=== PATIENT | female | born 1955 | race Caucasian/White ===

== ENCOUNTER 2016-07-04 10:21 | Emergency (ER) | payer BC ==
[~2016-07-04] VITALS: Ht 180.3 cm; Wt 69.4 kg
[2016-07-04] MEDS ORDERED: IV NORMAL SALINE 1000ML BAG 1,000 ML IV SCH (10:47)
--- NOTE | 2016-07-04 10:47 | PHYS DOC ---
Past Medical History Past Medical History: No Pertinent History Past Surgical History: No Surgical History Alcohol Use: None Drug Use: None Adult General Chief Complaint Chief Complaint: NAUSEA/VOMITING/DIARRHA HPI HPI Patient is a 60 year old female who presents with N/V/D. Patient reports she has been sick for the past 3 days. Her symptoms include sore throat, L ear ache , fatigue, N/V/D (vomiting and diarrhea every couple hours yesterday), general body aches. She denies fever. She has tried mucinex, nyquil, aspirin with insufficient relief. She has been around her nephew who is sick. No other acute complaints. Review of Systems Review of Systems Constitutional: Fatigue. Denies fever or chills Eyes: Denies change in visual acuity or eye pain HENT: Sore throat, L ear ache Respiratory: Denies cough or shortness of breath Cardiovascular: Denies chest pain GI: Nausea/vomiting/diarrhea. Denies abdominal pain, bloody stools : Denies dysuria or hematuria Musculoskeletal: General body aches Integument: Denies rash or skin lesions Neurologic: Denies headache, focal weakness or sensory changes Current Medications Current Medications Current Medications Medications (Trade) Dose Ordered Sig/Jase Start Time Stop Time Status Last Admin Dose Admin Famotidine (Pepcid) 20 mg 1X ONCE 07/04/16 11:00 07/04/16 11:01 DC 07/04/16 10:56 20 MG Ondansetron HCl (Zofran) 4 mg 1X ONCE 07/04/16 11:00 07/04/16 11:01 DC 07/04/16 10:57 4 MG Sodium Chloride (Iv Sodium Chloride 0.9% 1000ml Bag) 1,000 ml @ 1,000 mls/hr Q1H 07/04/16 10:47 07/04/16 11:46 DC 07/04/16 10:52 1,000 MLS/HR Allergies Allergies Allergies Coded Allergies Type Severity Reaction Last Updated Verified No Known Drug Allergies 07/04/16 No Physical Exam Physical Exam Constitutional: Well developed, well nourished, no acute distress, non-toxic appearance HENT: Normocephalic, atraumatic, bilateral external ears normal. L ear canal slightly erythematous, TM normal Eyes: EOMI, conjunctiva normal, no discharge Neck: Normal range of motion, no stridor Cardiovascular: Tachycardic, regular rhythm, no murmur Lungs & Thorax: Bilateral breath sounds clear to auscultation Abdomen: Bowel sounds normal, soft, non-distended, no TTP Skin: Warm, dry, no erythema, no rash Extremities: No obvious deformity, no edema Neurologic: Alert and oriented X 3, no gross deficits noted Current Patient Data Vital Signs Vital Signs Date Time Temp Pulse Resp B/P Pulse Ox O2 Delivery O2 Flow Rate FiO2 07/04/16 12:10 77 20 136/64 94 07/04/16 10:36 97.8 Room Air 97.8 Lab Values Laboratory Tests Test 07/04/16 10:30 07/04/16 10:50 Urine Collection Type Unknown Urine Color Hollie Urine Clarity Clear Urine pH 6.0 Urine Specific [place] >=1.030 Urine Protein >=300mg/dL (NEG-TRACE) Urine Glucose (UA) Negativemg/dL (NEG) Urine Ketones (Stick) Negativemg/dL (NEG) Urine Blood Small (NEG) Urine Nitrite Negative (NEG) Urine Bilirubin Small (NEG) Urine Urobilinogen Dipstick 1.0mg/dL (0.2 mg/dL) Urine Leukocyte Esterase Trace (NEG) Urine RBC Occ/HPF (0-2) Urine WBC Occ/HPF (0-4) Urine Squamous Epithelial Cells Few/LPF Urine Bacteria Few/HPF (0-FEW) White Blood Count 12.3x10^3/uL (4.0-11.0) H Red Blood Count 5.06x10^6/uL (3.50-5.40) Hemoglobin 14.4g/dL (12.0-15.5) Hematocrit 43.0% (36.0-47.0) Mean Corpuscular Volume 85fL (79-100) Mean Corpuscular Hemoglobin 29pg (25-35) Mean Corpuscular Hemoglobin Concent 34g/dL (31-37) Red Cell Distribution Width 13.8% (11.5-14.5) Platelet Count 291x10^3/uL (140-400) Neutrophils (%) (Auto) 78% (31-73) H Lymphocytes (%) (Auto) 14% (24-48) L Monocytes (%) (Auto) 5% (0-9) Eosinophils (%) (Auto) 1% (0-3) Basophils (%) (Auto) 1% (0-3) Neutrophils # (Auto) 9.6x10^3uL (1.8-7.7) H Lymphocytes # (Auto) 1.7x10^3/uL (1.0-4.8) Monocytes # (Auto) 0.6x10^3/uL (0.0-1.1) Eosinophils # (Auto) 0.1x10^3/uL (0.0-0.7) Basophils # (Auto) 0.1x10^3/uL (0.0-0.2) Sodium Level 136mmol/L (136-145) Potassium Level 3.5mmol/L (3.5-5.1) Chloride Level 98mmol/L (98-107) Carbon Dioxide Level 25mmol/L (21-32) Anion Gap 13 (6-14) Blood Urea Nitrogen 15mg/dL (7-20) Creatinine 0.6mg/dL (0.6-1.0) Estimated GFR (Cockcroft-Gault) 102.7 BUN/Creatinine Ratio 25 (6-20) H Glucose Level 131mg/dL (70-99) H Calcium Level 9.3mg/dL (8.5-10.1) Total Bilirubin 0.3mg/dL (0.2-1.0) Aspartate Amino Transferase (AST) 9U/L (15-37) L Alanine Aminotransferase (ALT) 18U/L (14-59) Alkaline Phosphatase 143U/L (46-116) H Total Protein 8.1g/dL (6.4-8.2) Albumin 3.6g/dL (3.4-5.0) Albumin/Globulin Ratio 0.8 (1.0-1.7) L Laboratory Tests 07/04/16 10:50 Laboratory Tests 07/04/16 10:50 EKG EKG [] Radiology/Procedures Radiology/Procedures [] Course & Med Decision Making Course & Med Decision Making Pertinent Labs and Imaging studies reviewed. (See chart for details) Patient is 60 year old female who presents with N/V/D, fatigue, body aches. Likely viral gastroenteritis. Will check labs, UA. IVF, nausea meds, pepcid ordered for relief of symptoms. Labs show mild leukocytosis, otherwise largely unremarkable. Discussed results with patient, who is feeling better at this time. Will plan discharge home with rx for zofran, instructions for follow up, return precautions. Dragon Disclaimer Dragon Disclaimer This electronic medical record was generated, in whole or in part, using a voice recognition dictation system. Departure Departure Impression: Primary Impression: Gastroenteritis Disposition: 01 HOME, SELF-CARE Condition: IMPROVED Referrals: MAYA MEDINA MD (PCP) Patient Instructions: Viral Gastroenteritis Additional Instructions: Thank you for allowing us to provide care today in the Emergency Department. Take the provided medication as directed. It is important that you stay well hydrated. Schedule a follow up appointment with your primary care doctor. Return promptly to the Emergency Department if you develop any new or concerning symptoms. Scripts Ondansetron (Zofran Odt)4 Mg Tab.rapdis1 Tab SL Q8HRS PRN NAUSEA #15 TAB Prov:TASHA LARSON MD 07/04/16 TASHA LARSON MD Jul 04, 2016 10:47
[2016-07-04] MEDS ORDERED: ONDANSETRON PF 4 MG/2 ML VIAL. IV ONE (11:00)
[2016-07-04] MEDS ORDERED: FAMOTIDINE 20 MG/2 ML VIAL IVP ONE (11:00)
[2016-07-04 11:04] LABS: BASO # 0.1 x10^3/uL (0.0-0.2); BASO % 1 % (0-3); EOS % 1 % (0-3); HEMOGLOBIN 14.4 g/dL (12.0-15.5); LYMPH # 1.7 x10^3/uL (1.0-4.8); LYMPH % 14 % (24-48); MEAN CORPUSCULAR HEMOGLOBIN 29 pg (25-35); MEAN CORPUSCULAR HGB CONC 34 g/dL (31-37); MEAN CORPUSCULAR VOLUME 85 fL (79-100); MONO % 5 % (0-9); NEUT % 78 % (31-73); PLATELET COUNT 291 x10^3/uL (140-400); RED BLOOD COUNT 5.06 x10^6/uL (3.50-5.40); RED CELL DISTRIBUTION WIDTH 13.8 % (11.5-14.5); WHITE BLOOD COUNT 12.3 x10^3/uL (4.0-11.0)
[2016-07-04 11:10] LABS: CALCIUM 9.3 mg/dL (8.5-10.1); CREATININE 0.6 mg/dL (0.6-1.0); GFR 102.7; POTASSIUM 3.5 mmol/L (3.5-5.1)
[2016-07-04 11:16] LABS: ALBUMIN 3.6 g/dL (3.4-5.0); ALBUMIN/GLOBULIN RATIO 0.8 (1.0-1.7); TOTAL BILIRUBIN 0.3 mg/dL (0.2-1.0); TOTAL PROTEIN 8.1 g/dL (6.4-8.2)
[2016-07-04 11:18] LABS: BILIRUBIN,URINE SMALL (NEG); GLUCOSE,URINE NEGATIVE (NEG); NITRITE,URINE NEGATIVE (NEG); PROTEIN,URINE >=300 mg/dL (NEG-TRACE)
[2016-07-04 11:46] LABS: BACTERIA,URINE FEW /HPF (0-FEW); RBC,URINE OCC /HPF (0-2); SQUAMOUS EPITHELIAL CELL,UR FEW /LPF; WBC,URINE OCC /HPF (0-4)
[2016-07-04] MEDS ORDERED: ONDA4TAB10 SL (11:58)
[2016-07-04 12:10] VITALS: BP 136/64
== END 2016-07-04 12:11 | disposition home or self-care (01) ==
LOC: ER 10:21
DX: K52.9 Noninfective gastroenteritis and colitis, unspecified (principal); R00.0 Tachycardia, unspecified; J02.9 Acute pharyngitis, unspecified; H92.02 Otalgia, left ear; R53.83 Other fatigue; M79.1 Myalgia
CPT/HCPCS: 36415; 80053; 81001; 85027; 87086; 96361; 96374; 96375; 99284; J2405; J7030; S0028

== ENCOUNTER 2016-07-08 16:56 | Observation (INO) | payer BC ==
[~2016-07-08] VITALS: Ht 180.3 cm; Wt 64.6 kg
[~2016-07-08 16:56] MED LIST: ONDA4TAB10 SL
[2016-07-08] MEDS ORDERED: MORPHINE SULFATE 2 MG/ML DISP.SYRIN. IV PRN ×2 (17:15→19:30)
[2016-07-08] MEDS ORDERED: HYDROCODONE/APAP 5/325MG TABLET. PO ONE (17:15)
[2016-07-08] MEDS ORDERED: ASPIRIN 81 MG TAB.CHEW PO ONE (17:15)
[2016-07-08] MEDS ORDERED: NITROGLYCERIN SUBLINGUAL 0.4 MG BOTTLE OF 25. SL PRN (17:15)
[2016-07-08 17:41] LABS: BASO % 0 % (0-3); EOS % 1 % (0-3); HEMATOCRIT 37.5 % (36.0-47.0); HEMOGLOBIN 12.5 g/dL (12.0-15.5); LYMPH # 1.7 x10^3/uL (1.0-4.8); LYMPH % 11 % (24-48); MEAN CORPUSCULAR HEMOGLOBIN 29 pg (25-35); MEAN CORPUSCULAR HGB CONC 33 g/dL (31-37); MEAN CORPUSCULAR VOLUME 86 fL (79-100); MONO % 6 % (0-9); NEUT % 82 % (31-73); PLATELET COUNT 269 x10^3/uL (140-400); RED BLOOD COUNT 4.39 x10^6/uL (3.50-5.40); RED CELL DISTRIBUTION WIDTH 13.6 % (11.5-14.5); WHITE BLOOD COUNT 15.1 x10^3/uL (4.0-11.0)
[2016-07-08 18:03] LABS: CALCIUM 9.4 mg/dL (8.5-10.1); CREATININE 0.5 mg/dL (0.6-1.0); GFR 126.7; POTASSIUM 3.5 mmol/L (3.5-5.1)
[2016-07-08 18:08] LABS: ALBUMIN 3.7 g/dL (3.4-5.0); DIRECT BILIRUBIN 0.1 mg/dL (0.0-0.2); TOTAL BILIRUBIN 0.3 mg/dL (0.2-1.0); TOTAL PROTEIN 7.5 g/dL (6.4-8.2)
--- NOTE | 2016-07-08 19:27 | PHYS DOC ---
Past Medical History Past Medical History: No Pertinent History Past Surgical History: No Surgical History Alcohol Use: None Drug Use: None Adult General Chief Complaint Chief Complaint: COUGH HPI HPI 52-year-old female presenting to the emergency department today with a cough. Feels a pain in her left neck and shoulder. The pain radiates up her left neck into her occiput. It is sharp moderate and intermittent. It is worse with movement. She also complains of a sharp pain in her chest is worse with coughing. Review of Systems Review of Systems ROS negative for fevers chills nausea vomiting diaphoresis. All other review of systems is negative unless otherwise noted in history of present illness. Current Medications Current Medications Current Medications Medications (Trade) Dose Ordered Sig/Jase Start Time Stop Time Status Last Admin Dose Admin Acetaminophen/ Hydrocodone Bitart (Lortab 5/325) 2 tab 1X ONCE 07/08/16 17:15 07/08/16 17:16 DC 07/08/16 17:37 2 TAB Aspirin (Children'S Aspirin) 324 mg 1X ONCE 07/08/16 17:15 07/08/16 17:16 DC 07/08/16 17:37 324 MG Azithromycin (Zithromax) 500 mg 1X ONCE 07/08/16 19:30 07/08/16 19:32 DC 07/08/16 19:44 500 MG Morphine Sulfate 2 mg PRN Q2HR PRN 07/08/16 19:30 07/09/16 19:29 Nitroglycerin (Nitrostat) 0.4 mg PRN Q5MIN PRN 07/08/16 17:15 07/08/16 17:15 DC Ondansetron HCl (Zofran) 4 mg PRN Q8HRS PRN 07/08/16 19:30 07/09/16 19:29 Allergies Allergies Allergies Coded Allergies Type Severity Reaction Last Updated Verified No Known Drug Allergies 07/04/16 No Physical Exam Physical Exam Constitutional: Well developed, well nourished, no acute distress, non-toxic appearance. HENT: Normocephalic, atraumatic, bilateral external ears normal, oropharynx moist, no oral exudates, nose normal. [] Eyes: PERRLA, EOMI, conjunctiva normal, no discharge. [] Neck: Normal range of motion, no tenderness, supple, no stridor. Cardiovascular:Heart rate regular rhythm, no murmur [] Lungs & Thorax: Bilateral breath sounds clear to auscultation Abdomen: Bowel sounds normal, soft, no tenderness, no masses, no pulsatile masses. [] Skin: Warm, dry, no erythema, no rash. [] Back: No tenderness, no CVA tenderness. Extremities: No tenderness, no cyanosis, no clubbing, ROM intact, no edema. [] Neurologic: Alert and oriented X 3, normal motor function, normal sensory function, no focal deficits noted. Psychologic: Affect normal, judgement normal, mood normal. [] Current Patient Data Vital Signs Vital Signs Date Time Temp Pulse Resp B/P Pulse Ox O2 Delivery O2 Flow Rate FiO2 07/08/16 18:05 100 19 146/64 100 07/08/16 17:08 98.6 Room Air 98.6 Lab Values Laboratory Tests Test 07/08/16 17:30 White Blood Count 15.1x10^3/uL (4.0-11.0) H Red Blood Count 4.39x10^6/uL (3.50-5.40) Hemoglobin 12.5g/dL (12.0-15.5) Hematocrit 37.5% (36.0-47.0) Mean Corpuscular Volume 86fL (79-100) Mean Corpuscular Hemoglobin 29pg (25-35) Mean Corpuscular Hemoglobin Concent 33g/dL (31-37) Red Cell Distribution Width 13.6% (11.5-14.5) Platelet Count 269x10^3/uL (140-400) Neutrophils (%) (Auto) 82% (31-73) H Lymphocytes (%) (Auto) 11% (24-48) L Monocytes (%) (Auto) 6% (0-9) Eosinophils (%) (Auto) 1% (0-3) Basophils (%) (Auto) 0% (0-3) Neutrophils # (Auto) 12.3x10^3uL (1.8-7.7) H Lymphocytes # (Auto) 1.7x10^3/uL (1.0-4.8) Monocytes # (Auto) 0.9x10^3/uL (0.0-1.1) Eosinophils # (Auto) 0.1x10^3/uL (0.0-0.7) Basophils # (Auto) 0.0x10^3/uL (0.0-0.2) Sodium Level 139mmol/L (136-145) Potassium Level 3.5mmol/L (3.5-5.1) Chloride Level 100mmol/L (98-107) Carbon Dioxide Level 26mmol/L (21-32) Anion Gap 13 (6-14) Blood Urea Nitrogen 13mg/dL (7-20) Creatinine 0.5mg/dL (0.6-1.0) L Estimated GFR (Cockcroft-Gault) 126.7 Glucose Level 144mg/dL (70-99) H Calcium Level 9.4mg/dL (8.5-10.1) Total Bilirubin 0.3mg/dL (0.2-1.0) Direct Bilirubin 0.1mg/dL (0.0-0.2) Aspartate Amino Transferase (AST) 5U/L (15-37) L Alanine Aminotransferase (ALT) 12U/L (14-59) L Alkaline Phosphatase 124U/L (46-116) H Troponin I Quantitative < 0.017ng/mL (0.000-0.055) TP-Nkn-E-Type Natriuretic Peptide 3035pg/mL (0-124) H Total Protein 7.5g/dL (6.4-8.2) Albumin 3.7g/dL (3.4-5.0) Lipase 80U/L (73-393) Laboratory Tests 07/08/16 17:30 Laboratory Tests 07/08/16 17:30 EKG EKG EKG shows sinus tachycardia. Intervals within normal limits. [place] is within normal limits. ST segments show minimal repolarization and are within normal limits. Radiology/Procedures Radiology/Procedures [] Chest x-ray shows mild pulmonary congestion. No pneumothorax or infiltrate present. Course & Med Decision Making Course & Med Decision Making Pertinent Labs and Imaging studies reviewed. (See chart for details) 52-year-old female presenting to the emergency department today with left neck and shoulder pain with coughing. Physical exam unremarkable. Vital signs showed tachycardia with hypertension. EKG largely unremarkable other than tachycardia. Chest x-ray showed mild vascular congestion. BC shows leukocytosis with a proBNP elevation of 3000. Troponin within the reference range of normal. The patient was given oral antibiotics along with pain medication and aspirin in the emergency department and admitted for further evaluation workup and care. Cardiology consultation placed. Dragon Disclaimer Dragon Disclaimer This electronic medical record was generated, in whole or in part, using a voice recognition dictation system. Departure Departure Impression: Primary Impression: PNA (pneumonia) Additional Impression: Elevated brain natriuretic peptide (BNP) level Disposition: ADMITTED INPATIENT Admitting Physician: Maya Esquivel Condition: STABLE Referrals: MAYA ESQUIVEL MD (PCP) Problem Qualifiers VALORIE JACOBSEN MD Jul 08, 2016 19:27
[2016-07-08] MEDS ORDERED: AZITHROMYCIN 250 MG TABLET PO ONE (19:30)
[2016-07-08] MEDS ORDERED: ONDANSETRON PF 4 MG/2 ML VIAL. IV PRN (19:30)
[2016-07-08 20:59] LABS: OBC FLU VALID
--- NOTE | 2016-07-08 21:26 | EKG ---
[facility] [address] [place] [address] Test Date: 2016-07-08 Test Time: 17:07:49 Pat Name: IRIS GIBBS Department: Room: Gender: Female [place]: : 1955 Requested By: VALORIE JACOBSEN Order Number: [id number] Reading MD: Madelaine Brito Measurements Intervals [place] Rate: 111 P: 52 IL: 156 QRS: 57 QRSD: 84 T: 65 QT: 330 QTc: 452 Interpretive Statements SINUS TACHYCARDIA LEFT ATRIAL ABNORMALITY ABNORMAL ECG RI6.01 No previous ECG available for comparison Electronically Signed On 07-11-2016 23:25:29 SIGNAL CONSTRUCTOR by Madelaine Brito
--- NOTE | 2016-07-08 21:26 | ACF ---
Admission Forms Criteria PNEUMONIA, COMMUNITY ACQUIRED Clinical Indications for Admission to Inpatient Care ( Place 'X' for any and all applicable criteria): Admission is indicated for ANY ONE of the following (1)(2)(3): [ ]I. Hypoxemia indicated by ANY ONE of the following: [ ]a) Oxygen saturation less than 90% while breathing room air [ ]b) PO2 less than 60 mm Hg (8.0 kPa) while breathing room air [ ]c) Chronic lung disease with significant deterioration from baseline oxygenation [X ]II. Appropriate diagnostic testing and treatment unavailable in outpatient or recovery facility (eg,testing or infection control measures unavailable(10) [ ]III. Moderate-risk or high-risk category patients (Pneumonia Severity Index (PSI) class IV or V, or CURB-65 score of 3 or greater). [ ]IV. Outpatient treatment failure as indicated by ANY ONE of the following(9) : [ ]a) Failure to respond to antibiotic (eg, resistant organism) [ ]b) Clinically significant adverse effects from medication (eg, vomiting) [ ]c) Complications of pneumonia (eg, empyema, bacteremia) [ ]d) Significant worsening of comorbid cond necessitating inpatient care (eg, chronic heart failure) [ ]V. Intermediate-risk category patients (eg, PSI class III or CURB-65 score 2) who do not improve with initial therapy and observation. [ ]. Immunocompromised patients (eg, AIDS, chronic steroid use) at moderate or high risk based on clinical evaluation. [ ]VII. Complicated pleural effusions (eg, exudative, loculated) [X ]VIII.Hemodynamic instability [ ] IX. Altered mental status that is severe or persistent. [ ]X. Dehydration that is severe or persistent. [ ]XI. Bacteremia [ ]XII. Respiratory finding (eg. tachypnea) that do not respond to outpatient or observation care treatment Extended stay beyond goal length of stay may be needed for (20) [ ]a) Unclear diagnosis [ ]b) Pleural disease [ ]c) Severe pneumonia or treatment failure (25 [ ]d) Respiratory failure (anticipate invasive or noninvasive ventilatory support) [ ]e) Abnormal serum electrolytes (serum Na concentration less than 135 mEq/L (mmol/L) (32)(33) [ ]f) Clinically significant comorbid illness (eg, heart failure, atrial fibrillation with rapid heart rate, alcohol withdrawal, renal insufficiency)(34)(35) [ ]g) Comorbid acute exacerbation of COPD(36) [ ]h) Concomitant diagnosis of malignancy that may be associated with malnutrition, immunologic impairment, or bronchial obstruction. [ ]i) Concomitant altered mental status [ ]j) Culture-identified Gram-negative or antibiotic-resistant organism (eg, Pseudomonas, methicillin-resistant Staphylococcus aureus)(30) [ ]k) Healthcare-associated pneumonia The original [employer] content created by [employer] has been revised. The portions of the content which have been revised are identified through the use of italic text or in bold, and [facility] has neither reviewed nor approved the modified material. All other unmodified content is copyright [employer]. Please see references footnoted in the original [employer] edition 2016 Admission Criteria Met?: Yes ALVARADO CABRERA Jul 08, 2016 21:26
[2016-07-08 22:30] VITALS: BP 149/70
[2016-07-08 23:02] VITALS: BP 144/69
[2016-07-08] MEDS ORDERED: PROCHLORPERAZINE 10 MG/2 ML VIAL. IM PRN (23:30)
--- NOTE | 2016-07-09 00:18 | HP ---
ADMIT DATE: 07/08/2016 CHIEF COMPLAINT: Shoulder pain, elevated BNP. HISTORY OF PRESENT ILLNESS: The patient is a 60-year-old woman, without any significant medical problems, who presented to the Emergency Room for the second time in 1 week, today with left trapezius muscle pain. She relates that she was actually here on Tuesday with upper respiratory symptoms. Had general malaise without any fevers. Got IV fluids and actually felt much better. Went home from the Emergency Room and rested for a few days. She went back to work today, did fairly well during her work day; however, suddenly started having shoulder pain in her left upper shoulder. 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 States that pain actually got worse with deep breathing and now actually has significantly improved. She did receive Lortab x 2 in the Emergency Room; is a bit nauseous and received Zofran, but has ongoing symptoms. In her evaluation, a proBNP was obtained for unknown reasons and this was resulted at 3000, raising concern for CHF. Chest x-ray, however, was negative. She is now admitted for further workup and care. PAST MEDICAL HISTORY: None. FAMILY HISTORY: Father with heart disease, at 64. Mother with stroke. SOCIAL HISTORY: Lives with her sister. Works at [employer]. Smokes about a pack and a half a day and has done this for the past few days as well. Denies any alcohol or drug use. ALLERGIES: No known drug allergies. MEDICATIONS: No home medications. REVIEW OF SYSTEMS: Positive as per HPI. Rest of organ system review is negative. PHYSICAL EXAMINATION: VITAL SIGNS: From today, show a blood pressure of 144/69, heart rate at 103, respiratory rate at 20. She is afebrile. GENERAL: This is an ill-appearing, 60-year-old, woman. Alert and oriented. No acute distress. HEENT: Shows no scleral icterus. NECK: Supple, without any lymphadenopathy. LUNGS: Fairly clear bilaterally. HEART: Regular rate and rhythm. ABDOMEN: Has positive bowel sounds, soft, nontender. EXTREMITIES: Show no edema. Shoulder on the left without any tenderness to palpation. She is able to move arm without difficulties. LABORATORY DATA: CBC from today shows WBC of 15.1, hemoglobin 12.5, platelets at 269, neutrophils at 82. Chemistries with BUN and creatinine of 13 and 0.5, normal electrolytes, normal LFTs. BNP of 3035. First troponin negative. Serologies for flu A and B are negative. RADIOGRAPHIC IMAGING: Chest x-ray reviewed by myself shows a left lingular infiltrate. ASSESSMENT AND PLAN: The patient is a 60-year-old woman, with suspected pneumonia. BNP is somewhat of a red jc in her presentation. We will admit. Continue azithromycin, which had been started in the Emergency Room for 2 additional days for atypical pneumonia. Currently not producing any sputum. She will receive ibuprofen for her pain as this does seem musculoskeletal/possible pleuritic given the worsening with deep breathing. Suspect that the 10 mg of Lortab has caused the nausea and vomiting that is currently ongoing. This had not been present at presentation. BNP is elevated and somewhat unexplained. She clearly does not have cardiomegaly. We will obtain echo to rule out cardiac etiology. We will keep her on gentle IV fluids. She can have regular diet. Blood pressure at admission was normal, but has been somewhat elevated at borderline measurements since then. We will monitor overnight. If persistent, consider starting blood pressure medications. For prophylaxis, we will start on H2-pako. Lovenox in a.m. if prolonged hospitalization is required. LEXIS FISCHER MD DR: PO/nts JOB#: [id number] / [id number] JAYDA
[2016-07-09 03:04] VITALS: BP 144/66
[2016-07-09] MEDS ORDERED: ACETAMINOPHEN 325 MG TABLET. PO PRN (03:45)
[2016-07-09] MEDS ORDERED: IV 1/2 NORMAL SALINE 1,000 ML IV SCH (03:45)
[2016-07-09] MEDS: ACETAMINOPHEN 325 MG TABLET. PO PRN ×2 (04:12→23:25)
[2016-07-09 07:00] VITALS: BP 131/58
[2016-07-09 07:38] LABS: BASO # 0.1 x10^3/uL (0.0-0.2); BASO % 1 % (0-3); EOS % 1 % (0-3); HEMATOCRIT 36.6 % (36.0-47.0); LYMPH # 2.2 x10^3/uL (1.0-4.8); LYMPH % 22 % (24-48); MEAN CORPUSCULAR HEMOGLOBIN 28 pg (25-35); MEAN CORPUSCULAR HGB CONC 33 g/dL (31-37); MEAN CORPUSCULAR VOLUME 86 fL (79-100); MONO % 5 % (0-9); NEUT % 71 % (31-73); PLATELET COUNT 258 x10^3/uL (140-400); RED BLOOD COUNT 4.25 x10^6/uL (3.50-5.40); RED CELL DISTRIBUTION WIDTH 13.3 % (11.5-14.5); WHITE BLOOD COUNT 10.1 x10^3/uL (4.0-11.0)
[2016-07-09 07:39] LABS: CREATININE 0.4 mg/dL (0.6-1.0); GFR 163.9; POTASSIUM 3.6 mmol/L (3.5-5.1)
--- NOTE | 2016-07-09 08:37 | RAD ---
Indication left-sided chest pain. A single view of the chest was obtained. No prior imaging is available. Heart size is within normal limits. There is no gross congestive heart failure. There is slight interstitial prominence which may reflect background chronic fibrotic changes. An interstitial inflammatory process is not entirely excluded. There is a rectangular density over the left mid chest likely reflecting pleural-parenchymal scarring. Significant pleural fluid is not present and there is no pneumothorax. There are scattered punctate areas of demineralization in the left humeral diaphysis. The etiology is unclear. Clinical correlation as to the possibility and/or likelihood of bony disorder advised. IMPRESSION: Mild interstitial prominence. See above discussion. Probable pleural-parenchymal scarring in the left chest. Possible bony abnormality. See above discussion
[2016-07-09] MEDS: FAMOTIDINE 20 MG TABLET. PO SCH (09:24)
[2016-07-09] MEDS: DOXYCYCLINE HYCLATE 100 MG TABLET PO SCH ×2 (09:24→21:14)
[2016-07-09 11:00] VITALS: BP 125/57
--- NOTE | 2016-07-09 12:11 | PDOC ---
PROGRESS NOTES Chief Complaint Chief Complaint cough, shortness of breath elevated BNP level History of Present Illness History of Present Illness Patient lying on her side when evaluated this morning. Patient tearfully expressed that she was uncomfortable and not feeling well. Complained of some shortness of breath. Is a current smoker. Pt does not currently carry a diagnosis of COPD. Pt was febrile to 100.2 last night, but is at this time afebrile. Would like to try Chantix upon discharge for smoking cessation. Aware of any adverse effects, but states that it worked well for her sister. Vitals Vitals Vital Signs Date Time Temp Pulse Resp B/P Pulse Ox O2 Delivery O2 Flow Rate FiO2 07/09/16 07:00 97.7 91 20 131/58 92 Room Air 97.7 07/08/16 22:30 2.0 Physical Exam General: Alert, Oriented X3, mild distress (tearful) Heart: Regular rate, Normal S1, Normal S2 Lungs: Other (mostly clear lung lara) Abdomen: Soft, No tenderness Extremities: No cyanosis, No edema, Normal pulses Skin: Other (rashes on b/l UE) Labs LABS Laboratory Tests Test 07/08/16 17:30 07/08/16 20:30 07/09/16 01:30 07/09/16 07:12 White Blood Count 15.1x10^3/uL (4.0-11.0) 10.1x10^3/uL (4.0-11.0) Red Blood Count 4.39x10^6/uL (3.50-5.40) 4.25x10^6/uL (3.50-5.40) Hemoglobin 12.5g/dL (12.0-15.5) 12.0g/dL (12.0-15.5) Hematocrit 37.5% (36.0-47.0) 36.6% (36.0-47.0) Mean Corpuscular Volume 86fL (79-100) 86fL (79-100) Mean Corpuscular Hemoglobin 29pg (25-35) 28pg (25-35) Mean Corpuscular Hemoglobin Concent 33g/dL (31-37) 33g/dL (31-37) Red Cell Distribution Width 13.6% (11.5-14.5) 13.3% (11.5-14.5) Platelet Count 269x10^3/uL (140-400) 258x10^3/uL (140-400) Neutrophils (%) (Auto) 82% (31-73) 71% (31-73) Lymphocytes (%) (Auto) 11% (24-48) 22% (24-48) Monocytes (%) (Auto) 6% (0-9) 5% (0-9) Eosinophils (%) (Auto) 1% (0-3) 1% (0-3) Basophils (%) (Auto) 0% (0-3) 1% (0-3) Neutrophils # (Auto) 12.3x10^3uL (1.8-7.7) 7.2x10^3uL (1.8-7.7) Lymphocytes # (Auto) 1.7x10^3/uL (1.0-4.8) 2.2x10^3/uL (1.0-4.8) Monocytes # (Auto) 0.9x10^3/uL (0.0-1.1) 0.5x10^3/uL (0.0-1.1) Eosinophils # (Auto) 0.1x10^3/uL (0.0-0.7) 0.1x10^3/uL (0.0-0.7) Basophils # (Auto) 0.0x10^3/uL (0.0-0.2) 0.1x10^3/uL (0.0-0.2) Sodium Level 139mmol/L (136-145) 140mmol/L (136-145) Potassium Level 3.5mmol/L (3.5-5.1) 3.6mmol/L (3.5-5.1) Chloride Level 100mmol/L (98-107) 101mmol/L (98-107) Carbon Dioxide Level 26mmol/L (21-32) 29mmol/L (21-32) Anion Gap 13 (6-14) 10 (6-14) Blood Urea Nitrogen 13mg/dL (7-20) 8mg/dL (7-20) Creatinine 0.5mg/dL (0.6-1.0) 0.4mg/dL (0.6-1.0) Estimated GFR (Cockcroft-Gault) 126.7 163.9 Glucose Level 144mg/dL (70-99) 108mg/dL (70-99) Calcium Level 9.4mg/dL (8.5-10.1) 9.0mg/dL (8.5-10.1) Total Bilirubin 0.3mg/dL (0.2-1.0) Direct Bilirubin 0.1mg/dL (0.0-0.2) Aspartate Amino Transf (AST/SGOT) 5U/L (15-37) Alanine Aminotransferase (ALT/SGPT) 12U/L (14-59) Alkaline Phosphatase 124U/L (46-116) Troponin I Quantitative < 0.017ng/mL (0.000-0.055) < 0.017ng/mL (0.000-0.055) < 0.017ng/mL (0.000-0.055) NR-Wjs-A-Type Natriuretic Peptide 3035pg/mL (0-124) Total Protein 7.5g/dL (6.4-8.2) Albumin 3.7g/dL (3.4-5.0) Lipase 80U/L (73-393) Influenza Type A Antigen Negative (NEGATIVE) Influenza Type B Antigen Negative (NEGATIVE) Review of Systems Review of Systems malaise, shortness of breath no longer febrile, denies chills denies chest pain Assessment and Plan Assessmemt and Plan ASSESSMENT: - cough, shortness of breath - atypical pneumonia - elevated BNP level PLAN: - cardiology and pulmonology consulted, will await their input - duoneb q6h - will discontinue IVF - cont O2 supplementation - continue cardiac monitoring - will follow cardiac enzymes - will await echo results Problems: Comment Review of Relevant I have reviewed the following items norma (where applicable) has been applied. Labs Laboratory Tests Test 07/08/16 17:30 07/08/16 20:30 07/09/16 01:30 07/09/16 07:12 White Blood Count 15.1x10^3/uL (4.0-11.0) 10.1x10^3/uL (4.0-11.0) Red Blood Count 4.39x10^6/uL (3.50-5.40) 4.25x10^6/uL (3.50-5.40) Hemoglobin 12.5g/dL (12.0-15.5) 12.0g/dL (12.0-15.5) Hematocrit 37.5% (36.0-47.0) 36.6% (36.0-47.0) Mean Corpuscular Volume 86fL (79-100) 86fL (79-100) Mean Corpuscular Hemoglobin 29pg (25-35) 28pg (25-35) Mean Corpuscular Hemoglobin Concent 33g/dL (31-37) 33g/dL (31-37) Red Cell Distribution Width 13.6% (11.5-14.5) 13.3% (11.5-14.5) Platelet Count 269x10^3/uL (140-400) 258x10^3/uL (140-400) Neutrophils (%) (Auto) 82% (31-73) 71% (31-73) Lymphocytes (%) (Auto) 11% (24-48) 22% (24-48) Monocytes (%) (Auto) 6% (0-9) 5% (0-9) Eosinophils (%) (Auto) 1% (0-3) 1% (0-3) Basophils (%) (Auto) 0% (0-3) 1% (0-3) Neutrophils # (Auto) 12.3x10^3uL (1.8-7.7) 7.2x10^3uL (1.8-7.7) Lymphocytes # (Auto) 1.7x10^3/uL (1.0-4.8) 2.2x10^3/uL (1.0-4.8) Monocytes # (Auto) 0.9x10^3/uL (0.0-1.1) 0.5x10^3/uL (0.0-1.1) Eosinophils # (Auto) 0.1x10^3/uL (0.0-0.7) 0.1x10^3/uL (0.0-0.7) Basophils # (Auto) 0.0x10^3/uL (0.0-0.2) 0.1x10^3/uL (0.0-0.2) Sodium Level 139mmol/L (136-145) 140mmol/L (136-145) Potassium Level 3.5mmol/L (3.5-5.1) 3.6mmol/L (3.5-5.1) Chloride Level 100mmol/L (98-107) 101mmol/L (98-107) Carbon Dioxide Level 26mmol/L (21-32) 29mmol/L (21-32) Anion Gap 13 (6-14) 10 (6-14) Blood Urea Nitrogen 13mg/dL (7-20) 8mg/dL (7-20) Creatinine 0.5mg/dL (0.6-1.0) 0.4mg/dL (0.6-1.0) Estimated GFR (Cockcroft-Gault) 126.7 163.9 Glucose Level 144mg/dL (70-99) 108mg/dL (70-99) Calcium Level 9.4mg/dL (8.5-10.1) 9.0mg/dL (8.5-10.1) Total Bilirubin 0.3mg/dL (0.2-1.0) Direct Bilirubin 0.1mg/dL (0.0-0.2) Aspartate Amino Transf (AST/SGOT) 5U/L (15-37) Alanine Aminotransferase (ALT/SGPT) 12U/L (14-59) Alkaline Phosphatase 124U/L (46-116) Troponin I Quantitative < 0.017ng/mL (0.000-0.055) < 0.017ng/mL (0.000-0.055) < 0.017ng/mL (0.000-0.055) OP-Sra-V-Type Natriuretic Peptide 3035pg/mL (0-124) Total Protein 7.5g/dL (6.4-8.2) Albumin 3.7g/dL (3.4-5.0) Lipase 80U/L (73-393) Influenza Type A Antigen Negative (NEGATIVE) Influenza Type B Antigen Negative (NEGATIVE) Laboratory Tests Test 07/08/16 17:30 07/08/16 20:30 07/09/16 01:30 07/09/16 07:12 White Blood Count 15.1x10^3/uL (4.0-11.0) 10.1x10^3/uL (4.0-11.0) Red Blood Count 4.39x10^6/uL (3.50-5.40) 4.25x10^6/uL (3.50-5.40) Hemoglobin 12.5g/dL (12.0-15.5) 12.0g/dL (12.0-15.5) Hematocrit 37.5% (36.0-47.0) 36.6% (36.0-47.0) Mean Corpuscular Volume 86fL (79-100) 86fL (79-100) Mean Corpuscular Hemoglobin 29pg (25-35) 28pg (25-35) Mean Corpuscular Hemoglobin Concent 33g/dL (31-37) 33g/dL (31-37) Red Cell Distribution Width 13.6% (11.5-14.5) 13.3% (11.5-14.5) Platelet Count 269x10^3/uL (140-400) 258x10^3/uL (140-400) Neutrophils (%) (Auto) 82% (31-73) 71% (31-73) Lymphocytes (%) (Auto) 11% (24-48) 22% (24-48) Monocytes (%) (Auto) 6% (0-9) 5% (0-9) Eosinophils (%) (Auto) 1% (0-3) 1% (0-3) Basophils (%) (Auto) 0% (0-3) 1% (0-3) Neutrophils # (Auto) 12.3x10^3uL (1.8-7.7) 7.2x10^3uL (1.8-7.7) Lymphocytes # (Auto) 1.7x10^3/uL (1.0-4.8) 2.2x10^3/uL (1.0-4.8) Monocytes # (Auto) 0.9x10^3/uL (0.0-1.1) 0.5x10^3/uL (0.0-1.1) Eosinophils # (Auto) 0.1x10^3/uL (0.0-0.7) 0.1x10^3/uL (0.0-0.7) Basophils # (Auto) 0.0x10^3/uL (0.0-0.2) 0.1x10^3/uL (0.0-0.2) Sodium Level 139mmol/L (136-145) 140mmol/L (136-145) Potassium Level 3.5mmol/L (3.5-5.1) 3.6mmol/L (3.5-5.1) Chloride Level 100mmol/L (98-107) 101mmol/L (98-107) Carbon Dioxide Level 26mmol/L (21-32) 29mmol/L (21-32) Anion Gap 13 (6-14) 10 (6-14) Blood Urea Nitrogen 13mg/dL (7-20) 8mg/dL (7-20) Creatinine 0.5mg/dL (0.6-1.0) 0.4mg/dL (0.6-1.0) Estimated GFR (Cockcroft-Gault) 126.7 163.9 Glucose Level 144mg/dL (70-99) 108mg/dL (70-99) Calcium Level 9.4mg/dL (8.5-10.1) 9.0mg/dL (8.5-10.1) Total Bilirubin 0.3mg/dL (0.2-1.0) Direct Bilirubin 0.1mg/dL (0.0-0.2) Aspartate Amino Transf (AST/SGOT) 5U/L (15-37) Alanine Aminotransferase (ALT/SGPT) 12U/L (14-59) Alkaline Phosphatase 124U/L (46-116) Troponin I Quantitative < 0.017ng/mL (0.000-0.055) < 0.017ng/mL (0.000-0.055) < 0.017ng/mL (0.000-0.055) IW-Vaa-W-Type Natriuretic Peptide 3035pg/mL (0-124) Total Protein 7.5g/dL (6.4-8.2) Albumin 3.7g/dL (3.4-5.0) Lipase 80U/L (73-393) Influenza Type A Antigen Negative (NEGATIVE) Influenza Type B Antigen Negative (NEGATIVE) Medications Current Medications Aspirin (Children'S Aspirin) 324 mg 1X ONCE PO Last administered on 07/08/16t 17:37; Start 07/08/16 at 17:15; Stop 07/08/16 at 17:16; Status DC Nitroglycerin (Nitrostat) 0.4 mg PRN Q5MIN PRN SL CHEST PAIN; Start 07/08/16 at 17:15; Stop 07/08/16 at 17:15; Status DC Morphine Sulfate 2 mg PRN Q1HR PRN IV SEVERE PAIN; Start 07/08/16 at 17:15; Stop 07/08/16 at 17:15; Status DC Acetaminophen/ Hydrocodone Bitart (Lortab 5/325) 2 tab 1X ONCE PO Last administered on 07/08/16 17:37; Start 07/08/16 at 17:15; Stop 07/08/16 at 17:16; Status DC Ondansetron HCl (Zofran) 4 mg PRN Q8HRS PRN IV NAUSEA/VOMITING; Start 07/08/16 at 19:30; Stop 07/09/16 at 19:29 Morphine Sulfate 2 mg PRN Q2HR PRN IV PAIN; Start 07/08/16 at 19:30; Stop at 23:23; Status DC Azithromycin (Zithromax) 500 mg 1X ONCE PO Last administered on 07/08/16 19:44 ; Start 07/08/16 at 19:30; Stop 07/08/16 at 19:32; Status DC Prochlorperazine Edisylate (Compazine) 10 mg PRN Q8HRS PRN IM NAUSEA/VOMITING Last administered on 07/09/16 00:59; Start 07/08/16 at 23:30 Famotidine (Pepcid) 20 mg DAILY PO Last administered on 07/09/16 09:24; Start 07/09/16 at 09:00 Acetaminophen (Tylenol) 650 mg PRN Q6HRS PRN PO MILD PAIN / TEMP; Start at 03:45; Stop 07/09/16 at 03:50; Status DC Doxycycline Hyclate 100 mg 100 mg BID PO Last administered on 07/09/16 09:24; Start 07/09/16 at 09:00 Sodium Chloride (Iv Sodium Chloride 0.45%) 1,000 ml @ 75 mls/hr [id number] IV Last administered on 07/09/16 04:13; Start 07/09/16 at 03:45 Acetaminophen (Tylenol) 650 mg PRN Q6HRS PRN PO MILD PAIN / TEMP Last administered on 07/09/16t 04:12; Start 07/09/16 at 04:00; Stop 07/10/16 at 03:30 Active Scripts Active Zofran Odt (Ondansetron) 4 Mg Tab.rapdis 1 Tab SL Q8HRS PRN Vitals/I & O Vital Sign - Last 24 Hours 07/08/16 07/08/16 07/08/16 07/08/16 17:08 17:30 17:37 18:00 Temp 98.6 98.6 Pulse 110 100 100 Resp 20 23 12 16 B/P 139/65 135/64 139/61 Pulse Ox 94 100 100 O2 Delivery Room Air 07/08/16 07/08/16 07/08/16 07/08/16 18:05 19:30 20:07 20:30 Pulse 100 102 98 94 Resp 19 16 20 20 B/P 146/64 127/60 142/65 159/69 Pulse Ox 100 90 96 94 O2 Delivery Room Air Nasal Cannula Nasal Cannula O2 Flow Rate 2 2 07/08/16 07/08/16 07/08/16 07/08/16 21:00 21:30 22:30 22:30 Temp 98.6 98.6 Pulse 94 96 96 Resp 18 20 B/P 153/68 149/70 149/70 Pulse Ox 94 95 95 O2 Delivery Nasal Cannula Room Air O2 Flow Rate 2 2 2.0 07/08/16 07/09/16 07/09/16 23:02 03:04 07:00 Temp 98.5 100.2 97.7 98.5 100.2 97.7 Pulse 103 111 91 Resp 20 20 20 B/P 144/69 144/66 131/58 Pulse Ox 94 92 92 O2 Delivery Room Air Room Air Room Air Intake and Output 07/08/16 07/08/16 07/09/16 15:00 23:00 07:00 Output Total 3 ml Balance -3 ml JOSELUIS CONTRERAS III DO Jul 09, 2016 12:11
[2016-07-09 12:24] LABS: CHOLESTEROL/HDL RATIO 3.8
[2016-07-09] MEDS: IPRATRPIUM/ALBUTEROL 0.5/2.5MG 3 ML NEBU. NEB SCH ×3 (12:37→20:29)
--- NOTE | 2016-07-09 12:56 | PDOC2 ---
CARDIAC CONSULT DATE OF CONSULT Date of Consult DATE: 07/09/16 TIME: 11:58 REASON FOR CONSULT Reason for Consult: elevated NT-proBNP REFERRING PHYSICIAN Referring Physician: Dr. 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 No change in usual activities. Was seen in the ER on 07/04/2016 for gastroenteritis with malaise and dyspnea, treated with IV fluids and discharge home. During this ER visit, NT-pro BNP was obtained and was 3055 raising the concern for CHF. BP readings have been elevated. CXR not consistent with CHF and no history of same. Three troponin levels and EKG not consistent with ACS. Reason for Visit: ? of CHF PAST MEDICAL HISTORY Cardiovascular: HTN (? ) Pulmonary: No pertinent hx CENTRAL NERVOUS SYSTEM: Other (none) GI: No pertinent hx Heme/Onc: No pertinent hx Hepatobiliary: No pertinent hx Psych: No pertinent hx Musculoskeletal: No pain Rheumatologic: No pertinent hx Infectious disease: No pertinent hx ENT: No pertinent hx Renal/: No pertinent hx Endocrine: No pertinent hx Dermatology: No pertinent hx PAST SURGICAL HISTORY Past Surgical History: No pertinent history FAMILY HISTORY Family History: Coronary Artery Disease (father of MT at age 64), Stroke (brother of stroke @ age 64) SOCIAL HISTORY Smoke: 1 pack per day (1.5 ppd X 40 years = 60 pack years) ALCOHOL: none Drugs: None Lives: with Family CURRENT MEDICATIONS CURRENT MEDICATIONS Current Medications Medications (Trade) Dose Ordered Sig/Jase Route PRN Reason Start Time Stop Time Status Last Admin Dose Admin Aspirin (Children'S Aspirin) 324 mg 1X ONCE PO 07/08/16 17:15 07/08/16 17:16 DC 07/08/16 17:37 Acetaminophen/ Hydrocodone Bitart (Lortab 5/325) 2 tab 1X ONCE PO 07/08/16 17:15 07/08/16 17:16 DC 07/08/16 17:37 Azithromycin (Zithromax) 500 mg 1X ONCE PO 07/08/16 19:30 07/08/16 19:32 DC 07/08/16 19:44 Prochlorperazine Edisylate (Compazine) 10 mg PRN Q8HRS PRN IM NAUSEA/VOMITING 07/08/16 23:30 07/09/16 00:59 Famotidine (Pepcid) 20 mg DAILY PO 07/09/16 09:00 07/09/16 09:24 Doxycycline Hyclate 100 mg 100 mg BID PO 07/09/16 09:00 07/09/16 09:24 Sodium Chloride (Iv Sodium Chloride 0.45%) 1,000 ml @ 75 mls/hr [id number] IV 07/09/16 03:45 07/09/16 04:13 Acetaminophen (Tylenol) 650 mg PRN Q6HRS PRN PO MILD PAIN / TEMP 07/09/16 04:00 07/10/16 03:30 07/09/16 04:12 ALLERGIES ALLERGIES: Coded Allergies: No Known Drug Allergies (Unverified , 07/04/16) ROS General: No: Appetite, Chills, Fatigue, Malaise, Night Sweats, Other PSYCHOLOGICAL ROS: No: Anxiety, Behavioral Disorder, Concentration difficultie , Decreased libido, Depression, Disorientation, Hallucinations, Hostility, Irritablity, Memory difficulties, Mood Swings, Obsessive thoughts, Other, Physical abuse, Sexual abuse, Sleep disturbances, Suicidal ideation Eyes: No Blurry vision, No Decreased vision, No Double vision, No Dry eyes, No Excessive tearing, No Eye Pain, No Itchy Eyes, No Loss of vision, No Other, No Photophobia, No Scotomata, No Uses contacts, No Uses glasses HEENT: YES: Other (left neck pain @ work on 07/08/2016) ALLERGY AND IMMUNOLOGY: YES: Nasal Congestion Respiratory: YES: Cough, SOB with excertion, Shortness of breath Cardiovascular: yes Chest Pain (associated with cough), No Edema, No Lt Headedness, No Orthopnea, No Other, No Palpitations, No Paroxysmal Noc. Dyspnea Gastrointestinal: No Abdominal Pain, No Constipation, No Diarrhea, No Hematochezia, No Melena, No Nausea, No Other, No Vomiting Genitourinary: No Discharge, No Dysuria, No Flank Pain, No Frequency, No Hematuria, No Incontinence, No Other, No Pain, No Retention, No Urgency Musculoskeletal: No Gait Disturbance, No Joint Pain, No Joint Stiffness, No Joint Swelling, No Muscle Pain, No Muscular Weakness, No Other, No Pain In:, No Swelling In: Neurological: No Behavorial Changes, No Bowel/Bladder ControlChng, No Confusion , No Dizziness, No Gait Disturbance, No Headaches, No Impaired Coord/balance, No Memory Loss, No Numbness/Tingling, No Other, No Seizures, No Speech Problems , No Tremors, No Visual Changes, No Weakness Skin: Yes Rash (chronic on neck, trunk, UE) PHYSICAL EXAM General: Alert, Oriented X3, Cooperative, mild distress HEENT: Atraumatic, PERRLA Lungs: Other (expiratory wheezing) Heart: Regular rate, Normal S1, Normal S2, Other (mildly tachycardic; systolic murmur LLSB; left carotid bruit) Abdomen: Normal bowel sounds, Soft, No tenderness Extremities: No edema, Normal pulses Skin: Other (rash on neck, trunk and UE) Neuro: Normal speech Psych/Mental Status: Mental status NL, Mood NL MUSCULOSKELETAL: No deformity VITALS VITALS Vital Signs Date Time Temp Pulse Resp B/P Pulse Ox O2 Delivery O2 Flow Rate FiO2 07/09/16 11:00 97.5 97 20 125/57 94 Room Air 97.5 07/08/16 22:30 2.0 LABS Lab: Laboratory Tests Test 07/08/16 17:30 07/08/16 20:30 07/09/16 01:30 07/09/16 07:12 White Blood Count 15.1x10^3/uL (4.0-11.0) 10.1x10^3/uL (4.0-11.0) Red Blood Count 4.39x10^6/uL (3.50-5.40) 4.25x10^6/uL (3.50-5.40) Hemoglobin 12.5g/dL (12.0-15.5) 12.0g/dL (12.0-15.5) Hematocrit 37.5% (36.0-47.0) 36.6% (36.0-47.0) Mean Corpuscular Volume 86fL (79-100) 86fL (79-100) Mean Corpuscular Hemoglobin 29pg (25-35) 28pg (25-35) Mean Corpuscular Hemoglobin Concent 33g/dL (31-37) 33g/dL (31-37) Red Cell Distribution Width 13.6% (11.5-14.5) 13.3% (11.5-14.5) Platelet Count 269x10^3/uL (140-400) 258x10^3/uL (140-400) Neutrophils (%) (Auto) 82% (31-73) 71% (31-73) Lymphocytes (%) (Auto) 11% (24-48) 22% (24-48) Monocytes (%) (Auto) 6% (0-9) 5% (0-9) Eosinophils (%) (Auto) 1% (0-3) 1% (0-3) Basophils (%) (Auto) 0% (0-3) 1% (0-3) Neutrophils # (Auto) 12.3x10^3uL (1.8-7.7) 7.2x10^3uL (1.8-7.7) Lymphocytes # (Auto) 1.7x10^3/uL (1.0-4.8) 2.2x10^3/uL (1.0-4.8) Monocytes # (Auto) 0.9x10^3/uL (0.0-1.1) 0.5x10^3/uL (0.0-1.1) Eosinophils # (Auto) 0.1x10^3/uL (0.0-0.7) 0.1x10^3/uL (0.0-0.7) Basophils # (Auto) 0.0x10^3/uL (0.0-0.2) 0.1x10^3/uL (0.0-0.2) Sodium Level 139mmol/L (136-145) 140mmol/L (136-145) Potassium Level 3.5mmol/L (3.5-5.1) 3.6mmol/L (3.5-5.1) Chloride Level 100mmol/L (98-107) 101mmol/L (98-107) Carbon Dioxide Level 26mmol/L (21-32) 29mmol/L (21-32) Anion Gap 13 (6-14) 10 (6-14) Blood Urea Nitrogen 13mg/dL (7-20) 8mg/dL (7-20) Creatinine 0.5mg/dL (0.6-1.0) 0.4mg/dL (0.6-1.0) Estimated GFR (Cockcroft-Gault) 126.7 163.9 Glucose Level 144mg/dL (70-99) 108mg/dL (70-99) Calcium Level 9.4mg/dL (8.5-10.1) 9.0mg/dL (8.5-10.1) Total Bilirubin 0.3mg/dL (0.2-1.0) Direct Bilirubin 0.1mg/dL (0.0-0.2) Aspartate Amino Transf (AST/SGOT) 5U/L (15-37) Alanine Aminotransferase (ALT/SGPT) 12U/L (14-59) Alkaline Phosphatase 124U/L (46-116) Troponin I Quantitative < 0.017ng/mL (0.000-0.055) < 0.017ng/mL (0.000-0.055) < 0.017ng/mL (0.000-0.055) CW-Jcd-S-Type Natriuretic Peptide 3035pg/mL (0-124) Total Protein 7.5g/dL (6.4-8.2) Albumin 3.7g/dL (3.4-5.0) Lipase 80U/L (73-393) Influenza Type A Antigen Negative (NEGATIVE) Influenza Type B Antigen Negative (NEGATIVE) IMAGES IMAGES CXR: Heart size is within normal limits. There is no gross congestive heart failure. There is slight interstitial prominence which may reflect background chronic fibrotic changes. An interstitial inflammatory process is not entirely excluded. There is a rectangular density over the left mid chest likely reflecting pleural-parenchymal scarring. Significant pleural fluid is not present and there is no pneumothorax. There are scattered punctate areas of demineralization in the left humeral diaphysis. The etiology is unclear. Clinical correlation as to the possibility and/or likelihood of bony disorder advised. EKG EKG no acute changes ECHOCARDIOGRAM ECHOCARDIOGRAM completed with results pending ASSESSMENT/PLAN ASSESSMENT/PLAN 1. elevated NT-proBNP ? etiology - pneumonia vs valvular heart disease (has murmur) no clear evidence of CHF in CXR or on physical exam echo pending 2. pneumonia continues to smoke 1.5 ppd; smoking cessation discussed per primary and pulmonary services 3. murmur echo pending for further evaluation 4. left carotid bruit check CDU check FLP and consider statin usage if LDLs elevated 5. chest pain suspect related to cough/pneumonia, however, multiple risk factors for CVD plan outpatient stress testing 6. HTN 140-159 systolic normalizing continue to monitor have discussed need for pt to obtain PCP 7. tobacco abuse smoking cessation discussed would like to try Chantix Problems: JAIME RANDALL APRN Jul 09, 2016 12:56
--- NOTE | 2016-07-09 14:22 | RAD ---
Indication left carotid bruit. Grayscale color Doppler and spectral analysis was performed. The examination was targeted to the carotid bifurcations. On the right there is some modest plaquing. Color Doppler images do not suggest significant turbulence. The common carotid waveform is normal. Slightly elevated peak systolic velocity is nonspecific. The internal carotid waveform and velocities are within normal limits. The external carotid peak velocity is slightly elevated consistent with mild incidental stenosis in this vessel. The vertebral is patent and demonstrates normal directional flow. On the left there is suggested ulcerative plaque at the carotid bifurcation. The common carotid waveform and velocities are normal. There is modestly elevated peak systolic velocity associated with the left internal carotid compatible with stenosis in the 50-69% range. Stenosis is much more likely to be in the 50-55% range as opposed to the upper 60% range. The external carotid has a significantly elevated peak velocity approaching 350 cm/s compatible with incidental stenosis in this vessel. The left vertebral is patent and demonstrates normal directional flow. IMPRESSION: No evidence of hemodynamically significant stenosis on the right. Suggested ulcerative plaque at the left carotid bifurcation with stenosis in the 50-69% range associated with the internal carotid. Incidental high-grade stenosis noted associated with the left external carotid artery. Note: Stenosis calculations for CT, MR and conventional angiography are based upon determination of the distal ICA diameter in accordance with the NASCET methodology. Stenosis calculations for doppler studies are derived from validated velocity criteria which are known to correlate with NASCET methodology of determining stenosis.
[2016-07-09 15:00] VITALS: BP 128/63
--- NOTE | 2016-07-09 16:24 | PDOC ---
PULMONARY PROGRESS NOTES Vitals Vital Signs Date Time Temp Pulse Resp B/P Pulse Ox O2 Delivery O2 Flow Rate FiO2 07/09/16 16:07 97 Room Air 07/09/16 15:00 97.8 88 19 128/63 97.8 07/08/16 22:30 2.0 Lungs: Other (mostly clear lung lara) Labs Laboratory Tests Test 07/08/16 17:30 07/08/16 20:30 07/09/16 01:30 07/09/16 07:12 White Blood Count 15.1x10^3/uL (4.0-11.0) 10.1x10^3/uL (4.0-11.0) Red Blood Count 4.39x10^6/uL (3.50-5.40) 4.25x10^6/uL (3.50-5.40) Hemoglobin 12.5g/dL (12.0-15.5) 12.0g/dL (12.0-15.5) Hematocrit 37.5% (36.0-47.0) 36.6% (36.0-47.0) Mean Corpuscular Volume 86fL (79-100) 86fL (79-100) Mean Corpuscular Hemoglobin 29pg (25-35) 28pg (25-35) Mean Corpuscular Hemoglobin Concent 33g/dL (31-37) 33g/dL (31-37) Red Cell Distribution Width 13.6% (11.5-14.5) 13.3% (11.5-14.5) Platelet Count 269x10^3/uL (140-400) 258x10^3/uL (140-400) Neutrophils (%) (Auto) 82% (31-73) 71% (31-73) Lymphocytes (%) (Auto) 11% (24-48) 22% (24-48) Monocytes (%) (Auto) 6% (0-9) 5% (0-9) Eosinophils (%) (Auto) 1% (0-3) 1% (0-3) Basophils (%) (Auto) 0% (0-3) 1% (0-3) Neutrophils # (Auto) 12.3x10^3uL (1.8-7.7) 7.2x10^3uL (1.8-7.7) Lymphocytes # (Auto) 1.7x10^3/uL (1.0-4.8) 2.2x10^3/uL (1.0-4.8) Monocytes # (Auto) 0.9x10^3/uL (0.0-1.1) 0.5x10^3/uL (0.0-1.1) Eosinophils # (Auto) 0.1x10^3/uL (0.0-0.7) 0.1x10^3/uL (0.0-0.7) Basophils # (Auto) 0.0x10^3/uL (0.0-0.2) 0.1x10^3/uL (0.0-0.2) Sodium Level 139mmol/L (136-145) 140mmol/L (136-145) Potassium Level 3.5mmol/L (3.5-5.1) 3.6mmol/L (3.5-5.1) Chloride Level 100mmol/L (98-107) 101mmol/L (98-107) Carbon Dioxide Level 26mmol/L (21-32) 29mmol/L (21-32) Anion Gap 13 (6-14) 10 (6-14) Blood Urea Nitrogen 13mg/dL (7-20) 8mg/dL (7-20) Creatinine 0.5mg/dL (0.6-1.0) 0.4mg/dL (0.6-1.0) Estimated GFR (Cockcroft-Gault) 126.7 163.9 Glucose Level 144mg/dL (70-99) 108mg/dL (70-99) Calcium Level 9.4mg/dL (8.5-10.1) 9.0mg/dL (8.5-10.1) Total Bilirubin 0.3mg/dL (0.2-1.0) Direct Bilirubin 0.1mg/dL (0.0-0.2) Aspartate Amino Transf (AST/SGOT) 5U/L (15-37) Alanine Aminotransferase (ALT/SGPT) 12U/L (14-59) Alkaline Phosphatase 124U/L (46-116) Troponin I Quantitative < 0.017ng/mL (0.000-0.055) < 0.017ng/mL (0.000-0.055) < 0.017ng/mL (0.000-0.055) HO-Nza-A-Type Natriuretic Peptide 3035pg/mL (0-124) Total Protein 7.5g/dL (6.4-8.2) Albumin 3.7g/dL (3.4-5.0) Lipase 80U/L (73-393) Influenza Type A Antigen Negative (NEGATIVE) Influenza Type B Antigen Negative (NEGATIVE) Triglycerides Level 122mg/dL (0-150) Cholesterol Level 124mg/dL (0-200) LDL Cholesterol, Calculated 67mg/dL (0-100) VLDL Cholesterol, Calculated 24mg/dL (0-40) HDL Cholesterol 33mg/dL (40-60) Cholesterol/HDL Ratio 3.8 Thyroid Stimulating Hormone (TSH) 1.599uIU/mL (0.358-3.74) Laboratory Tests Test 07/08/16 17:30 07/08/16 20:30 07/09/16 01:30 07/09/16 07:12 White Blood Count 15.1x10^3/uL (4.0-11.0) 10.1x10^3/uL (4.0-11.0) Red Blood Count 4.39x10^6/uL (3.50-5.40) 4.25x10^6/uL (3.50-5.40) Hemoglobin 12.5g/dL (12.0-15.5) 12.0g/dL (12.0-15.5) Hematocrit 37.5% (36.0-47.0) 36.6% (36.0-47.0) Mean Corpuscular Volume 86fL (79-100) 86fL (79-100) Mean Corpuscular Hemoglobin 29pg (25-35) 28pg (25-35) Mean Corpuscular Hemoglobin Concent 33g/dL (31-37) 33g/dL (31-37) Red Cell Distribution Width 13.6% (11.5-14.5) 13.3% (11.5-14.5) Platelet Count 269x10^3/uL (140-400) 258x10^3/uL (140-400) Neutrophils (%) (Auto) 82% (31-73) 71% (31-73) Lymphocytes (%) (Auto) 11% (24-48) 22% (24-48) Monocytes (%) (Auto) 6% (0-9) 5% (0-9) Eosinophils (%) (Auto) 1% (0-3) 1% (0-3) Basophils (%) (Auto) 0% (0-3) 1% (0-3) Neutrophils # (Auto) 12.3x10^3uL (1.8-7.7) 7.2x10^3uL (1.8-7.7) Lymphocytes # (Auto) 1.7x10^3/uL (1.0-4.8) 2.2x10^3/uL (1.0-4.8) Monocytes # (Auto) 0.9x10^3/uL (0.0-1.1) 0.5x10^3/uL (0.0-1.1) Eosinophils # (Auto) 0.1x10^3/uL (0.0-0.7) 0.1x10^3/uL (0.0-0.7) Basophils # (Auto) 0.0x10^3/uL (0.0-0.2) 0.1x10^3/uL (0.0-0.2) Sodium Level 139mmol/L (136-145) 140mmol/L (136-145) Potassium Level 3.5mmol/L (3.5-5.1) 3.6mmol/L (3.5-5.1) Chloride Level 100mmol/L (98-107) 101mmol/L (98-107) Carbon Dioxide Level 26mmol/L (21-32) 29mmol/L (21-32) Anion Gap 13 (6-14) 10 (6-14) Blood Urea Nitrogen 13mg/dL (7-20) 8mg/dL (7-20) Creatinine 0.5mg/dL (0.6-1.0) 0.4mg/dL (0.6-1.0) Estimated GFR (Cockcroft-Gault) 126.7 163.9 Glucose Level 144mg/dL (70-99) 108mg/dL (70-99) Calcium Level 9.4mg/dL (8.5-10.1) 9.0mg/dL (8.5-10.1) Total Bilirubin 0.3mg/dL (0.2-1.0) Direct Bilirubin 0.1mg/dL (0.0-0.2) Aspartate Amino Transf (AST/SGOT) 5U/L (15-37) Alanine Aminotransferase (ALT/SGPT) 12U/L (14-59) Alkaline Phosphatase 124U/L (46-116) Troponin I Quantitative < 0.017ng/mL (0.000-0.055) < 0.017ng/mL (0.000-0.055) < 0.017ng/mL (0.000-0.055) TH-Yft-Z-Type Natriuretic Peptide 3035pg/mL (0-124) Total Protein 7.5g/dL (6.4-8.2) Albumin 3.7g/dL (3.4-5.0) Lipase 80U/L (73-393) Influenza Type A Antigen Negative (NEGATIVE) Influenza Type B Antigen Negative (NEGATIVE) Triglycerides Level 122mg/dL (0-150) Cholesterol Level 124mg/dL (0-200) LDL Cholesterol, Calculated 67mg/dL (0-100) VLDL Cholesterol, Calculated 24mg/dL (0-40) HDL Cholesterol 33mg/dL (40-60) Cholesterol/HDL Ratio 3.8 Thyroid Stimulating Hormone (TSH) 1.599uIU/mL (0.358-3.74) Medications Active Scripts Medications Dose Route/Sig Days Date Category Zofran Odt (Ondansetron) 4 Mg Tab.rapdis 1 Tab SL Q8HRS PRN 07/04/16 Rx Impression . FULL NOTE DICTATED SEE ORDERS CLINICAL PNEUMONIA THANKS FRANCISCO ABARCA MD Jul 09, 2016 16:24
--- NOTE | 2016-07-09 16:27 | CARD ---
APPROVED REPORT EXAM: Two-dimensional and M-mode echocardiogram with Doppler and color Doppler. Other Information HR: 94bpm INDICATION Elevated BNP RISK FACTORS Smoking 2D DIMENSIONS RVDd2.6 (2.9-3.5cm)Left Atrium(2D)3.1 (1.6-4.0cm) IVSd1.0 (0.7-1.1cm)Aortic Root(2D)2.4 (2.0-3.7cm) LVDd6.1 (3.9-5.9cm)LVOT Diameter2.2 (1.8-2.4cm) PWd1.0 (0.7-1.1cm)LVDs4.7 (2.5-4.0cm) FS (%) 24.0 %SV89.2 ml Aortic Valve AoV Peak Cali.212.0cm/sAoV VTI40.3cm AO Peak GR.18.0mmHgLVOT Peak Cali.98.4cm/s AO Mean GR.9mmHgAVA (VMAX)1.72cm2 Mitral Valve MV E Peak Gr.7mmHgMV E Mean Gr.3mmHg Pulmonary Valve PV Peak Liksnlgn724.7cm/s Tricuspid Valve RAP [id number] Pulmonary Vein S1 Jvdsuhcl96.9cm/sD2 Ghffdpes63.6cm/s PVa [id number] LEFT VENTRICLE The left ventricle is normal size. There is normal left ventricular wall thickness. Left ventricle ej ection fraction is mild to moderately impaired. The Ejection Fraction is estimated at 35-40%. There i s mild global hypokinesis of the left ventricle with more significant hypokinesis in the septum. Davies smitral Doppler flow pattern is Grade I-abnormal relaxation pattern. RIGHT VENTRICLE The right ventricle is normal size. There is normal right ventricular wall thickness. The right ventr icular systolic function is normal. ATRIA The left atrium is mildly dilated. The right atrium size is normal. The interatrial septum is intact with no evidence for an atrial septal defect or patent foramen ovale as noted on 2-D or Doppler imagi ng. AORTIC VALVE The aortic valve is moderately sclerotic. Doppler and Color Flow revealed no significant aortic regur gitation. There is mild valvular aortic stenosis. Calculated aortic valve area is 1.7 cm2 with maximu m pressure gradient of 18 mmHg and mean pressure gradient of 9 mmHg. MITRAL VALVE Mitral annular calcification is mild. The mitral valve leaflets are calcified. There is no evidence o f mitral valve prolapse. There is no mitral valve stenosis. Doppler and Color Flow revealed mild mitr al regurgitation. TRICUSPID VALVE The tricuspid valve is normal in structure and function. Doppler and Color Flow revealed trace tricus pid valve regurgitation. There is no tricuspid valve stenosis. PULMONIC VALVE The pulmonary valve is normal in structure and function. Doppler and Color Flow revealed no pulmonic valvular regurgitation. There is no pulmonic valvular stenosis. GREAT VESSELS The aortic root is normal in size. The ascending aorta is normal in size. The pulmonary artery is nor mal. The IVC is normal in size and collapses >50% with inspiration. PERICARDIAL EFFUSION There is no evidence of significant pericardial effusion. Critical Notification Critical Value: No <Conclusion> The left ventricle is normal size. Left ventricle ejection fraction is mild to moderately impaired. The Ejection Fraction is 35-40%. There is mild global hypokinesis of the left ventricle with more significant hypokinesis in the septu m. There is mild valvular aortic stenosis. Calculated aortic valve area is 1.7 cm2 with maximum pressure gradient of 18 mmHg and mean pressure g radient of 9 mmHg. Doppler and Color Flow revealed no significant aortic regurgitation. Doppler and Color Flow revealed mild mitral regurgitation. Doppler and Color Flow revealed trace tricuspid valve regurgitation.
--- NOTE | 2016-07-09 16:50 | CONS ---
DATE OF CONSULTATION: 07/09/2016 ATTENDING PHYSICIAN: Dr. Love REASON FOR CONSULTATION: The patient is seen in Pulmonary consultation at the request of Dr. Love for dyspnea, possible pneumonia. HISTORY OF PRESENT ILLNESS: The patient is a 60-year-old female that presented with shoulder pain. She was seen in the Emergency Room several days ago, was treated for viral infection, given some IV fluids. She presented because of increasing shortness of breath and shoulder pain. She was evaluated. Chest x-ray I personally reviewed. There were no acute changes. She also had labs. BNP was elevated. Troponin level was not elevated. Serology was negative. I was asked to see her in consultation. The patient continues to smoke. Does not utilize MDIs at home. No oxygen supplementation. She has never been treated for acute exacerbation of COPD. PAST MEDICAL HISTORY: No major illnesses. PAST SURGICAL HISTORY: None. FAMILY HISTORY: Father with heart disease. Mother with stroke. SOCIAL HISTORY: She lives with her sister, works at [employer], smokes approximately half a pack of cigarettes a day. ALLERGIES: No known drug allergies. MEDICATIONS: List from home was reviewed. REVIEW OF SYSTEMS: As indicated above, otherwise, a 10-point system was reviewed and negative. PHYSICAL EXAMINATION: VITAL SIGNS: T-max yesterday was 100.2. HEENT: Eyes, the sclerae were nonicteric. NECK: Jugular venous distention was not elevated. No lymphadenopathy. CHEST: Full expansion. LUNGS: Poor airway flow with slight expiratory wheeze. CARDIOVASCULAR: Regular rate and rhythm with S1, S2, no S3. ABDOMEN: Soft, nontender, nondistended. EXTREMITIES: No clubbing, cyanosis or pitting edema. NEUROLOGIC: The patient was awake, alert, following commands. A detailed neuro exam was not performed. LABORATORY DATA: Reviewed. Chest x-ray was normal as indicated above. IMPRESSION: 1. Clinical pneumonia. 2. Fever secondary to above. 3. Elevated BNP, doubt related to acute pulmonary edema. 4. Tobacco dependent. 5. Suspect COPD. PLAN: 1. Continue current support. 2. Rapid influenza screen was negative. We will check PCR. I do appreciate the privilege in sharing in the patient's care. FRANCISCO ABARCA MD DR: AFTAB/soumya JOB#: [id number] / [id number]
[2016-07-09] MEDS ORDERED: PNEUMOC CONJ VACC 23-VALENT 0.5 ML VIAL. VAX IM ONE (18:30)
[2016-07-09] MEDS ORDERED: FLU VACC QUAD 2016-17 (36MOS+)/PF 0.5 ML SYRINGE. VAX IM ONE (18:30)
[2016-07-09 20:24] VITALS: BP 144/63
[2016-07-09 22:24] VITALS: BP 145/64
[2016-07-10 02:27] VITALS: BP 152/68
[2016-07-10 04:56] LABS: BASO % 1 % (0-3); EOS % 1 % (0-3); HEMATOCRIT 37.2 % (36.0-47.0); HEMOGLOBIN 12.4 g/dL (12.0-15.5); LYMPH # 1.8 x10^3/uL (1.0-4.8); LYMPH % 27 % (24-48); MEAN CORPUSCULAR HEMOGLOBIN 29 pg (25-35); MEAN CORPUSCULAR HGB CONC 33 g/dL (31-37); MEAN CORPUSCULAR VOLUME 86 fL (79-100); MONO % 5 % (0-9); NEUT % 66 % (31-73); PLATELET COUNT 266 x10^3/uL (140-400); RED BLOOD COUNT 4.31 x10^6/uL (3.50-5.40); RED CELL DISTRIBUTION WIDTH 13.7 % (11.5-14.5); WHITE BLOOD COUNT 6.8 x10^3/uL (4.0-11.0)
[2016-07-10 05:10] LABS: CALCIUM 9.2 mg/dL (8.5-10.1); CREATININE 0.5 mg/dL (0.6-1.0); GFR 126.7; POTASSIUM 3.3 mmol/L (3.5-5.1)
[2016-07-10 07:12] VITALS: BP 141/51
[2016-07-10] MEDS: IPRATRPIUM/ALBUTEROL 0.5/2.5MG 3 ML NEBU. NEB SCH ×3 (07:18→15:26)
[2016-07-10] MEDS: FAMOTIDINE 20 MG TABLET. PO SCH (10:06)
[2016-07-10] MEDS: DOXYCYCLINE HYCLATE 100 MG TABLET PO SCH ×2 (10:06→21:05)
[2016-07-10 10:12] VITALS: BP 144/74
--- NOTE | 2016-07-10 11:24 | PDOC ---
CARDIO Progress Notes Date and Time Date of Service 07/10/2015 Time of Evaluation 1113 Subjective Subjective: No Palpitations, No Dizziness Vitals Vitals Vital Signs Date Time Temp Pulse Resp B/P Pulse Ox O2 Delivery O2 Flow Rate FiO2 07/10/16 07:19 95 Room Air 07/10/16 07:12 97.7 80 20 141/51 97.7 07/09/16 20:00 2.0 Weight Weight [ ] Input and Output Intake and Output Intake and Output 07/10/16 07:00 Intake Total 3100 ml Output Total 775 ml Balance 2325 ml Intake Oral 2100 ml IV Total 1000 ml Output Urine Total 775 ml # Voids 5 Laboratory Labs Laboratory Tests Test 07/10/16 04:10 White Blood Count 6.8x10^3/uL (4.0-11.0) Red Blood Count 4.31x10^6/uL (3.50-5.40) Hemoglobin 12.4g/dL (12.0-15.5) Hematocrit 37.2% (36.0-47.0) Mean Corpuscular Volume 86fL (79-100) Mean Corpuscular Hemoglobin 29pg (25-35) Mean Corpuscular Hemoglobin Concent 33g/dL (31-37) Red Cell Distribution Width 13.7% (11.5-14.5) Platelet Count 266x10^3/uL (140-400) Neutrophils (%) (Auto) 66% (31-73) Lymphocytes (%) (Auto) 27% (24-48) Monocytes (%) (Auto) 5% (0-9) Eosinophils (%) (Auto) 1% (0-3) Basophils (%) (Auto) 1% (0-3) Neutrophils # (Auto) 4.5x10^3uL (1.8-7.7) Lymphocytes # (Auto) 1.8x10^3/uL (1.0-4.8) Monocytes # (Auto) 0.3x10^3/uL (0.0-1.1) Eosinophils # (Auto) 0.1x10^3/uL (0.0-0.7) Basophils # (Auto) 0.0x10^3/uL (0.0-0.2) Sodium Level 140mmol/L (136-145) Potassium Level 3.3mmol/L (3.5-5.1) Chloride Level 102mmol/L (98-107) Carbon Dioxide Level 30mmol/L (21-32) Anion Gap 8 (6-14) Blood Urea Nitrogen 7mg/dL (7-20) Creatinine 0.5mg/dL (0.6-1.0) Estimated GFR (Cockcroft-Gault) 126.7 Glucose Level 119mg/dL (70-99) Calcium Level 9.2mg/dL (8.5-10.1) Microbiology Micro Microbiology 07/09/16 Blood Culture - Preliminary, Resulted NO GROWTH AFTER 1 DAY Physical Exam HEENT: Neck Supple W Full Motion Chest: Symmetric LUNGS: Other (coarse posteriorly) Heart: S1S2, RRR, murmurs (2/6 LLSB systolic) Abdomen: Soft N/T Extremities: No Edema Neurology: alert, oriented, follow commands Assessment Assessment 1. acute CHF, suspect systolic and diastolic ? etiology - pneumonia vs valvular heart disease (mild ) vs cardiomyopathy no clear evidence of CHF in CXR or on physical exam echo with LVEF 35-40% and mild global hypokinesis meds to control HTN, no clear indication for diuretics at this point 2. pneumonia continues to smoke 1.5 ppd; smoking cessation discussed per primary and pulmonary services 3. mild SUSANNAH = 1.7 cm2 with PG of 18 and MG of 9 mm Hg will require serial echo to evaluate for progression 4. 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 chest pain ? related to cough/pneumonia depressed LV function with mild global hypokinesis will need further evaluation - ? cath vs MPI 6. HTN remains elevated- due to cardiomyopathy - starting BB and ARB (with cough will avoid ACEI) 7. tobacco abuse smoking cessation discussed would like to try Chantix 8. cardiomyopathy, ? ischemic depressed LV function will need further evaluation when she can lie flat start BB and ARB JAIME RANDALL APRN Jul 10, 2016 11:24
[2016-07-10] MEDS: ASPIRIN ENTERIC COATED 81 MG TABLET.DR. PO SCH (12:47)
[2016-07-10] MEDS: CARVEDILOL 3.125 MG TABLET PO SCH ×2 (12:48→17:28)
[2016-07-10] MEDS: LOSARTAN POTASSIUM 25 MG TABLET. PO SCH (12:49)
--- NOTE | 2016-07-10 13:47 | PDOC ---
PROGRESS NOTES Chief Complaint Chief Complaint cough, shortness of breath elevated BNP level History of Present Illness History of Present Illness Patient resting comfortably in bed when evaluated this morning. Visibly doing much better than yesterday. Pt again had a febrile episode last night to 100.4, but is at this time afebrile. Pt reports feeling better and has had less shortness of breath. O2 sat 95% on room air. Pt agreeable to quit smoking, as she has "been without cigarettes for three days anyway." This interviewer recommended that the pt establish care with a PCP, and offered various options. Echo performed during this admission showed EF of 35-40%. Cardiology and pulmonology are in agreement that the elevated BNP was 2/2 to pneumonia, and that any pain the pt may have experienced was non-cardiac in origin. Vitals Vitals Vital Signs Date Time Temp Pulse Resp B/P Pulse Ox O2 Delivery O2 Flow Rate FiO2 07/10/16 12:49 88 144/74 07/10/16 11:24 95 Room Air 07/10/16 10:12 97.7 20 97.7 07/09/16 20:00 2.0 Physical Exam General: Alert, Oriented X3, Cooperative, mild distress Heart: Regular rate, Normal S1, Normal S2, Other (mildly tachycardic; systolic murmur LLSB; left carotid bruit) Lungs: Other (mostly clear lung lara) Abdomen: Normal bowel sounds, Soft, No tenderness Extremities: No edema, Normal pulses Skin: Other (rash on neck, trunk and UE) Labs LABS Laboratory Tests Test 07/10/16 04:10 White Blood Count 6.8x10^3/uL (4.0-11.0) Red Blood Count 4.31x10^6/uL (3.50-5.40) Hemoglobin 12.4g/dL (12.0-15.5) Hematocrit 37.2% (36.0-47.0) Mean Corpuscular Volume 86fL (79-100) Mean Corpuscular Hemoglobin 29pg (25-35) Mean Corpuscular Hemoglobin Concent 33g/dL (31-37) Red Cell Distribution Width 13.7% (11.5-14.5) Platelet Count 266x10^3/uL (140-400) Neutrophils (%) (Auto) 66% (31-73) Lymphocytes (%) (Auto) 27% (24-48) Monocytes (%) (Auto) 5% (0-9) Eosinophils (%) (Auto) 1% (0-3) Basophils (%) (Auto) 1% (0-3) Neutrophils # (Auto) 4.5x10^3uL (1.8-7.7) Lymphocytes # (Auto) 1.8x10^3/uL (1.0-4.8) Monocytes # (Auto) 0.3x10^3/uL (0.0-1.1) Eosinophils # (Auto) 0.1x10^3/uL (0.0-0.7) Basophils # (Auto) 0.0x10^3/uL (0.0-0.2) Sodium Level 140mmol/L (136-145) Potassium Level 3.3mmol/L (3.5-5.1) Chloride Level 102mmol/L (98-107) Carbon Dioxide Level 30mmol/L (21-32) Anion Gap 8 (6-14) Blood Urea Nitrogen 7mg/dL (7-20) Creatinine 0.5mg/dL (0.6-1.0) Estimated GFR (Cockcroft-Gault) 126.7 Glucose Level 119mg/dL (70-99) Calcium Level 9.2mg/dL (8.5-10.1) Review of Systems Review of Systems denies fever, chills, night sweats, chest pain only mildly SOB, improved. Assessment and Plan Assessmemt and Plan ASSESSMENT: - pneumonia - cough, shortness of breath - elevated BNP level PLAN: can discharge if ok by cardiology and pulmonology - home with doxycycline - home with Combivent inhaler - primary and cardiology expressed to pt need to establish outpt care for stress testing, htn management, and management of elevated LDL. - options for PCP discussed - pt has been encouraged to quit smoking, and pt agrees; resources discussed Problems: Comment Review of Relevant I have reviewed the following items norma (where applicable) has been applied. Labs Laboratory Tests Test 07/08/16 17:30 07/08/16 20:30 07/09/16 01:30 07/09/16 07:12 White Blood Count 15.1x10^3/uL (4.0-11.0) 10.1x10^3/uL (4.0-11.0) Red Blood Count 4.39x10^6/uL (3.50-5.40) 4.25x10^6/uL (3.50-5.40) Hemoglobin 12.5g/dL (12.0-15.5) 12.0g/dL (12.0-15.5) Hematocrit 37.5% (36.0-47.0) 36.6% (36.0-47.0) Mean Corpuscular Volume 86fL (79-100) 86fL (79-100) Mean Corpuscular Hemoglobin 29pg (25-35) 28pg (25-35) Mean Corpuscular Hemoglobin Concent 33g/dL (31-37) 33g/dL (31-37) Red Cell Distribution Width 13.6% (11.5-14.5) 13.3% (11.5-14.5) Platelet Count 269x10^3/uL (140-400) 258x10^3/uL (140-400) Neutrophils (%) (Auto) 82% (31-73) 71% (31-73) Lymphocytes (%) (Auto) 11% (24-48) 22% (24-48) Monocytes (%) (Auto) 6% (0-9) 5% (0-9) Eosinophils (%) (Auto) 1% (0-3) 1% (0-3) Basophils (%) (Auto) 0% (0-3) 1% (0-3) Neutrophils # (Auto) 12.3x10^3uL (1.8-7.7) 7.2x10^3uL (1.8-7.7) Lymphocytes # (Auto) 1.7x10^3/uL (1.0-4.8) 2.2x10^3/uL (1.0-4.8) Monocytes # (Auto) 0.9x10^3/uL (0.0-1.1) 0.5x10^3/uL (0.0-1.1) Eosinophils # (Auto) 0.1x10^3/uL (0.0-0.7) 0.1x10^3/uL (0.0-0.7) Basophils # (Auto) 0.0x10^3/uL (0.0-0.2) 0.1x10^3/uL (0.0-0.2) Sodium Level 139mmol/L (136-145) 140mmol/L (136-145) Potassium Level 3.5mmol/L (3.5-5.1) 3.6mmol/L (3.5-5.1) Chloride Level 100mmol/L (98-107) 101mmol/L (98-107) Carbon Dioxide Level 26mmol/L (21-32) 29mmol/L (21-32) Anion Gap 13 (6-14) 10 (6-14) Blood Urea Nitrogen 13mg/dL (7-20) 8mg/dL (7-20) Creatinine 0.5mg/dL (0.6-1.0) 0.4mg/dL (0.6-1.0) Estimated GFR (Cockcroft-Gault) 126.7 163.9 Glucose Level 144mg/dL (70-99) 108mg/dL (70-99) Calcium Level 9.4mg/dL (8.5-10.1) 9.0mg/dL (8.5-10.1) Total Bilirubin 0.3mg/dL (0.2-1.0) Direct Bilirubin 0.1mg/dL (0.0-0.2) Aspartate Amino Transf (AST/SGOT) 5U/L (15-37) Alanine Aminotransferase (ALT/SGPT) 12U/L (14-59) Alkaline Phosphatase 124U/L (46-116) Troponin I Quantitative < 0.017ng/mL (0.000-0.055) < 0.017ng/mL (0.000-0.055) < 0.017ng/mL (0.000-0.055) MB-Hst-W-Type Natriuretic Peptide 3035pg/mL (0-124) Total Protein 7.5g/dL (6.4-8.2) Albumin 3.7g/dL (3.4-5.0) Lipase 80U/L (73-393) Influenza Type A Antigen Negative (NEGATIVE) Influenza Type B Antigen Negative (NEGATIVE) Triglycerides Level 122mg/dL (0-150) Cholesterol Level 124mg/dL (0-200) LDL Cholesterol, Calculated 67mg/dL (0-100) VLDL Cholesterol, Calculated 24mg/dL (0-40) HDL Cholesterol 33mg/dL (40-60) Cholesterol/HDL Ratio 3.8 Thyroid Stimulating Hormone (TSH) 1.599uIU/mL (0.358-3.74) Test 07/10/16 04:10 White Blood Count 6.8x10^3/uL (4.0-11.0) Red Blood Count 4.31x10^6/uL (3.50-5.40) Hemoglobin 12.4g/dL (12.0-15.5) Hematocrit 37.2% (36.0-47.0) Mean Corpuscular Volume 86fL (79-100) Mean Corpuscular Hemoglobin 29pg (25-35) Mean Corpuscular Hemoglobin Concent 33g/dL (31-37) Red Cell Distribution Width 13.7% (11.5-14.5) Platelet Count 266x10^3/uL (140-400) Neutrophils (%) (Auto) 66% (31-73) Lymphocytes (%) (Auto) 27% (24-48) Monocytes (%) (Auto) 5% (0-9) Eosinophils (%) (Auto) 1% (0-3) Basophils (%) (Auto) 1% (0-3) Neutrophils # (Auto) 4.5x10^3uL (1.8-7.7) Lymphocytes # (Auto) 1.8x10^3/uL (1.0-4.8) Monocytes # (Auto) 0.3x10^3/uL (0.0-1.1) Eosinophils # (Auto) 0.1x10^3/uL (0.0-0.7) Basophils # (Auto) 0.0x10^3/uL (0.0-0.2) Sodium Level 140mmol/L (136-145) Potassium Level 3.3mmol/L (3.5-5.1) Chloride Level 102mmol/L (98-107) Carbon Dioxide Level 30mmol/L (21-32) Anion Gap 8 (6-14) Blood Urea Nitrogen 7mg/dL (7-20) Creatinine 0.5mg/dL (0.6-1.0) Estimated GFR (Cockcroft-Gault) 126.7 Glucose Level 119mg/dL (70-99) Calcium Level 9.2mg/dL (8.5-10.1) Laboratory Tests Test 07/10/16 04:10 White Blood Count 6.8x10^3/uL (4.0-11.0) Red Blood Count 4.31x10^6/uL (3.50-5.40) Hemoglobin 12.4g/dL (12.0-15.5) Hematocrit 37.2% (36.0-47.0) Mean Corpuscular Volume 86fL (79-100) Mean Corpuscular Hemoglobin 29pg (25-35) Mean Corpuscular Hemoglobin Concent 33g/dL (31-37) Red Cell Distribution Width 13.7% (11.5-14.5) Platelet Count 266x10^3/uL (140-400) Neutrophils (%) (Auto) 66% (31-73) Lymphocytes (%) (Auto) 27% (24-48) Monocytes (%) (Auto) 5% (0-9) Eosinophils (%) (Auto) 1% (0-3) Basophils (%) (Auto) 1% (0-3) Neutrophils # (Auto) 4.5x10^3uL (1.8-7.7) Lymphocytes # (Auto) 1.8x10^3/uL (1.0-4.8) Monocytes # (Auto) 0.3x10^3/uL (0.0-1.1) Eosinophils # (Auto) 0.1x10^3/uL (0.0-0.7) Basophils # (Auto) 0.0x10^3/uL (0.0-0.2) Sodium Level 140mmol/L (136-145) Potassium Level 3.3mmol/L (3.5-5.1) Chloride Level 102mmol/L (98-107) Carbon Dioxide Level 30mmol/L (21-32) Anion Gap 8 (6-14) Blood Urea Nitrogen 7mg/dL (7-20) Creatinine 0.5mg/dL (0.6-1.0) Estimated GFR (Cockcroft-Gault) 126.7 Glucose Level 119mg/dL (70-99) Calcium Level 9.2mg/dL (8.5-10.1) Microbiology 07/09/16 Blood Culture - Preliminary, Resulted NO GROWTH AFTER 1 DAY Medications Current Medications Aspirin (Children'S Aspirin) 324 mg 1X ONCE PO Last administered on 07/08/16 17:37; Start 07/08/16 at 17:15; Stop 07/08/16 at 17:16; Status DC Nitroglycerin (Nitrostat) 0.4 mg PRN Q5MIN PRN SL CHEST PAIN; Start 07/08/16 at 17:15; Stop 07/08/16 at 17:15; Status DC Morphine Sulfate 2 mg PRN Q1HR PRN IV SEVERE PAIN; Start 07/08/16 at 17:15; Stop 07/08/16 at 17:15; Status DC Acetaminophen/ Hydrocodone Bitart (Lortab 5/325) 2 tab 1X ONCE PO Last administered on 07/08/16 17:37; Start 07/08/16 at 17:15; Stop 07/08/16 at 17:16; Status DC Ondansetron HCl (Zofran) 4 mg PRN Q8HRS PRN IV NAUSEA/VOMITING; Start 07/08/16 at 19:30; Stop 07/09/16 at 19:29; Status DC Morphine Sulfate 2 mg PRN Q2HR PRN IV PAIN; Start 07/08/16 at 19:30; Stop at 23:23; Status DC Azithromycin (Zithromax) 500 mg 1X ONCE PO Last administered on 07/08/16 19:44 ; Start 07/08/16 at 19:30; Stop 07/08/16 at 19:32; Status DC Prochlorperazine Edisylate (Compazine) 10 mg PRN Q8HRS PRN IM NAUSEA/VOMITING Last administered on 07/09/16 00:59; Start 07/08/16 at 23:30 Famotidine (Pepcid) 20 mg DAILY PO Last administered on 07/10/16 10:06; Start 07/09/16 at 09:00 Acetaminophen (Tylenol) 650 mg PRN Q6HRS PRN PO MILD PAIN / TEMP; Start at 03:45; Stop 07/09/16 at 03:50; Status DC Doxycycline Hyclate 100 mg 100 mg BID PO Last administered on 07/10/16 10:06; Start 07/09/16 at 09:00 Sodium Chloride (Iv Sodium Chloride 0.45%) 1,000 ml @ 75 mls/hr [id number] IV Last administered on 07/09/16 04:13; Start 07/09/16 at 03:45; Stop 07/09/16 at 12: 04; Status DC Acetaminophen (Tylenol) 650 mg PRN Q6HRS PRN PO MILD PAIN / TEMP Last administered on 07/09/16 23:25; Start 07/09/16 at 04:00; Stop 07/10/16 at 03:30; Status DC Albuterol/ Ipratropium (Duoneb) 3 ml RTQID NEB Last administered on 07/10/16 11 :24; Start 07/09/16 at 12:30 Pneumococcal Polyvalent Vaccine (Pneumovax 23) 0.5 ml ONCE ONCE VAX IM Last administered on 07/10/16 01:23; Start 07/09/16 at 18:30; Stop 07/09/16 at 18:31; Status DC Influenza Virus Vaccine Quadrival (Fluarix Quad [id number] Syringe) 0.5 ml ONCE ONCE VAX IM Last administered on 07/10/16 01:25; Start 07/09/16 at 18:30; Stop 07/09/16 at 18:31; Status DC Losartan Potassium (Cozaar) 25 mg DAILY PO Last administered on 07/10/16 12:49 ; Start 07/10/16 at 11:00 Carvedilol (Coreg) 3.125 mg BIDWMEALS PO Last administered on 07/10/16 12:48; Start 07/10/16 at 11:25 Aspirin (Ecotrin) 81 mg [id number] PO Last administered on 07/10/16 12:47; Start 07/10/16 at 11:30 Atorvastatin Calcium (Lipitor) 10 mg QHS PO ; Start 07/10/16 at 21:00 Active Scripts Active Zofran Odt (Ondansetron) 4 Mg Tab.rapdis 1 Tab SL Q8HRS PRN Vitals/I & O Vital Sign - Last 24 Hours 07/09/16 07/09/16 07/09/16 07/09/16 15:00 16:07 20:00 20:24 Temp 97.8 98.8 97.8 98.8 Pulse 88 94 Resp 19 20 B/P 128/63 144/63 Pulse Ox 94 97 93 O2 Delivery Room Air Room Air Room Air Room Air O2 Flow Rate 2.0 07/09/16 07/09/16 07/10/16 07/10/16 20:30 22:24 02:27 07:12 Temp 100.4 98.1 97.7 100.4 98.1 97.7 Pulse 101 85 80 Resp 20 20 20 B/P 145/64 152/68 141/51 Pulse Ox 95 96 95 O2 Delivery Room Air Room Air Room Air Room Air 07/10/16 07/10/16 07/10/16 07/10/16 07:19 10:12 11:24 12:48 Temp 97.7 97.7 Pulse 88 88 Resp 20 B/P 144/74 144/74 Pulse Ox 95 94 95 O2 Delivery Room Air Room Air Room Air 07/10/16 12:49 Pulse 88 B/P 144/74 Intake and Output 07/09/16 07/09/16 07/10/16 15:00 23:00 07:00 Intake Total 500 ml 2050 ml 550 ml Output Total 775 ml Balance 500 ml 2050 ml -225 ml JOSELUIS CONTRERAS III DO Jul 10, 2016 13:47
--- NOTE | 2016-07-10 14:08 | PDOC ---
PULMONARY PROGRESS NOTES Subjective PT LESS SOA Vitals Vital Signs Date Time Temp Pulse Resp B/P Pulse Ox O2 Delivery O2 Flow Rate FiO2 07/10/16 12:49 88 144/74 07/10/16 11:24 95 Room Air 07/10/16 10:12 97.7 20 97.7 07/09/16 20:00 2.0 ROS: No Nausea, No Chest Pain, No Abdominal Pain, No Increase Cough Lungs: Wheezing Cardiovascular: S1, S2 Abdomen: Soft Neuro Exam: Alert Extremities: No Edema Skin: Warm Labs Laboratory Tests Test 07/08/16 17:30 07/08/16 20:30 07/09/16 01:30 07/09/16 07:12 White Blood Count 15.1x10^3/uL (4.0-11.0) 10.1x10^3/uL (4.0-11.0) Red Blood Count 4.39x10^6/uL (3.50-5.40) 4.25x10^6/uL (3.50-5.40) Hemoglobin 12.5g/dL (12.0-15.5) 12.0g/dL (12.0-15.5) Hematocrit 37.5% (36.0-47.0) 36.6% (36.0-47.0) Mean Corpuscular Volume 86fL (79-100) 86fL (79-100) Mean Corpuscular Hemoglobin 29pg (25-35) 28pg (25-35) Mean Corpuscular Hemoglobin Concent 33g/dL (31-37) 33g/dL (31-37) Red Cell Distribution Width 13.6% (11.5-14.5) 13.3% (11.5-14.5) Platelet Count 269x10^3/uL (140-400) 258x10^3/uL (140-400) Neutrophils (%) (Auto) 82% (31-73) 71% (31-73) Lymphocytes (%) (Auto) 11% (24-48) 22% (24-48) Monocytes (%) (Auto) 6% (0-9) 5% (0-9) Eosinophils (%) (Auto) 1% (0-3) 1% (0-3) Basophils (%) (Auto) 0% (0-3) 1% (0-3) Neutrophils # (Auto) 12.3x10^3uL (1.8-7.7) 7.2x10^3uL (1.8-7.7) Lymphocytes # (Auto) 1.7x10^3/uL (1.0-4.8) 2.2x10^3/uL (1.0-4.8) Monocytes # (Auto) 0.9x10^3/uL (0.0-1.1) 0.5x10^3/uL (0.0-1.1) Eosinophils # (Auto) 0.1x10^3/uL (0.0-0.7) 0.1x10^3/uL (0.0-0.7) Basophils # (Auto) 0.0x10^3/uL (0.0-0.2) 0.1x10^3/uL (0.0-0.2) Sodium Level 139mmol/L (136-145) 140mmol/L (136-145) Potassium Level 3.5mmol/L (3.5-5.1) 3.6mmol/L (3.5-5.1) Chloride Level 100mmol/L (98-107) 101mmol/L (98-107) Carbon Dioxide Level 26mmol/L (21-32) 29mmol/L (21-32) Anion Gap 13 (6-14) 10 (6-14) Blood Urea Nitrogen 13mg/dL (7-20) 8mg/dL (7-20) Creatinine 0.5mg/dL (0.6-1.0) 0.4mg/dL (0.6-1.0) Estimated GFR (Cockcroft-Gault) 126.7 163.9 Glucose Level 144mg/dL (70-99) 108mg/dL (70-99) Calcium Level 9.4mg/dL (8.5-10.1) 9.0mg/dL (8.5-10.1) Total Bilirubin 0.3mg/dL (0.2-1.0) Direct Bilirubin 0.1mg/dL (0.0-0.2) Aspartate Amino Transf (AST/SGOT) 5U/L (15-37) Alanine Aminotransferase (ALT/SGPT) 12U/L (14-59) Alkaline Phosphatase 124U/L (46-116) Troponin I Quantitative < 0.017ng/mL (0.000-0.055) < 0.017ng/mL (0.000-0.055) < 0.017ng/mL (0.000-0.055) RS-Tov-A-Type Natriuretic Peptide 3035pg/mL (0-124) Total Protein 7.5g/dL (6.4-8.2) Albumin 3.7g/dL (3.4-5.0) Lipase 80U/L (73-393) Influenza Type A Antigen Negative (NEGATIVE) Influenza Type B Antigen Negative (NEGATIVE) Triglycerides Level 122mg/dL (0-150) Cholesterol Level 124mg/dL (0-200) LDL Cholesterol, Calculated 67mg/dL (0-100) VLDL Cholesterol, Calculated 24mg/dL (0-40) HDL Cholesterol 33mg/dL (40-60) Cholesterol/HDL Ratio 3.8 Thyroid Stimulating Hormone (TSH) 1.599uIU/mL (0.358-3.74) Test 07/10/16 04:10 White Blood Count 6.8x10^3/uL (4.0-11.0) Red Blood Count 4.31x10^6/uL (3.50-5.40) Hemoglobin 12.4g/dL (12.0-15.5) Hematocrit 37.2% (36.0-47.0) Mean Corpuscular Volume 86fL (79-100) Mean Corpuscular Hemoglobin 29pg (25-35) Mean Corpuscular Hemoglobin Concent 33g/dL (31-37) Red Cell Distribution Width 13.7% (11.5-14.5) Platelet Count 266x10^3/uL (140-400) Neutrophils (%) (Auto) 66% (31-73) Lymphocytes (%) (Auto) 27% (24-48) Monocytes (%) (Auto) 5% (0-9) Eosinophils (%) (Auto) 1% (0-3) Basophils (%) (Auto) 1% (0-3) Neutrophils # (Auto) 4.5x10^3uL (1.8-7.7) Lymphocytes # (Auto) 1.8x10^3/uL (1.0-4.8) Monocytes # (Auto) 0.3x10^3/uL (0.0-1.1) Eosinophils # (Auto) 0.1x10^3/uL (0.0-0.7) Basophils # (Auto) 0.0x10^3/uL (0.0-0.2) Sodium Level 140mmol/L (136-145) Potassium Level 3.3mmol/L (3.5-5.1) Chloride Level 102mmol/L (98-107) Carbon Dioxide Level 30mmol/L (21-32) Anion Gap 8 (6-14) Blood Urea Nitrogen 7mg/dL (7-20) Creatinine 0.5mg/dL (0.6-1.0) Estimated GFR (Cockcroft-Gault) 126.7 Glucose Level 119mg/dL (70-99) Calcium Level 9.2mg/dL (8.5-10.1) Laboratory Tests Test 07/10/16 04:10 White Blood Count 6.8x10^3/uL (4.0-11.0) Red Blood Count 4.31x10^6/uL (3.50-5.40) Hemoglobin 12.4g/dL (12.0-15.5) Hematocrit 37.2% (36.0-47.0) Mean Corpuscular Volume 86fL (79-100) Mean Corpuscular Hemoglobin 29pg (25-35) Mean Corpuscular Hemoglobin Concent 33g/dL (31-37) Red Cell Distribution Width 13.7% (11.5-14.5) Platelet Count 266x10^3/uL (140-400) Neutrophils (%) (Auto) 66% (31-73) Lymphocytes (%) (Auto) 27% (24-48) Monocytes (%) (Auto) 5% (0-9) Eosinophils (%) (Auto) 1% (0-3) Basophils (%) (Auto) 1% (0-3) Neutrophils # (Auto) 4.5x10^3uL (1.8-7.7) Lymphocytes # (Auto) 1.8x10^3/uL (1.0-4.8) Monocytes # (Auto) 0.3x10^3/uL (0.0-1.1) Eosinophils # (Auto) 0.1x10^3/uL (0.0-0.7) Basophils # (Auto) 0.0x10^3/uL (0.0-0.2) Sodium Level 140mmol/L (136-145) Potassium Level 3.3mmol/L (3.5-5.1) Chloride Level 102mmol/L (98-107) Carbon Dioxide Level 30mmol/L (21-32) Anion Gap 8 (6-14) Blood Urea Nitrogen 7mg/dL (7-20) Creatinine 0.5mg/dL (0.6-1.0) Estimated GFR (Cockcroft-Gault) 126.7 Glucose Level 119mg/dL (70-99) Calcium Level 9.2mg/dL (8.5-10.1) Medications Active Scripts Medications Dose Route/Sig Days Date Category Zofran Odt (Ondansetron) 4 Mg Tab.rapdis 1 Tab SL Q8HRS PRN 07/04/16 Rx Impression . 1. Clinical pneumonia. 2. Fever secondary to above. 3. Elevated BNP, doubt related to acute pulmonary edema. 4. Tobacco dependent. 5. Suspect COPD. Plan . NO MORE FEVER CONTINUE THE SAME FRANCISCO ABARCA MD Jul 10, 2016 14:08
[2016-07-10 15:02] VITALS: BP 142/69
[2016-07-10 19:40] VITALS: BP 133/62
[2016-07-10] MEDS: ATORVASTATIN CALCIUM 10 MG TABLET. PO SCH (21:05)
[2016-07-10 23:09] VITALS: BP 121/54
[2016-07-11 03:40] VITALS: BP 145/67
[2016-07-11 04:40] LABS: BASO # 0.1 x10^3/uL (0.0-0.2); BASO % 1 % (0-3); EOS % 3 % (0-3); HEMATOCRIT 38.1 % (36.0-47.0); HEMOGLOBIN 12.4 g/dL (12.0-15.5); LYMPH % 30 % (24-48); MEAN CORPUSCULAR HEMOGLOBIN 28 pg (25-35); MEAN CORPUSCULAR HGB CONC 33 g/dL (31-37); MEAN CORPUSCULAR VOLUME 86 fL (79-100); MONO % 5 % (0-9); NEUT % 61 % (31-73); PLATELET COUNT 290 x10^3/uL (140-400); RED BLOOD COUNT 4.42 x10^6/uL (3.50-5.40); RED CELL DISTRIBUTION WIDTH 13.5 % (11.5-14.5); WHITE BLOOD COUNT 6.7 x10^3/uL (4.0-11.0)
[2016-07-11 04:53] LABS: CALCIUM 9.4 mg/dL (8.5-10.1); CREATININE 0.5 mg/dL (0.6-1.0); GFR 126.7; POTASSIUM 3.5 mmol/L (3.5-5.1)
[2016-07-11 07:00] VITALS: BP 124/69
[2016-07-11] MEDS: IPRATRPIUM/ALBUTEROL 0.5/2.5MG 3 ML NEBU. NEB SCH ×4 (07:28→19:18)
[2016-07-11] MEDS: ASPIRIN ENTERIC COATED 81 MG TABLET.DR. PO SCH (09:01)
[2016-07-11] MEDS: FAMOTIDINE 20 MG TABLET. PO SCH (09:02)
[2016-07-11] MEDS: DOXYCYCLINE HYCLATE 100 MG TABLET PO SCH ×2 (09:02→20:34)
[2016-07-11] MEDS: LOSARTAN POTASSIUM 25 MG TABLET. PO SCH (09:03)
[2016-07-11] MEDS: CARVEDILOL 3.125 MG TABLET PO SCH ×2 (09:03→18:33)
[2016-07-11 10:20] VITALS: BP 130/69
--- NOTE | 2016-07-11 12:04 | PDOC ---
PULMONARY PROGRESS NOTES Subjective PT LESS SOA Vitals Vital Signs Date Time Temp Pulse Resp B/P Pulse Ox O2 Delivery O2 Flow Rate FiO2 07/11/16 11:35 96 Room Air 07/11/16 10:20 97.5 76 18 130/69 97.5 ROS: No Nausea, No Chest Pain, No Abdominal Pain, No Increase Cough Lungs: Wheezing Cardiovascular: S1, S2 Abdomen: Soft Neuro Exam: Alert Extremities: No Edema Skin: Warm Labs Laboratory Tests Test 07/10/16 04:10 07/11/16 04:25 White Blood Count 6.8x10^3/uL (4.0-11.0) 6.7x10^3/uL (4.0-11.0) Red Blood Count 4.31x10^6/uL (3.50-5.40) 4.42x10^6/uL (3.50-5.40) Hemoglobin 12.4g/dL (12.0-15.5) 12.4g/dL (12.0-15.5) Hematocrit 37.2% (36.0-47.0) 38.1% (36.0-47.0) Mean Corpuscular Volume 86fL (79-100) 86fL (79-100) Mean Corpuscular Hemoglobin 29pg (25-35) 28pg (25-35) Mean Corpuscular Hemoglobin Concent 33g/dL (31-37) 33g/dL (31-37) Red Cell Distribution Width 13.7% (11.5-14.5) 13.5% (11.5-14.5) Platelet Count 266x10^3/uL (140-400) 290x10^3/uL (140-400) Neutrophils (%) (Auto) 66% (31-73) 61% (31-73) Lymphocytes (%) (Auto) 27% (24-48) 30% (24-48) Monocytes (%) (Auto) 5% (0-9) 5% (0-9) Eosinophils (%) (Auto) 1% (0-3) 3% (0-3) Basophils (%) (Auto) 1% (0-3) 1% (0-3) Neutrophils # (Auto) 4.5x10^3uL (1.8-7.7) 4.1x10^3uL (1.8-7.7) Lymphocytes # (Auto) 1.8x10^3/uL (1.0-4.8) 2.0x10^3/uL (1.0-4.8) Monocytes # (Auto) 0.3x10^3/uL (0.0-1.1) 0.3x10^3/uL (0.0-1.1) Eosinophils # (Auto) 0.1x10^3/uL (0.0-0.7) 0.2x10^3/uL (0.0-0.7) Basophils # (Auto) 0.0x10^3/uL (0.0-0.2) 0.1x10^3/uL (0.0-0.2) Sodium Level 140mmol/L (136-145) 141mmol/L (136-145) Potassium Level 3.3mmol/L (3.5-5.1) 3.5mmol/L (3.5-5.1) Chloride Level 102mmol/L (98-107) 102mmol/L (98-107) Carbon Dioxide Level 30mmol/L (21-32) 29mmol/L (21-32) Anion Gap 8 (6-14) 10 (6-14) Blood Urea Nitrogen 7mg/dL (7-20) 9mg/dL (7-20) Creatinine 0.5mg/dL (0.6-1.0) 0.5mg/dL (0.6-1.0) Estimated GFR (Cockcroft-Gault) 126.7 126.7 Glucose Level 119mg/dL (70-99) 118mg/dL (70-99) Calcium Level 9.2mg/dL (8.5-10.1) 9.4mg/dL (8.5-10.1) Laboratory Tests Test 07/11/16 04:25 White Blood Count 6.7x10^3/uL (4.0-11.0) Red Blood Count 4.42x10^6/uL (3.50-5.40) Hemoglobin 12.4g/dL (12.0-15.5) Hematocrit 38.1% (36.0-47.0) Mean Corpuscular Volume 86fL (79-100) Mean Corpuscular Hemoglobin 28pg (25-35) Mean Corpuscular Hemoglobin Concent 33g/dL (31-37) Red Cell Distribution Width 13.5% (11.5-14.5) Platelet Count 290x10^3/uL (140-400) Neutrophils (%) (Auto) 61% (31-73) Lymphocytes (%) (Auto) 30% (24-48) Monocytes (%) (Auto) 5% (0-9) Eosinophils (%) (Auto) 3% (0-3) Basophils (%) (Auto) 1% (0-3) Neutrophils # (Auto) 4.1x10^3uL (1.8-7.7) Lymphocytes # (Auto) 2.0x10^3/uL (1.0-4.8) Monocytes # (Auto) 0.3x10^3/uL (0.0-1.1) Eosinophils # (Auto) 0.2x10^3/uL (0.0-0.7) Basophils # (Auto) 0.1x10^3/uL (0.0-0.2) Sodium Level 141mmol/L (136-145) Potassium Level 3.5mmol/L (3.5-5.1) Chloride Level 102mmol/L (98-107) Carbon Dioxide Level 29mmol/L (21-32) Anion Gap 10 (6-14) Blood Urea Nitrogen 9mg/dL (7-20) Creatinine 0.5mg/dL (0.6-1.0) Estimated GFR (Cockcroft-Gault) 126.7 Glucose Level 118mg/dL (70-99) Calcium Level 9.4mg/dL (8.5-10.1) Medications Active Scripts Medications Dose Route/Sig Days Date Category Zofran Odt (Ondansetron) 4 Mg Tab.rapdis 1 Tab SL Q8HRS PRN 07/04/16 Rx Impression . 1. Clinical pneumonia. 2. Fever secondary to above. 3. Elevated BNP, doubt related to acute pulmonary edema. 4. Tobacco dependent. 5. Suspect COPD. Plan . NO MORE FEVER CARDIAC WORK UP IN PROGRESS RESP STATUS COMPENSATED FRANCISCO ABARCA MD Jul 11, 2016 12:04
[2016-07-11 14:15] VITALS: BP 115/50
--- NOTE | 2016-07-11 14:46 | PDOC ---
Provider Note Provider Note VASCULAR CONSULT, Dictated asymptomatic left RICKY< 50% right leg claudication chronic tobacco abuse REC: smoking cessation. Daily ASA. regular exercise. F/u with me 2 months. yearly Carotid duplex exam ALLAN TERRY MD Jul 11, 2016 14:46
--- NOTE | 2016-07-11 15:27 | PDOC ---
PROGRESS NOTES Chief Complaint Chief Complaint cough, shortness of breath elevated BNP level History of Present Illness History of Present Illness Patient up and ambulating. Reporting feeling well. Certainly looking more lively /energetic. Pt has not had fevers, and improved shortness of breath. O2 sat 95% on room air. Pt agreeable to remain in order to complete cardiac workup, hoping to avoid hospitalization in the future. Discussed case in depth with cardiology who has discussed MPI vs cath for EF 35- 40%. Plan coordinated with nursing as well. Vascular surgery saw patient and offered their recommendations regarding asymptomatic 50% carotid artery stenosis. Vitals Vitals Vital Signs Date Time Temp Pulse Resp B/P Pulse Ox O2 Delivery O2 Flow Rate FiO2 07/11/16 14:15 98.1 82 18 115/50 94 Room Air 98.1 Physical Exam General: Alert, Oriented X3, Cooperative, mild distress Heart: Regular rate, Normal S1, Normal S2, Other (mildly tachycardic; systolic murmur LLSB; left carotid bruit) Lungs: Wheezing Abdomen: Normal bowel sounds, Soft, No tenderness Extremities: No edema, Normal pulses Skin: Other (rash on neck, trunk and UE) Labs LABS Laboratory Tests Test 07/11/16 04:25 White Blood Count 6.7x10^3/uL (4.0-11.0) Red Blood Count 4.42x10^6/uL (3.50-5.40) Hemoglobin 12.4g/dL (12.0-15.5) Hematocrit 38.1% (36.0-47.0) Mean Corpuscular Volume 86fL (79-100) Mean Corpuscular Hemoglobin 28pg (25-35) Mean Corpuscular Hemoglobin Concent 33g/dL (31-37) Red Cell Distribution Width 13.5% (11.5-14.5) Platelet Count 290x10^3/uL (140-400) Neutrophils (%) (Auto) 61% (31-73) Lymphocytes (%) (Auto) 30% (24-48) Monocytes (%) (Auto) 5% (0-9) Eosinophils (%) (Auto) 3% (0-3) Basophils (%) (Auto) 1% (0-3) Neutrophils # (Auto) 4.1x10^3uL (1.8-7.7) Lymphocytes # (Auto) 2.0x10^3/uL (1.0-4.8) Monocytes # (Auto) 0.3x10^3/uL (0.0-1.1) Eosinophils # (Auto) 0.2x10^3/uL (0.0-0.7) Basophils # (Auto) 0.1x10^3/uL (0.0-0.2) Sodium Level 141mmol/L (136-145) Potassium Level 3.5mmol/L (3.5-5.1) Chloride Level 102mmol/L (98-107) Carbon Dioxide Level 29mmol/L (21-32) Anion Gap 10 (6-14) Blood Urea Nitrogen 9mg/dL (7-20) Creatinine 0.5mg/dL (0.6-1.0) Estimated GFR (Cockcroft-Gault) 126.7 Glucose Level 118mg/dL (70-99) Calcium Level 9.4mg/dL (8.5-10.1) Review of Systems Review of Systems denies fever, chills, night sweats, chest pain improved SOB, likely baseline. Assessment and Plan Assessmemt and Plan ASSESSMENT: - pneumonia, resolving - cough, shortness of breath; likely at baseline - elevated BNP level; likely 2/2 to pna PLAN: - appreciate vascular input; determined carotid artery stenosis of <50%; see vascular recs: lifestyle changes, daily ASA, and 2 mo f/u - appreciate cardiology; MPI vs cath possible Tuesday - cont for now then home with doxycycline - cont duoneb then home with Combivent inhaler - reiterated need to establish outpt care for management of htn, elevated LDL, and heart health. - dispo: can discharge when cardiology workup complete Problems: Comment Review of Relevant I have reviewed the following items norma (where applicable) has been applied. Labs Laboratory Tests Test 07/10/16 04:10 07/11/16 04:25 White Blood Count 6.8x10^3/uL (4.0-11.0) 6.7x10^3/uL (4.0-11.0) Red Blood Count 4.31x10^6/uL (3.50-5.40) 4.42x10^6/uL (3.50-5.40) Hemoglobin 12.4g/dL (12.0-15.5) 12.4g/dL (12.0-15.5) Hematocrit 37.2% (36.0-47.0) 38.1% (36.0-47.0) Mean Corpuscular Volume 86fL (79-100) 86fL (79-100) Mean Corpuscular Hemoglobin 29pg (25-35) 28pg (25-35) Mean Corpuscular Hemoglobin Concent 33g/dL (31-37) 33g/dL (31-37) Red Cell Distribution Width 13.7% (11.5-14.5) 13.5% (11.5-14.5) Platelet Count 266x10^3/uL (140-400) 290x10^3/uL (140-400) Neutrophils (%) (Auto) 66% (31-73) 61% (31-73) Lymphocytes (%) (Auto) 27% (24-48) 30% (24-48) Monocytes (%) (Auto) 5% (0-9) 5% (0-9) Eosinophils (%) (Auto) 1% (0-3) 3% (0-3) Basophils (%) (Auto) 1% (0-3) 1% (0-3) Neutrophils # (Auto) 4.5x10^3uL (1.8-7.7) 4.1x10^3uL (1.8-7.7) Lymphocytes # (Auto) 1.8x10^3/uL (1.0-4.8) 2.0x10^3/uL (1.0-4.8) Monocytes # (Auto) 0.3x10^3/uL (0.0-1.1) 0.3x10^3/uL (0.0-1.1) Eosinophils # (Auto) 0.1x10^3/uL (0.0-0.7) 0.2x10^3/uL (0.0-0.7) Basophils # (Auto) 0.0x10^3/uL (0.0-0.2) 0.1x10^3/uL (0.0-0.2) Sodium Level 140mmol/L (136-145) 141mmol/L (136-145) Potassium Level 3.3mmol/L (3.5-5.1) 3.5mmol/L (3.5-5.1) Chloride Level 102mmol/L (98-107) 102mmol/L (98-107) Carbon Dioxide Level 30mmol/L (21-32) 29mmol/L (21-32) Anion Gap 8 (6-14) 10 (6-14) Blood Urea Nitrogen 7mg/dL (7-20) 9mg/dL (7-20) Creatinine 0.5mg/dL (0.6-1.0) 0.5mg/dL (0.6-1.0) Estimated GFR (Cockcroft-Gault) 126.7 126.7 Glucose Level 119mg/dL (70-99) 118mg/dL (70-99) Calcium Level 9.2mg/dL (8.5-10.1) 9.4mg/dL (8.5-10.1) Laboratory Tests Test 07/11/16 04:25 White Blood Count 6.7x10^3/uL (4.0-11.0) Red Blood Count 4.42x10^6/uL (3.50-5.40) Hemoglobin 12.4g/dL (12.0-15.5) Hematocrit 38.1% (36.0-47.0) Mean Corpuscular Volume 86fL (79-100) Mean Corpuscular Hemoglobin 28pg (25-35) Mean Corpuscular Hemoglobin Concent 33g/dL (31-37) Red Cell Distribution Width 13.5% (11.5-14.5) Platelet Count 290x10^3/uL (140-400) Neutrophils (%) (Auto) 61% (31-73) Lymphocytes (%) (Auto) 30% (24-48) Monocytes (%) (Auto) 5% (0-9) Eosinophils (%) (Auto) 3% (0-3) Basophils (%) (Auto) 1% (0-3) Neutrophils # (Auto) 4.1x10^3uL (1.8-7.7) Lymphocytes # (Auto) 2.0x10^3/uL (1.0-4.8) Monocytes # (Auto) 0.3x10^3/uL (0.0-1.1) Eosinophils # (Auto) 0.2x10^3/uL (0.0-0.7) Basophils # (Auto) 0.1x10^3/uL (0.0-0.2) Sodium Level 141mmol/L (136-145) Potassium Level 3.5mmol/L (3.5-5.1) Chloride Level 102mmol/L (98-107) Carbon Dioxide Level 29mmol/L (21-32) Anion Gap 10 (6-14) Blood Urea Nitrogen 9mg/dL (7-20) Creatinine 0.5mg/dL (0.6-1.0) Estimated GFR (Cockcroft-Gault) 126.7 Glucose Level 118mg/dL (70-99) Calcium Level 9.4mg/dL (8.5-10.1) Microbiology 07/09/16 Blood Culture - Preliminary, Resulted NO GROWTH AFTER 2 DAYS Medications Current Medications Aspirin (Children'S Aspirin) 324 mg 1X ONCE PO Last administered on 07/08/16 17:37; Start 07/08/16 at 17:15; Stop 07/08/16 at 17:16; Status DC Nitroglycerin (Nitrostat) 0.4 mg PRN Q5MIN PRN SL CHEST PAIN; Start 07/08/16 at 17:15; Stop 07/08/16 at 17:15; Status DC Morphine Sulfate 2 mg PRN Q1HR PRN IV SEVERE PAIN; Start 07/08/16 at 17:15; Stop 07/08/16 at 17:15; Status DC Acetaminophen/ Hydrocodone Bitart (Lortab 5/325) 2 tab 1X ONCE PO Last administered on 07/08/16 17:37; Start 07/08/16 at 17:15; Stop 07/08/16 at 17:16; Status DC Ondansetron HCl (Zofran) 4 mg PRN Q8HRS PRN IV NAUSEA/VOMITING; Start 07/08/16 at 19:30; Stop 07/09/16 at 19:29; Status DC Morphine Sulfate 2 mg PRN Q2HR PRN IV PAIN; Start 07/08/16 at 19:30; Stop at 23:23; Status DC Azithromycin (Zithromax) 500 mg 1X ONCE PO Last administered on 07/08/16 19:44 ; Start 07/08/16 at 19:30; Stop 07/08/16 at 19:32; Status DC Prochlorperazine Edisylate (Compazine) 10 mg PRN Q8HRS PRN IM NAUSEA/VOMITING Last administered on 07/09/16 00:59; Start 07/08/16 at 23:30 Famotidine (Pepcid) 20 mg DAILY PO Last administered on 07/11/16 09:02; Start 07/09/16 at 09:00 Acetaminophen (Tylenol) 650 mg PRN Q6HRS PRN PO MILD PAIN / TEMP; Start at 03:45; Stop 07/09/16 at 03:50; Status DC Doxycycline Hyclate 100 mg 100 mg BID PO Last administered on 07/11/16 09:02; Start 07/09/16 at 09:00 Sodium Chloride (Iv Sodium Chloride 0.45%) 1,000 ml @ 75 mls/hr [id number] IV Last administered on 07/09/16 04:13; Start 07/09/16 at 03:45; Stop 07/09/16 at 12: 04; Status DC Acetaminophen (Tylenol) 650 mg PRN Q6HRS PRN PO MILD PAIN / TEMP Last administered on 07/09/16 23:25; Start 07/09/16 at 04:00; Stop 07/10/16 at 03:30; Status DC Albuterol/ Ipratropium (Duoneb) 3 ml RTQID NEB Last administered on 07/11/16 11 :29; Start 07/09/16 at 12:30 Pneumococcal Polyvalent Vaccine (Pneumovax 23) 0.5 ml ONCE ONCE VAX IM Last administered on 07/10/16 01:23; Start 07/09/16 at 18:30; Stop 07/09/16 at 18:31; Status DC Influenza Virus Vaccine Quadrival (Fluarix Quad [id number] Syringe) 0.5 ml ONCE ONCE VAX IM Last administered on 07/10/16 01:25; Start 07/09/16 at 18:30; Stop 07/09/16 at 18:31; Status DC Losartan Potassium (Cozaar) 25 mg DAILY PO Last administered on 07/11/16 09:03 ; Start 07/10/16 at 11:00 Carvedilol (Coreg) 3.125 mg BIDWMEALS PO Last administered on 07/11/16 09:03; Start 07/10/16 at 11:25 Aspirin (Ecotrin) 81 mg DAILYWBKFT PO Last administered on 07/11/16 09:01; Start 07/10/16 at 11:30 Atorvastatin Calcium (Lipitor) 10 mg QHS PO Last administered on 07/10/16 21:05 ; Start 07/10/16 at 21:00 Active Scripts Active Zofran Odt (Ondansetron) 4 Mg Tab.rapdis 1 Tab SL Q8HRS PRN Vitals/I & O Vital Sign - Last 24 Hours 07/10/16 07/10/16 07/10/16 07/10/16 17:28 19:05 19:24 19:40 Temp 98.0 98.0 Pulse 80 81 Resp 18 B/P 142/69 133/62 Pulse Ox 95 95 O2 Delivery Room Air Room Air Room Air 07/10/16 07/11/16 07/11/16 07/11/16 23:09 03:40 07:00 07:29 Temp 98.3 97.7 97.9 98.3 97.7 97.9 Pulse 74 81 85 Resp 20 20 18 B/P 121/54 145/67 124/69 Pulse Ox 94 96 96 95 O2 Delivery Room Air Room Air Room Air Room Air 07/11/16 07/11/16 07/11/16 07/11/16 08:05 09:03 09:03 10:20 Temp 97.5 97.5 Pulse 85 85 76 Resp 18 B/P 124/69 124/69 130/69 Pulse Ox 94 O2 Delivery Room Air Room Air 07/11/16 07/11/16 11:35 14:15 Temp 98.1 98.1 Pulse 82 Resp 18 B/P 115/50 Pulse Ox 96 94 O2 Delivery Room Air Room Air Intake and Output 07/10/16 07/10/16 07/11/16 15:00 23:00 07:00 Intake Total 780 ml 1400 ml 320 ml Balance 780 ml 1400 ml 320 ml BENNIAL K III DO Jul 11, 2016 15:27
--- NOTE | 2016-07-11 16:51 | PDOC ---
PROGRESS NOTES Subjective Subjective The patient looks and feels better today. Objective Objective Vital Signs Date Time Temp Pulse Resp B/P Pulse Ox O2 Delivery O2 Flow Rate FiO2 07/11/16 15:27 96 Room Air 07/11/16 14:15 98.1 82 18 115/50 98.1 07/09/16 20:00 2.0 Intake and Output 07/11/16 07:00 Intake Total 2500 ml Balance 2500 ml Intake Oral 2500 ml # Voids 10 # Bowel Movements 1 Physical Exam Abdomen: Normal bowel sounds Heart: Regular rate General: No acute distress Lungs: Other (slightly decreased breath sounds) Assessment Assessment Problems Medical Problems: (1) Cough Status: Acute (2) Elevated brain natriuretic peptide (BNP) level Status: Acute (3) PNA (pneumonia) Status: Acute Assessment 1. acute CHF, suspect systolic and diastolic echo with LVEF 35-40% and mild global hypokinesis meds to control HTN In the setting of her relatively young age and significant LV dysfunction, we discussed various options for further testing. We have agree on a cath for definitive diagnosis of possible CAD. 2. pneumonia continues to smoke 1.5 ppd; smoking cessation discussed per primary and pulmonary services 3. mild SUSANNAH = 1.7 cm2 with PG of 18 and MG of 9 mm Hg will require serial echo to evaluate for progression 4. 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 chest pain ? related to cough/pneumonia depressed LV function with mild global hypokinesis will need further evaluation - ? cath vs MPI 6. HTN remains elevated- due to cardiomyopathy - starting BB and ARB (with cough will avoid ACEI) 7. tobacco abuse smoking cessation discussed 8. cardiomyopathy, ? ischemic depressed LV function cath as above Comment Review of Relevant I have reviewed the following items noram (where applicable) has been applied. Labs Laboratory Tests Test 07/10/16 04:10 07/11/16 04:25 White Blood Count 6.8x10^3/uL (4.0-11.0) 6.7x10^3/uL (4.0-11.0) Red Blood Count 4.31x10^6/uL (3.50-5.40) 4.42x10^6/uL (3.50-5.40) Hemoglobin 12.4g/dL (12.0-15.5) 12.4g/dL (12.0-15.5) Hematocrit 37.2% (36.0-47.0) 38.1% (36.0-47.0) Mean Corpuscular Volume 86fL (79-100) 86fL (79-100) Mean Corpuscular Hemoglobin 29pg (25-35) 28pg (25-35) Mean Corpuscular Hemoglobin Concent 33g/dL (31-37) 33g/dL (31-37) Red Cell Distribution Width 13.7% (11.5-14.5) 13.5% (11.5-14.5) Platelet Count 266x10^3/uL (140-400) 290x10^3/uL (140-400) Neutrophils (%) (Auto) 66% (31-73) 61% (31-73) Lymphocytes (%) (Auto) 27% (24-48) 30% (24-48) Monocytes (%) (Auto) 5% (0-9) 5% (0-9) Eosinophils (%) (Auto) 1% (0-3) 3% (0-3) Basophils (%) (Auto) 1% (0-3) 1% (0-3) Neutrophils # (Auto) 4.5x10^3uL (1.8-7.7) 4.1x10^3uL (1.8-7.7) Lymphocytes # (Auto) 1.8x10^3/uL (1.0-4.8) 2.0x10^3/uL (1.0-4.8) Monocytes # (Auto) 0.3x10^3/uL (0.0-1.1) 0.3x10^3/uL (0.0-1.1) Eosinophils # (Auto) 0.1x10^3/uL (0.0-0.7) 0.2x10^3/uL (0.0-0.7) Basophils # (Auto) 0.0x10^3/uL (0.0-0.2) 0.1x10^3/uL (0.0-0.2) Sodium Level 140mmol/L (136-145) 141mmol/L (136-145) Potassium Level 3.3mmol/L (3.5-5.1) 3.5mmol/L (3.5-5.1) Chloride Level 102mmol/L (98-107) 102mmol/L (98-107) Carbon Dioxide Level 30mmol/L (21-32) 29mmol/L (21-32) Anion Gap 8 (6-14) 10 (6-14) Blood Urea Nitrogen 7mg/dL (7-20) 9mg/dL (7-20) Creatinine 0.5mg/dL (0.6-1.0) 0.5mg/dL (0.6-1.0) Estimated GFR (Cockcroft-Gault) 126.7 126.7 Glucose Level 119mg/dL (70-99) 118mg/dL (70-99) Calcium Level 9.2mg/dL (8.5-10.1) 9.4mg/dL (8.5-10.1) Laboratory Tests Test 07/11/16 04:25 White Blood Count 6.7x10^3/uL (4.0-11.0) Red Blood Count 4.42x10^6/uL (3.50-5.40) Hemoglobin 12.4g/dL (12.0-15.5) Hematocrit 38.1% (36.0-47.0) Mean Corpuscular Volume 86fL (79-100) Mean Corpuscular Hemoglobin 28pg (25-35) Mean Corpuscular Hemoglobin Concent 33g/dL (31-37) Red Cell Distribution Width 13.5% (11.5-14.5) Platelet Count 290x10^3/uL (140-400) Neutrophils (%) (Auto) 61% (31-73) Lymphocytes (%) (Auto) 30% (24-48) Monocytes (%) (Auto) 5% (0-9) Eosinophils (%) (Auto) 3% (0-3) Basophils (%) (Auto) 1% (0-3) Neutrophils # (Auto) 4.1x10^3uL (1.8-7.7) Lymphocytes # (Auto) 2.0x10^3/uL (1.0-4.8) Monocytes # (Auto) 0.3x10^3/uL (0.0-1.1) Eosinophils # (Auto) 0.2x10^3/uL (0.0-0.7) Basophils # (Auto) 0.1x10^3/uL (0.0-0.2) Sodium Level 141mmol/L (136-145) Potassium Level 3.5mmol/L (3.5-5.1) Chloride Level 102mmol/L (98-107) Carbon Dioxide Level 29mmol/L (21-32) Anion Gap 10 (6-14) Blood Urea Nitrogen 9mg/dL (7-20) Creatinine 0.5mg/dL (0.6-1.0) Estimated GFR (Cockcroft-Gault) 126.7 Glucose Level 118mg/dL (70-99) Calcium Level 9.4mg/dL (8.5-10.1) Microbiology 07/09/16 Blood Culture - Preliminary, Resulted NO GROWTH AFTER 2 DAYS Medications Current Medications Aspirin (Children'S Aspirin) 324 mg 1X ONCE PO Last administered on 07/08/16 17:37; Start 07/08/16 at 17:15; Stop 07/08/16 at 17:16; Status DC Nitroglycerin (Nitrostat) 0.4 mg PRN Q5MIN PRN SL CHEST PAIN; Start 07/08/16 at 17:15; Stop 07/08/16 at 17:15; Status DC Morphine Sulfate 2 mg PRN Q1HR PRN IV SEVERE PAIN; Start 07/08/16 at 17:15; Stop 07/08/16 at 17:15; Status DC Acetaminophen/ Hydrocodone Bitart (Lortab 5/325) 2 tab 1X ONCE PO Last administered on 07/08/16 17:37; Start 07/08/16 at 17:15; Stop 07/08/16 at 17:16; Status DC Ondansetron HCl (Zofran) 4 mg PRN Q8HRS PRN IV NAUSEA/VOMITING; Start 07/08/16 at 19:30; Stop 07/09/16 at 19:29; Status DC Morphine Sulfate 2 mg PRN Q2HR PRN IV PAIN; Start 07/08/16 at 19:30; Stop at 23:23; Status DC Azithromycin (Zithromax) 500 mg 1X ONCE PO Last administered on 07/08/16 19:44 ; Start 07/08/16 at 19:30; Stop 07/08/16 at 19:32; Status DC Prochlorperazine Edisylate (Compazine) 10 mg PRN Q8HRS PRN IM NAUSEA/VOMITING Last administered on 07/09/16 00:59; Start 07/08/16 at 23:30 Famotidine (Pepcid) 20 mg DAILY PO Last administered on 07/11/16 09:02; Start 07/09/16 at 09:00 Acetaminophen (Tylenol) 650 mg PRN Q6HRS PRN PO MILD PAIN / TEMP; Start at 03:45; Stop 07/09/16 at 03:50; Status DC Doxycycline Hyclate 100 mg 100 mg BID PO Last administered on 07/11/16 09:02; Start 07/09/16 at 09:00 Sodium Chloride (Iv Sodium Chloride 0.45%) 1,000 ml @ 75 mls/hr [id number] IV Last administered on 07/09/16 04:13; Start 07/09/16 at 03:45; Stop 07/09/16 at 12: 04; Status DC Acetaminophen (Tylenol) 650 mg PRN Q6HRS PRN PO MILD PAIN / TEMP Last administered on 07/09/16 23:25; Start 07/09/16 at 04:00; Stop 07/10/16 at 03:30; Status DC Albuterol/ Ipratropium (Duoneb) 3 ml RTQID NEB Last administered on 07/11/16 15 :26; Start 07/09/16 at 12:30 Pneumococcal Polyvalent Vaccine (Pneumovax 23) 0.5 ml ONCE ONCE VAX IM Last administered on 07/10/16 01:23; Start 07/09/16 at 18:30; Stop 07/09/16 at 18:31; Status DC Influenza Virus Vaccine Quadrival (Fluarix Quad [id number] Syringe) 0.5 ml ONCE ONCE VAX IM Last administered on 07/10/16 01:25; Start 07/09/16 at 18:30; Stop 07/09/16 at 18:31; Status DC Losartan Potassium (Cozaar) 25 mg DAILY PO Last administered on 07/11/16 09:03 ; Start 07/10/16 at 11:00 Carvedilol (Coreg) 3.125 mg BIDWMEALS PO Last administered on 07/11/16 09:03; Start 07/10/16 at 11:25 Aspirin (Ecotrin) 81 mg DAILYWBKFT PO Last administered on 07/11/16 09:01; Start 07/10/16 at 11:30 Atorvastatin Calcium (Lipitor) 10 mg QHS PO Last administered on 07/10/16 21:05 ; Start 07/10/16 at 21:00 Active Scripts Active Zofran Odt (Ondansetron) 4 Mg Tab.rapdis 1 Tab SL Q8HRS PRN Vitals/I & O Vital Sign - Last 24 Hours 07/10/16 07/10/16 07/10/16 07/10/16 17:28 19:05 19:24 19:40 Temp 98.0 98.0 Pulse 80 81 Resp 18 B/P 142/69 133/62 Pulse Ox 95 95 O2 Delivery Room Air Room Air Room Air 07/10/16 07/11/16 07/11/16 07/11/16 23:09 03:40 07:00 07:29 Temp 98.3 97.7 97.9 98.3 97.7 97.9 Pulse 74 81 85 Resp 20 20 18 B/P 121/54 145/67 124/69 Pulse Ox 94 96 96 95 O2 Delivery Room Air Room Air Room Air Room Air 07/11/16 07/11/16 07/11/16 07/11/16 08:05 09:03 09:03 10:20 Temp 97.5 97.5 Pulse 85 85 76 Resp 18 B/P 124/69 124/69 130/69 Pulse Ox 94 O2 Delivery Room Air Room Air 07/11/16 07/11/16 07/11/16 11:35 14:15 15:27 Temp 98.1 98.1 Pulse 82 Resp 18 B/P 115/50 Pulse Ox 96 94 96 O2 Delivery Room Air Room Air Room Air Intake and Output 07/10/16 07/10/16 07/11/16 15:00 23:00 07:00 Intake Total 780 ml 1400 ml 320 ml Balance 780 ml 1400 ml 320 ml BERE JOLLY MD Jul 11, 2016 16:51
[2016-07-11 19:00] VITALS: BP 123/63
[2016-07-11] MEDS ORDERED: MAGNESIUM CITRATE 296 ML SOLUTION. PO ONE (19:30)
[2016-07-11] MEDS: ATORVASTATIN CALCIUM 10 MG TABLET. PO SCH (20:34)
--- NOTE | 2016-07-11 21:27 | OP ---
DATE OF SURGERY: 07/11/2016 REASON FOR CONSULTATION: Left carotid artery stenosis, asymptomatic. HISTORY: This is a 60-year-old female admitted through the Emergency Room with pneumonia. She was noted to have a carotid bruit and carotid duplex examination was performed. Her carotid duplex examination showed a shallow ulcerated plaque in her left carotid artery. The degree of stenosis by velocity is probably less than 50%. Peak systolic velocity in the left internal carotid artery is 137 cm/sec and diastolic velocity is 30 cm/sec. The right carotid bifurcation does not have any flow acceleration at all. The patient has no history of TIAs, amaurosis fugax or stroke. She does complain of some right leg pain with ambulation. Pain is described as involving her hip and thigh. It resolves with rest and it is reproducible. She has no history of underlying heart disease, is not complaining of any chest pain or cardiac rhythm disturbances. She smokes a pack and a half of cigarettes per day or more. She has not smoked since she was admitted to the hospital and that has been 5 days without cigarettes. She is at this time motivated to quit smoking. She has no underlying allergies and she is not on any medication. PHYSICAL EXAMINATION: She has normal carotid upstrokes. No carotid bruits. LUNGS: Breath sounds are distant. CARDIAC: Regular rate and rhythm. ABDOMEN: Soft, no masses, nontender. EXTREMITIES: Pulse examination, she has a barely perceptible right femoral pulse with absent right popliteal and pedal pulses on the left side. She has excellent femoral pulse, palpable popliteal and palpable pedal pulses. Chest x-ray shows a lingular infiltrate. IMPRESSION: Asymptomatic left internal carotid artery stenosis in the less than 50% range. RECOMMENDATIONS: Recommendation is for risk factor modification. Discussed this with the patient. Recommend one daily aspirin. Regular daily exercise program with 30 minutes of walking. Smoking cessation. Blood pressure and lipid control as well. Reviewed these findings with the patient. She is concerned about her right leg pain with physical activity. Now that she knows this is because of her arterial occlusive disease, she is interested in pursuing treatment for this. With that in mind, I have again re-encouraged her for daily exercise program and smoking cessation as well as daily aspirin therapy. I plan to see the patient back in the office in 2 months. We will review her symptoms and findings with the patient and if she wishes to pursue revascularization of her right leg, then we would consider arteriographic evaluation and percutaneous intervention if applicable. ALLAN TERRY MD DR: [email or web address] JOB#: [id number] / [id number]
[2016-07-11 22:56] VITALS: BP 126/64
[2016-07-12] VITALS (11 sets, daily range): BP systolic 116–147; BP diastolic 50–95
[2016-07-12 05:14] LABS: BASO # 0.1 x10^3/uL (0.0-0.2); BASO % 2 % (0-3); EOS % 4 % (0-3); HEMATOCRIT 37.4 % (36.0-47.0); HEMOGLOBIN 12.3 g/dL (12.0-15.5); LYMPH # 2.1 x10^3/uL (1.0-4.8); LYMPH % 31 % (24-48); MEAN CORPUSCULAR HEMOGLOBIN 28 pg (25-35); MEAN CORPUSCULAR HGB CONC 33 g/dL (31-37); MEAN CORPUSCULAR VOLUME 85 fL (79-100); MONO % 3 % (0-9); NEUT % 61 % (31-73); PLATELET COUNT 303 x10^3/uL (140-400); RED BLOOD COUNT 4.38 x10^6/uL (3.50-5.40); RED CELL DISTRIBUTION WIDTH 13.5 % (11.5-14.5); WHITE BLOOD COUNT 6.7 x10^3/uL (4.0-11.0)
[2016-07-12 05:19] LABS: INR 1.3 (0.8-1.1); PROTHROMBIN TIME PATIENT 15.3 SEC (11.7-14.0)
[2016-07-12 05:38] LABS: CALCIUM 9.5 mg/dL (8.5-10.1); CREATININE 0.5 mg/dL (0.6-1.0); GFR 126.7; POTASSIUM 3.6 mmol/L (3.5-5.1)
[2016-07-12] MEDS: IV NORMAL SALINE 1000ML BAG 1,000 ML IV SCH ×2 (07:24→08:30)
[2016-07-12] MEDS: IPRATRPIUM/ALBUTEROL 0.5/2.5MG 3 ML NEBU. NEB SCH ×4 (07:43→20:23)
[2016-07-12] MEDS: ASPIRIN ENTERIC COATED 81 MG TABLET.DR. PO SCH (08:00)
[2016-07-12] MEDS: DOXYCYCLINE HYCLATE 100 MG TABLET PO SCH ×2 (09:00→20:53)
[2016-07-12] MEDS: FAMOTIDINE 20 MG TABLET. PO SCH (09:00)
[2016-07-12] MEDS: LOSARTAN POTASSIUM 25 MG TABLET. PO SCH (09:00)
[2016-07-12] MEDS ORDERED: FUROSEMIDE 20 MG/2 ML VIAL IVP ONE ×2 (10:30→20:30)
--- NOTE | 2016-07-12 10:30 | PDOC ---
PULMONARY PROGRESS NOTES Subjective PT LESS SOA Vitals Vital Signs Date Time Temp Pulse Resp B/P Pulse Ox O2 Delivery O2 Flow Rate FiO2 07/12/16 07:45 93 Room Air 07/12/16 07:00 96.8 87 14 126/56 96.8 ROS: No Nausea, No Chest Pain, No Abdominal Pain, No Increase Cough General: No acute distress Lungs: Clear Cardiovascular: S1, S2 Abdomen: Soft Neuro Exam: Alert Extremities: No Edema Skin: Warm Labs Laboratory Tests Test 07/11/16 04:25 07/12/16 04:30 White Blood Count 6.7x10^3/uL (4.0-11.0) 6.7x10^3/uL (4.0-11.0) Red Blood Count 4.42x10^6/uL (3.50-5.40) 4.38x10^6/uL (3.50-5.40) Hemoglobin 12.4g/dL (12.0-15.5) 12.3g/dL (12.0-15.5) Hematocrit 38.1% (36.0-47.0) 37.4% (36.0-47.0) Mean Corpuscular Volume 86fL (79-100) 85fL (79-100) Mean Corpuscular Hemoglobin 28pg (25-35) 28pg (25-35) Mean Corpuscular Hemoglobin Concent 33g/dL (31-37) 33g/dL (31-37) Red Cell Distribution Width 13.5% (11.5-14.5) 13.5% (11.5-14.5) Platelet Count 290x10^3/uL (140-400) 303x10^3/uL (140-400) Neutrophils (%) (Auto) 61% (31-73) 61% (31-73) Lymphocytes (%) (Auto) 30% (24-48) 31% (24-48) Monocytes (%) (Auto) 5% (0-9) 3% (0-9) Eosinophils (%) (Auto) 3% (0-3) 4% (0-3) Basophils (%) (Auto) 1% (0-3) 2% (0-3) Neutrophils # (Auto) 4.1x10^3uL (1.8-7.7) 4.0x10^3uL (1.8-7.7) Lymphocytes # (Auto) 2.0x10^3/uL (1.0-4.8) 2.1x10^3/uL (1.0-4.8) Monocytes # (Auto) 0.3x10^3/uL (0.0-1.1) 0.2x10^3/uL (0.0-1.1) Eosinophils # (Auto) 0.2x10^3/uL (0.0-0.7) 0.3x10^3/uL (0.0-0.7) Basophils # (Auto) 0.1x10^3/uL (0.0-0.2) 0.1x10^3/uL (0.0-0.2) Sodium Level 141mmol/L (136-145) 141mmol/L (136-145) Potassium Level 3.5mmol/L (3.5-5.1) 3.6mmol/L (3.5-5.1) Chloride Level 102mmol/L (98-107) 101mmol/L (98-107) Carbon Dioxide Level 29mmol/L (21-32) 29mmol/L (21-32) Anion Gap 10 (6-14) 11 (6-14) Blood Urea Nitrogen 9mg/dL (7-20) 11mg/dL (7-20) Creatinine 0.5mg/dL (0.6-1.0) 0.5mg/dL (0.6-1.0) Estimated GFR (Cockcroft-Gault) 126.7 126.7 Glucose Level 118mg/dL (70-99) 105mg/dL (70-99) Calcium Level 9.4mg/dL (8.5-10.1) 9.5mg/dL (8.5-10.1) Prothrombin Time 15.3SEC (11.7-14.0) Prothromb Time International Ratio 1.3 (0.8-1.1) Laboratory Tests Test 07/12/16 04:30 White Blood Count 6.7x10^3/uL (4.0-11.0) Red Blood Count 4.38x10^6/uL (3.50-5.40) Hemoglobin 12.3g/dL (12.0-15.5) Hematocrit 37.4% (36.0-47.0) Mean Corpuscular Volume 85fL (79-100) Mean Corpuscular Hemoglobin 28pg (25-35) Mean Corpuscular Hemoglobin Concent 33g/dL (31-37) Red Cell Distribution Width 13.5% (11.5-14.5) Platelet Count 303x10^3/uL (140-400) Neutrophils (%) (Auto) 61% (31-73) Lymphocytes (%) (Auto) 31% (24-48) Monocytes (%) (Auto) 3% (0-9) Eosinophils (%) (Auto) 4% (0-3) Basophils (%) (Auto) 2% (0-3) Neutrophils # (Auto) 4.0x10^3uL (1.8-7.7) Lymphocytes # (Auto) 2.1x10^3/uL (1.0-4.8) Monocytes # (Auto) 0.2x10^3/uL (0.0-1.1) Eosinophils # (Auto) 0.3x10^3/uL (0.0-0.7) Basophils # (Auto) 0.1x10^3/uL (0.0-0.2) Prothrombin Time 15.3SEC (11.7-14.0) Prothromb Time International Ratio 1.3 (0.8-1.1) Sodium Level 141mmol/L (136-145) Potassium Level 3.6mmol/L (3.5-5.1) Chloride Level 101mmol/L (98-107) Carbon Dioxide Level 29mmol/L (21-32) Anion Gap 11 (6-14) Blood Urea Nitrogen 11mg/dL (7-20) Creatinine 0.5mg/dL (0.6-1.0) Estimated GFR (Cockcroft-Gault) 126.7 Glucose Level 105mg/dL (70-99) Calcium Level 9.5mg/dL (8.5-10.1) Medications Active Scripts Medications Dose Route/Sig Days Date Category Zofran Odt (Ondansetron) 4 Mg Tab.rapdis 1 Tab SL Q8HRS PRN 07/04/16 Rx Impression . 1. Clinical pneumonia. Cannot exclude CHF 2. Fever secondary to above. 3. Elevated BNP, Possible pulmonary edema. EF 35% 4. Tobacco dependent. 5. Suspect COPD. Plan . NO MORE FEVER REPEAT CXR NEBS DOXY CARDIOLOGY REC RESP STATUS COMPENSATED ONDINA RUEDA MD Jul 12, 2016 10:30
--- NOTE | 2016-07-12 12:40 | PDOC ---
PROGRESS NOTES Chief Complaint Chief Complaint 1. Severe cardiomyopathy with low EF, global hypokinesis 2. Acute respi failure 3, PNEumonia in a smoker 4. SIRS POA, infectious, no sepsis 5. Suspect COPD 6. Erythematous, rash, upper trunk, face and UE History of Present Illness History of Present Illness NO CP, soa at times Multiple non pruritic red rash over trunk, neck, UE None on the legs and lower abdomen- has had it for yrs PLanned ofr cardiac cath today Vitals Vitals Vital Signs Date Time Temp Pulse Resp B/P Pulse Ox O2 Delivery O2 Flow Rate FiO2 07/12/16 11:31 Room Air 07/12/16 11:00 97.0 87 14 133/59 90 97.0 Physical Exam General: Alert, Oriented X3, Cooperative, No acute distress, Other ( erythematous, red rash non pruritic, no open lesions on face, neck, upper trunk and uE) Heart: Regular rate Lungs: Clear Abdomen: Normal bowel sounds Extremities: No clubbing, No cyanosis, No edema, Normal pulses Skin: No rashes, No breakdown, Other (rash on neck, trunk and UE) Labs LABS Laboratory Tests Test 07/12/16 04:30 White Blood Count 6.7x10^3/uL (4.0-11.0) Red Blood Count 4.38x10^6/uL (3.50-5.40) Hemoglobin 12.3g/dL (12.0-15.5) Hematocrit 37.4% (36.0-47.0) Mean Corpuscular Volume 85fL (79-100) Mean Corpuscular Hemoglobin 28pg (25-35) Mean Corpuscular Hemoglobin Concent 33g/dL (31-37) Red Cell Distribution Width 13.5% (11.5-14.5) Platelet Count 303x10^3/uL (140-400) Neutrophils (%) (Auto) 61% (31-73) Lymphocytes (%) (Auto) 31% (24-48) Monocytes (%) (Auto) 3% (0-9) Eosinophils (%) (Auto) 4% (0-3) Basophils (%) (Auto) 2% (0-3) Neutrophils # (Auto) 4.0x10^3uL (1.8-7.7) Lymphocytes # (Auto) 2.1x10^3/uL (1.0-4.8) Monocytes # (Auto) 0.2x10^3/uL (0.0-1.1) Eosinophils # (Auto) 0.3x10^3/uL (0.0-0.7) Basophils # (Auto) 0.1x10^3/uL (0.0-0.2) Prothrombin Time 15.3SEC (11.7-14.0) Prothromb Time International Ratio 1.3 (0.8-1.1) Sodium Level 141mmol/L (136-145) Potassium Level 3.6mmol/L (3.5-5.1) Chloride Level 101mmol/L (98-107) Carbon Dioxide Level 29mmol/L (21-32) Anion Gap 11 (6-14) Blood Urea Nitrogen 11mg/dL (7-20) Creatinine 0.5mg/dL (0.6-1.0) Estimated GFR (Cockcroft-Gault) 126.7 Glucose Level 105mg/dL (70-99) Calcium Level 9.5mg/dL (8.5-10.1) Assessment and Plan Assessmemt and Plan Can consult morales re the red rash CArdiac cath later Supproitve meds Nicotine patch Duonebs prn Problems Medical Problems: (1) Cough Status: Acute (2) Elevated brain natriuretic peptide (BNP) level Status: Acute (3) PNA (pneumonia) Status: Acute Problems: Comment Review of Relevant I have reviewed the following items norma (where applicable) has been applied. Labs Laboratory Tests Test 07/11/16 04:25 07/12/16 04:30 White Blood Count 6.7x10^3/uL (4.0-11.0) 6.7x10^3/uL (4.0-11.0) Red Blood Count 4.42x10^6/uL (3.50-5.40) 4.38x10^6/uL (3.50-5.40) Hemoglobin 12.4g/dL (12.0-15.5) 12.3g/dL (12.0-15.5) Hematocrit 38.1% (36.0-47.0) 37.4% (36.0-47.0) Mean Corpuscular Volume 86fL (79-100) 85fL (79-100) Mean Corpuscular Hemoglobin 28pg (25-35) 28pg (25-35) Mean Corpuscular Hemoglobin Concent 33g/dL (31-37) 33g/dL (31-37) Red Cell Distribution Width 13.5% (11.5-14.5) 13.5% (11.5-14.5) Platelet Count 290x10^3/uL (140-400) 303x10^3/uL (140-400) Neutrophils (%) (Auto) 61% (31-73) 61% (31-73) Lymphocytes (%) (Auto) 30% (24-48) 31% (24-48) Monocytes (%) (Auto) 5% (0-9) 3% (0-9) Eosinophils (%) (Auto) 3% (0-3) 4% (0-3) Basophils (%) (Auto) 1% (0-3) 2% (0-3) Neutrophils # (Auto) 4.1x10^3uL (1.8-7.7) 4.0x10^3uL (1.8-7.7) Lymphocytes # (Auto) 2.0x10^3/uL (1.0-4.8) 2.1x10^3/uL (1.0-4.8) Monocytes # (Auto) 0.3x10^3/uL (0.0-1.1) 0.2x10^3/uL (0.0-1.1) Eosinophils # (Auto) 0.2x10^3/uL (0.0-0.7) 0.3x10^3/uL (0.0-0.7) Basophils # (Auto) 0.1x10^3/uL (0.0-0.2) 0.1x10^3/uL (0.0-0.2) Sodium Level 141mmol/L (136-145) 141mmol/L (136-145) Potassium Level 3.5mmol/L (3.5-5.1) 3.6mmol/L (3.5-5.1) Chloride Level 102mmol/L (98-107) 101mmol/L (98-107) Carbon Dioxide Level 29mmol/L (21-32) 29mmol/L (21-32) Anion Gap 10 (6-14) 11 (6-14) Blood Urea Nitrogen 9mg/dL (7-20) 11mg/dL (7-20) Creatinine 0.5mg/dL (0.6-1.0) 0.5mg/dL (0.6-1.0) Estimated GFR (Cockcroft-Gault) 126.7 126.7 Glucose Level 118mg/dL (70-99) 105mg/dL (70-99) Calcium Level 9.4mg/dL (8.5-10.1) 9.5mg/dL (8.5-10.1) Prothrombin Time 15.3SEC (11.7-14.0) Prothromb Time International Ratio 1.3 (0.8-1.1) Laboratory Tests Test 07/12/16 04:30 White Blood Count 6.7x10^3/uL (4.0-11.0) Red Blood Count 4.38x10^6/uL (3.50-5.40) Hemoglobin 12.3g/dL (12.0-15.5) Hematocrit 37.4% (36.0-47.0) Mean Corpuscular Volume 85fL (79-100) Mean Corpuscular Hemoglobin 28pg (25-35) Mean Corpuscular Hemoglobin Concent 33g/dL (31-37) Red Cell Distribution Width 13.5% (11.5-14.5) Platelet Count 303x10^3/uL (140-400) Neutrophils (%) (Auto) 61% (31-73) Lymphocytes (%) (Auto) 31% (24-48) Monocytes (%) (Auto) 3% (0-9) Eosinophils (%) (Auto) 4% (0-3) Basophils (%) (Auto) 2% (0-3) Neutrophils # (Auto) 4.0x10^3uL (1.8-7.7) Lymphocytes # (Auto) 2.1x10^3/uL (1.0-4.8) Monocytes # (Auto) 0.2x10^3/uL (0.0-1.1) Eosinophils # (Auto) 0.3x10^3/uL (0.0-0.7) Basophils # (Auto) 0.1x10^3/uL (0.0-0.2) Prothrombin Time 15.3SEC (11.7-14.0) Prothromb Time International Ratio 1.3 (0.8-1.1) Sodium Level 141mmol/L (136-145) Potassium Level 3.6mmol/L (3.5-5.1) Chloride Level 101mmol/L (98-107) Carbon Dioxide Level 29mmol/L (21-32) Anion Gap 11 (6-14) Blood Urea Nitrogen 11mg/dL (7-20) Creatinine 0.5mg/dL (0.6-1.0) Estimated GFR (Cockcroft-Gault) 126.7 Glucose Level 105mg/dL (70-99) Calcium Level 9.5mg/dL (8.5-10.1) Microbiology 07/09/16 Blood Culture - Preliminary, Resulted NO GROWTH AFTER 3 DAYS Medications Current Medications Aspirin (Children'S Aspirin) 324 mg 1X ONCE PO Last administered on 07/08/16 17:37; Start 07/08/16 at 17:15; Stop 07/08/16 at 17:16; Status DC Nitroglycerin (Nitrostat) 0.4 mg PRN Q5MIN PRN SL CHEST PAIN; Start 07/08/16 at 17:15; Stop 07/08/16 at 17:15; Status DC Morphine Sulfate 2 mg PRN Q1HR PRN IV SEVERE PAIN; Start 07/08/16 at 17:15; Stop 07/08/16 at 17:15; Status DC Acetaminophen/ Hydrocodone Bitart (Lortab 5/325) 2 tab 1X ONCE PO Last administered on 07/08/16 17:37; Start 07/08/16 at 17:15; Stop 07/08/16 at 17:16; Status DC Ondansetron HCl (Zofran) 4 mg PRN Q8HRS PRN IV NAUSEA/VOMITING; Start 07/08/16 at 19:30; Stop 07/09/16 at 19:29; Status DC Morphine Sulfate 2 mg PRN Q2HR PRN IV PAIN; Start 07/08/16 at 19:30; Stop at 23:23; Status DC Azithromycin (Zithromax) 500 mg 1X ONCE PO Last administered on 07/08/16 19:44 ; Start 07/08/16 at 19:30; Stop 07/08/16 at 19:32; Status DC Prochlorperazine Edisylate (Compazine) 10 mg PRN Q8HRS PRN IM NAUSEA/VOMITING Last administered on 07/09/16 00:59; Start 07/08/16 at 23:30 Famotidine (Pepcid) 20 mg DAILY PO Last administered on 07/11/16 09:02; Start 07/09/16 at 09:00 Acetaminophen (Tylenol) 650 mg PRN Q6HRS PRN PO MILD PAIN / TEMP; Start at 03:45; Stop 07/09/16 at 03:50; Status DC Doxycycline Hyclate 100 mg 100 mg BID PO Last administered on 07/11/16 20:34; Start 07/09/16 at 09:00 Sodium Chloride (Iv Sodium Chloride 0.45%) 1,000 ml @ 75 mls/hr [id number] IV Last administered on 07/09/16 04:13; Start 07/09/16 at 03:45; Stop 07/09/16 at 12: 04; Status DC Acetaminophen (Tylenol) 650 mg PRN Q6HRS PRN PO MILD PAIN / TEMP Last administered on 07/09/16 23:25; Start 07/09/16 at 04:00; Stop 07/10/16 at 03:30; Status DC Albuterol/ Ipratropium (Duoneb) 3 ml RTQID NEB Last administered on 07/12/16 11 :30; Start 07/09/16 at 12:30 Pneumococcal Polyvalent Vaccine (Pneumovax 23) 0.5 ml ONCE ONCE VAX IM Last administered on 07/10/16 01:23; Start 07/09/16 at 18:30; Stop 07/09/16 at 18:31; Status DC Influenza Virus Vaccine Quadrival (Fluarix Quad [id number] Syringe) 0.5 ml ONCE ONCE VAX IM Last administered on 07/10/16 01:25; Start 07/09/16 at 18:30; Stop 07/09/16 at 18:31; Status DC Losartan Potassium (Cozaar) 25 mg DAILY PO Last administered on 07/11/16 09:03 ; Start 07/10/16 at 11:00 Carvedilol (Coreg) 3.125 mg BIDWMEALS PO Last administered on 07/11/16 18:33; Start 07/10/16 at 11:25 Aspirin (Ecotrin) 81 mg [id number] PO Last administered on 07/11/16 09:01; Start 07/10/16 at 11:30 Atorvastatin Calcium 10 mg 10 mg QHS PO Last administered on 07/11/16 20:34; Start 07/10/16 at 21:00 Sodium Chloride (Iv Sodium Chloride 0.9% 1000ml Bag) 1,000 ml @ 60 mls/hr [id number] IV ; Start 07/12/16 at 07:30 Magnesium Citrate (Citroma) 296 ml 1X ONCE PO ; Start 07/11/16 at 19:30; Stop at 19:31; Status Cancel Furosemide (Lasix) 20 mg 1X ONCE IVP ; Start 07/12/16 at 10:30; Stop 07/12/16 at 10:32; Status DC Active Scripts Active Zofran Odt (Ondansetron) 4 Mg Tab.rapdis 1 Tab SL Q8HRS PRN Vitals/I & O Vital Sign - Last 24 Hours 07/11/16 07/11/16 07/11/16 07/11/16 14:15 15:27 18:33 19:00 Temp 98.1 97.9 98.1 97.9 Pulse 82 87 93 Resp 18 18 B/P 115/50 146/66 123/63 Pulse Ox 94 96 96 O2 Delivery Room Air Room Air Room Air 07/11/16 07/11/16 07/11/16 07/12/16 19:10 19:19 22:56 07:00 Temp 96.7 96.8 96.7 96.8 Pulse 87 87 Resp 18 14 B/P 126/64 126/56 Pulse Ox 100 100 93 O2 Delivery Room Air Room Air Room Air Room Air 07/12/16 07/12/16 07/12/16 07:45 11:00 11:31 Temp 97.0 97.0 Pulse 87 Resp 14 B/P 133/59 Pulse Ox 93 90 O2 Delivery Room Air Room Air Room Air Intake and Output 07/11/16 07/11/16 07/12/16 15:00 23:00 07:00 Intake Total 960 ml 360 ml 610 ml Balance 960 ml 360 ml 610 ml RUBY FORREST MD Jul 12, 2016 12:40
[2016-07-12] MEDS ORDERED: IOHEXOL 300 MG/ML 100ML VIAL. ONE ×2 (13:38→14:56)
[2016-07-12] MEDS ORDERED: LIDOCAINE 2% 20 ML VIAL. ONE (13:39)
[2016-07-12] MEDS ORDERED: MIDAZOLAM HCL 2 MG/2 ML VIAL. ONE ×2 (14:05→14:46)
[2016-07-12] MEDS ORDERED: FENTANYL PF 100 MCG/2 ML VIAL. ONE (14:05)
--- NOTE | 2016-07-12 14:22 | PDOC ---
MODERATE SEDATION ASSESSMENT RISKS/ALTERNATIVES Risks/Alternatives Risks and alternatives of this type of sedation and procedure discussed with: RISK/ALTERNATIVES: Patient H & P ON CHART H & P H & P on chart and reviewed for co-morbid conditions and appropriate labs. H&P ON CHART: Yes STATUS PREG STATUS ASSESSED: Yes MEDS/ALLERGIES REVIEWED Meds/Allergies Reviewed Medications and Allergies including time and route of recently administered narcotics and sedatives. MEDS/ALLERGIES REVIEWED: Yes ASA RATING ASA RATING: II AIRWAY ASSESSMENT Airway Assessment Airway patency, oral function limitations, presence of caps, crowns, dentures, partials, and ability to extend neck assessed. AIRWAY ASSESSMENT: Yes MALLAMPATI SCORE MALLAMPATI SCORE: II PRE-SEDATION ASSESSMENT PRE-SEDATION ASSESSMENT: Yes BERE JOLLY MD Jul 12, 2016 14:22
[2016-07-12] MEDS ORDERED: MIDAZOLAM HCL 2 MG/2 ML VIAL. IV ONE (14:30)
[2016-07-12] MEDS ORDERED: IOHEXOL 300 MG/ML 100ML VIAL. IART ONE (14:30)
[2016-07-12] MEDS ORDERED: FENTANYL PF 100 MCG/2 ML VIAL. IV ONE (14:30)
[2016-07-12] MEDS ORDERED: LIDOCAINE 2% 20 ML VIAL. IJ ONE (14:30)
[2016-07-12] MEDS: CARVEDILOL 3.125 MG TABLET PO SCH ×2 (17:00→18:26)
--- NOTE | 2016-07-12 17:00 | PDOC4 ---
Operative Note Operative Note Brief cath note. Left main. No lesions. LAD. mid 15% lesion. LCX. No lesions RCA. mid 20% lesion. Abd. aortic injection. Chronic occlusion of right iliac vessel. Mild CAD. Continue medical treatment. Severe PVD. Future revasc. Would monitor overnight. Probably home tomorrow. Discussed with the patient. Full report to follow. BERE JOLLY MD Jul 12, 2016 17:00
[2016-07-12] MEDS ORDERED: IV NORMAL SALINE 1000ML BAG 1,000 ML IV SCH (17:08)
[2016-07-12] MEDS ORDERED: NITROGLYCERIN SUBLINGUAL 0.4 MG BOTTLE OF 25. SL PRN (17:15)
[2016-07-12] MEDS ORDERED: 0.9 % SODIUM CHLORIDE 10 ML DISP.SYRIN. IV PRN (17:15)
--- NOTE | 2016-07-12 17:17 | PDOC ---
SUBJECTIVE Subjective patient has had vascular lesion affecting upper chest both upper arms and anterior neck over 10 years. Other than cosmetic appearance it doesn't really bother her. OBJECTIVE Vital Signs Vital Signs Date Time Temp Pulse Resp B/P Pulse Ox O2 Delivery O2 Flow Rate FiO2 07/12/16 16:45 79 12 128/61 96 07/12/16 15:57 Room Air 07/12/16 15:08 77 16 93 07/12/16 14:30 16 100 Nasal Cannula 2.0 07/12/16 11:31 Room Air 07/12/16 11:00 97.0 87 14 133/59 90 Room Air 97.0 07/12/16 07:45 93 Room Air 07/12/16 07:00 96.8 87 14 126/56 93 Room Air 96.8 07/11/16 22:56 96.7 87 18 126/64 100 Room Air 96.7 07/11/16 19:19 100 Room Air 07/11/16 19:10 Room Air 07/11/16 19:00 97.9 93 18 123/63 96 Room Air 97.9 07/11/16 18:33 87 146/66 I & O Intake and Output 07/12/16 07:00 Intake Total 1930 ml Balance 1930 ml Intake Oral 1930 ml # Voids 8 # Bowel Movements 1 PHYSICAL EXAM Physical Exam Vascular (hemangioma/port wine stain) lesions affecting entire upper chest, upper arms and anterior neck. 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 Interesting but probably not of medical significance. Doesn't bother the patient except for appearance. Laser would be extensive/arduoud/expensive. Doubt if part of syndrome with internal vascular malformations. Patient would be welcome to attend the [place] [employer] Monthly Meeting if she wanted the opinion of our group. Problems: COMMENT Lab Laboratory Tests Test 07/12/16 04:30 White Blood Count 6.7x10^3/uL (4.0-11.0) Red Blood Count 4.38x10^6/uL (3.50-5.40) Hemoglobin 12.3g/dL (12.0-15.5) Hematocrit 37.4% (36.0-47.0) Mean Corpuscular Volume 85fL (79-100) Mean Corpuscular Hemoglobin 28pg (25-35) Mean Corpuscular Hemoglobin Concent 33g/dL (31-37) Red Cell Distribution Width 13.5% (11.5-14.5) Platelet Count 303x10^3/uL (140-400) Neutrophils (%) (Auto) 61% (31-73) Lymphocytes (%) (Auto) 31% (24-48) Monocytes (%) (Auto) 3% (0-9) Eosinophils (%) (Auto) 4% (0-3) Basophils (%) (Auto) 2% (0-3) Neutrophils # (Auto) 4.0x10^3uL (1.8-7.7) Lymphocytes # (Auto) 2.1x10^3/uL (1.0-4.8) Monocytes # (Auto) 0.2x10^3/uL (0.0-1.1) Eosinophils # (Auto) 0.3x10^3/uL (0.0-0.7) Basophils # (Auto) 0.1x10^3/uL (0.0-0.2) Prothrombin Time 15.3SEC (11.7-14.0) Prothromb Time International Ratio 1.3 (0.8-1.1) Sodium Level 141mmol/L (136-145) Potassium Level 3.6mmol/L (3.5-5.1) Chloride Level 101mmol/L (98-107) Carbon Dioxide Level 29mmol/L (21-32) Anion Gap 11 (6-14) Blood Urea Nitrogen 11mg/dL (7-20) Creatinine 0.5mg/dL (0.6-1.0) Estimated GFR (Cockcroft-Gault) 126.7 Glucose Level 105mg/dL (70-99) Calcium Level 9.5mg/dL (8.5-10.1) BRITTANIE DIOP MD Jul 12, 2016 17:17
[2016-07-12] MEDS: ATORVASTATIN CALCIUM 10 MG TABLET. PO SCH (20:53)
[2016-07-13 07:00] VITALS: BP 134/60
[2016-07-13] MEDS: IPRATRPIUM/ALBUTEROL 0.5/2.5MG 3 ML NEBU. NEB SCH ×3 (07:37→16:00)
[2016-07-13] MEDS: ASPIRIN ENTERIC COATED 81 MG TABLET.DR. PO SCH (07:48)
[2016-07-13] MEDS: FAMOTIDINE 20 MG TABLET. PO SCH (07:48)
[2016-07-13] MEDS: DOXYCYCLINE HYCLATE 100 MG TABLET PO SCH (07:48)
[2016-07-13] MEDS: LOSARTAN POTASSIUM 25 MG TABLET. PO SCH (07:53)
[2016-07-13] MEDS: CARVEDILOL 3.125 MG TABLET PO SCH (07:53)
[2016-07-13 08:09] LABS: BASO % 0 % (0-3); EOS % 3 % (0-3); HEMATOCRIT 37.3 % (36.0-47.0); HEMOGLOBIN 12.3 g/dL (12.0-15.5); LYMPH % 28 % (24-48); MEAN CORPUSCULAR HEMOGLOBIN 28 pg (25-35); MEAN CORPUSCULAR HGB CONC 33 g/dL (31-37); MEAN CORPUSCULAR VOLUME 86 fL (79-100); MONO % 5 % (0-9); NEUT % 64 % (31-73); PLATELET COUNT 308 x10^3/uL (140-400); RED BLOOD COUNT 4.34 x10^6/uL (3.50-5.40); RED CELL DISTRIBUTION WIDTH 13.4 % (11.5-14.5); WHITE BLOOD COUNT 7.3 x10^3/uL (4.0-11.0)
[2016-07-13 08:19] LABS: CALCIUM 9.4 mg/dL (8.5-10.1); CREATININE 0.5 mg/dL (0.6-1.0); GFR 126.7; POTASSIUM 3.9 mmol/L (3.5-5.1)
--- NOTE | 2016-07-13 08:23 | RAD ---
EXAM: Chest, single view. HISTORY: CHF. COMPARISON: 07/08/2016. FINDINGS: A frontal view of the chest is obtained. There is stable diffuse interstitial prominence. There is stable left infrahilar opacity. There is no effusion or pneumothorax. The heart is normal in size. IMPRESSION: 1. Stable diffuse interstitial prominence. 2. Stable left infrahilar opacity likely due to infiltrate or pleural-parenchymal scarring.
[2016-07-13 11:19] VITALS: BP 130/59
--- NOTE | 2016-07-13 12:07 | PDOC ---
OBJECTIVE Vital Signs Vital Signs Date Time Temp Pulse Resp B/P Pulse Ox O2 Delivery O2 Flow Rate FiO2 07/13/16 12:04 Room Air 07/13/16 11:19 97.9 79 14 130/59 96 Room Air 97.9 07/13/16 08:00 Room Air 07/13/16 07:53 78 134/60 07/13/16 07:53 78 134/60 07/13/16 07:38 93 Room Air 07/13/16 07:00 95.9 78 16 134/60 93 Room Air 95.9 07/12/16 23:00 98.4 94 132/66 96 Room Air 98.4 07/12/16 20:24 3 Room Air 07/12/16 19:30 98.2 80 136/50 92 Room Air 98.2 07/12/16 19:00 Room Air 07/12/16 18:30 90 147/64 93 Room Air 07/12/16 18:26 83 145/60 07/12/16 18:00 87 128/64 93 Room Air 07/12/16 17:30 78 142/61 95 Room Air 07/12/16 17:15 93 137/70 92 Room Air 07/12/16 17:00 92 116/95 93 Room Air 07/12/16 16:45 79 12 128/61 96 07/12/16 15:57 Room Air 07/12/16 15:08 77 16 93 07/12/16 14:30 16 100 Nasal Cannula 2.0 I & O Intake and Output 07/13/16 07:00 Intake Total 460 ml Output Total 100 ml Balance 360 ml Intake Oral 460 ml Output Urine Total 100 ml # Voids 6 ASSESSMENT/PLAN Assessment/Plan 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 Biopsy may be helpful (can be done as outpatient if she desires) Problems: COMMENT Lab Laboratory Tests Test 07/13/16 07:30 White Blood Count 7.3x10^3/uL (4.0-11.0) Red Blood Count 4.34x10^6/uL (3.50-5.40) Hemoglobin 12.3g/dL (12.0-15.5) Hematocrit 37.3% (36.0-47.0) Mean Corpuscular Volume 86fL (79-100) Mean Corpuscular Hemoglobin 28pg (25-35) Mean Corpuscular Hemoglobin Concent 33g/dL (31-37) Red Cell Distribution Width 13.4% (11.5-14.5) Platelet Count 308x10^3/uL (140-400) Neutrophils (%) (Auto) 64% (31-73) Lymphocytes (%) (Auto) 28% (24-48) Monocytes (%) (Auto) 5% (0-9) Eosinophils (%) (Auto) 3% (0-3) Basophils (%) (Auto) 0% (0-3) Neutrophils # (Auto) 4.7x10^3uL (1.8-7.7) Lymphocytes # (Auto) 2.0x10^3/uL (1.0-4.8) Monocytes # (Auto) 0.4x10^3/uL (0.0-1.1) Eosinophils # (Auto) 0.2x10^3/uL (0.0-0.7) Basophils # (Auto) 0.0x10^3/uL (0.0-0.2) Sodium Level 139mmol/L (136-145) Potassium Level 3.9mmol/L (3.5-5.1) Chloride Level 100mmol/L (98-107) Carbon Dioxide Level 30mmol/L (21-32) Anion Gap 9 (6-14) Blood Urea Nitrogen 11mg/dL (7-20) Creatinine 0.5mg/dL (0.6-1.0) Estimated GFR (Cockcroft-Gault) 126.7 Glucose Level 105mg/dL (70-99) Calcium Level 9.4mg/dL (8.5-10.1) Magnesium Level 1.8mg/dL (1.8-2.4) BRITTANIE DIOP MD Jul 13, 2016 12:07
--- NOTE | 2016-07-13 12:18 | PDOC ---
CARDIO Progress Notes Date and Time Date of Service 07/13/2016 Time of Evaluation 1145 Subjective Subjective: No Chest Pain, No shortness of breath, No Palpitations, No Dizziness Vitals Vitals Vital Signs Date Time Temp Pulse Resp B/P Pulse Ox O2 Delivery O2 Flow Rate FiO2 07/13/16 11:19 97.9 79 14 130/59 96 Room Air 97.9 07/12/16 14:30 2.0 Weight Weight [ ] Input and Output Intake and Output Intake and Output 07/13/16 07:00 Intake Total 460 ml Output Total 100 ml Balance 360 ml Intake Oral 460 ml Output Urine Total 100 ml # Voids 6 Laboratory Labs Laboratory Tests Test 07/13/16 07:30 White Blood Count 7.3x10^3/uL (4.0-11.0) Red Blood Count 4.34x10^6/uL (3.50-5.40) Hemoglobin 12.3g/dL (12.0-15.5) Hematocrit 37.3% (36.0-47.0) Mean Corpuscular Volume 86fL (79-100) Mean Corpuscular Hemoglobin 28pg (25-35) Mean Corpuscular Hemoglobin Concent 33g/dL (31-37) Red Cell Distribution Width 13.4% (11.5-14.5) Platelet Count 308x10^3/uL (140-400) Neutrophils (%) (Auto) 64% (31-73) Lymphocytes (%) (Auto) 28% (24-48) Monocytes (%) (Auto) 5% (0-9) Eosinophils (%) (Auto) 3% (0-3) Basophils (%) (Auto) 0% (0-3) Neutrophils # (Auto) 4.7x10^3uL (1.8-7.7) Lymphocytes # (Auto) 2.0x10^3/uL (1.0-4.8) Monocytes # (Auto) 0.4x10^3/uL (0.0-1.1) Eosinophils # (Auto) 0.2x10^3/uL (0.0-0.7) Basophils # (Auto) 0.0x10^3/uL (0.0-0.2) Sodium Level 139mmol/L (136-145) Potassium Level 3.9mmol/L (3.5-5.1) Chloride Level 100mmol/L (98-107) Carbon Dioxide Level 30mmol/L (21-32) Anion Gap 9 (6-14) Blood Urea Nitrogen 11mg/dL (7-20) Creatinine 0.5mg/dL (0.6-1.0) Estimated GFR (Cockcroft-Gault) 126.7 Glucose Level 105mg/dL (70-99) Calcium Level 9.4mg/dL (8.5-10.1) Magnesium Level 1.8mg/dL (1.8-2.4) Microbiology Micro Microbiology 07/09/16 Blood Culture - Preliminary, Resulted NO GROWTH AFTER 4 DAYS Physical Exam HEENT: Neck Supple W Full Motion Chest: Symmetric LUNGS: Other (bibasilar crackles) Heart: S1S2, RRR (no significant ectopies overnight), murmurs (2/6 LLSB systolic) Abdomen: Soft N/T Extremities: No Edema Neurology: alert, oriented, follow commands Other Exams left groin arteriotomy site intact with mild bruising, no swelling, erythema and neurovascular status to bilateral LE intact. Assessment Assessment 1. Acute CHF with combined systolic/diastolic dysfunction echo with LVEF 35-40% and mild global hypokinesis Clinically compensated. Maintain BP control and lifestyle modification. Daily weight, 2000 FR and gradual exercise regimen. Start on low dose lasix 20 mg po with KCL supplementation. OK to DC per cardiac standpoint, follow up in office in 2 weeks. 2. NICM Differentials include infection, HTN Continue with optimization Will repeat TTE in 3 months as an outpt. 3. Nonobstructive mild CAD S/P LHC-Mid LAD 15% and 20 % mid RCA lesions Continue with secondary prevention Dietitian and cardiac rehab consult Coreg/losartan/lipitor. 4. Severe LE PAD Noted via angiogram. Chronic occlusion of right iliac vessel. Future revascularization, follow up in 2 weeks. Smoking cessation. Encourage cardiac rehab. Continue with ASA 5. pneumonia Likely the cause of her CP. continues to smoke 1.5 ppd; smoking cessation discussed per primary and pulmonary services 6. mild SUSANNAH = 1.7 cm2 with PG of 18 and MG of 9 mm Hg will require serial echo to evaluate for progression 7. left ICA disease ulcerative plaque @ the bifurcation on left - 50-69% with high grade ECA stenosis - needs referral for outpt vascular surgery evaluation no hemodynamically significant stenosis on ELIZABETH Recommendation as above. 8. HTN Controlled. Continue with current regimen 9. Undiagnosed COPD? Per PCP ANGEL LUIS YEN [employer] Jul 13, 2016 12:18
[2016-07-13] MEDS ORDERED: POTASSIUM CHLORIDE 10 MEQ TABLET.ER. PO SCH (13:00)
[2016-07-13] MEDS ORDERED: FUROSEMIDE 20 MG TABLET PO SCH (13:00)
--- NOTE | 2016-07-13 13:12 | PDOC3 ---
Discharge Summary Visit Information Date of Admission: Jul 08, 2016 Date of Discharge: Jul 13, 2016 Admitting Diagnosis Comment: 1. Severe cardiomyopathy with low EF, global hypokinesis 2. Acute respi failure 3, PNEumonia in a smoker 4. SIRS POA, infectious, no sepsis 5. Suspect COPD 6. Erythematous, rash, upper trunk, face and UE Final Diagnosis Problems Medical Problems: (1) Cardiomyopathy, unspecified Status: Acute (2) Cough Status: Acute (3) Elevated brain natriuretic peptide (BNP) level Status: Acute (4) PNA (pneumonia) Status: Acute Brief Hospital Course Allergies Allergies Coded Allergies Type Severity Reaction Last Updated Verified No Known Drug Allergies 07/04/16 No Vital Signs Vital Signs Date Time Temp Pulse Resp B/P Pulse Ox O2 Delivery O2 Flow Rate FiO2 07/13/16 12:04 Room Air 07/13/16 11:19 97.9 79 14 130/59 96 97.9 07/12/16 14:30 2.0 Lab Results Laboratory Tests Test 07/12/16 04:30 07/13/16 07:30 White Blood Count 6.7x10^3/uL (4.0-11.0) 7.3x10^3/uL (4.0-11.0) Red Blood Count 4.38x10^6/uL (3.50-5.40) 4.34x10^6/uL (3.50-5.40) Hemoglobin 12.3g/dL (12.0-15.5) 12.3g/dL (12.0-15.5) Hematocrit 37.4% (36.0-47.0) 37.3% (36.0-47.0) Mean Corpuscular Volume 85fL (79-100) 86fL (79-100) Mean Corpuscular Hemoglobin 28pg (25-35) 28pg (25-35) Mean Corpuscular Hemoglobin Concent 33g/dL (31-37) 33g/dL (31-37) Red Cell Distribution Width 13.5% (11.5-14.5) 13.4% (11.5-14.5) Platelet Count 303x10^3/uL (140-400) 308x10^3/uL (140-400) Neutrophils (%) (Auto) 61% (31-73) 64% (31-73) Lymphocytes (%) (Auto) 31% (24-48) 28% (24-48) Monocytes (%) (Auto) 3% (0-9) 5% (0-9) Eosinophils (%) (Auto) 4% (0-3) 3% (0-3) Basophils (%) (Auto) 2% (0-3) 0% (0-3) Neutrophils # (Auto) 4.0x10^3uL (1.8-7.7) 4.7x10^3uL (1.8-7.7) Lymphocytes # (Auto) 2.1x10^3/uL (1.0-4.8) 2.0x10^3/uL (1.0-4.8) Monocytes # (Auto) 0.2x10^3/uL (0.0-1.1) 0.4x10^3/uL (0.0-1.1) Eosinophils # (Auto) 0.3x10^3/uL (0.0-0.7) 0.2x10^3/uL (0.0-0.7) Basophils # (Auto) 0.1x10^3/uL (0.0-0.2) 0.0x10^3/uL (0.0-0.2) Prothrombin Time 15.3SEC (11.7-14.0) Prothromb Time International Ratio 1.3 (0.8-1.1) Sodium Level 141mmol/L (136-145) 139mmol/L (136-145) Potassium Level 3.6mmol/L (3.5-5.1) 3.9mmol/L (3.5-5.1) Chloride Level 101mmol/L (98-107) 100mmol/L (98-107) Carbon Dioxide Level 29mmol/L (21-32) 30mmol/L (21-32) Anion Gap 11 (6-14) 9 (6-14) Blood Urea Nitrogen 11mg/dL (7-20) 11mg/dL (7-20) Creatinine 0.5mg/dL (0.6-1.0) 0.5mg/dL (0.6-1.0) Estimated GFR (Cockcroft-Gault) 126.7 126.7 Glucose Level 105mg/dL (70-99) 105mg/dL (70-99) Calcium Level 9.5mg/dL (8.5-10.1) 9.4mg/dL (8.5-10.1) Magnesium Level 1.8mg/dL (1.8-2.4) Laboratory Tests Test 07/13/16 07:30 White Blood Count 7.3x10^3/uL (4.0-11.0) Red Blood Count 4.34x10^6/uL (3.50-5.40) Hemoglobin 12.3g/dL (12.0-15.5) Hematocrit 37.3% (36.0-47.0) Mean Corpuscular Volume 86fL (79-100) Mean Corpuscular Hemoglobin 28pg (25-35) Mean Corpuscular Hemoglobin Concent 33g/dL (31-37) Red Cell Distribution Width 13.4% (11.5-14.5) Platelet Count 308x10^3/uL (140-400) Neutrophils (%) (Auto) 64% (31-73) Lymphocytes (%) (Auto) 28% (24-48) Monocytes (%) (Auto) 5% (0-9) Eosinophils (%) (Auto) 3% (0-3) Basophils (%) (Auto) 0% (0-3) Neutrophils # (Auto) 4.7x10^3uL (1.8-7.7) Lymphocytes # (Auto) 2.0x10^3/uL (1.0-4.8) Monocytes # (Auto) 0.4x10^3/uL (0.0-1.1) Eosinophils # (Auto) 0.2x10^3/uL (0.0-0.7) Basophils # (Auto) 0.0x10^3/uL (0.0-0.2) Sodium Level 139mmol/L (136-145) Potassium Level 3.9mmol/L (3.5-5.1) Chloride Level 100mmol/L (98-107) Carbon Dioxide Level 30mmol/L (21-32) Anion Gap 9 (6-14) Blood Urea Nitrogen 11mg/dL (7-20) Creatinine 0.5mg/dL (0.6-1.0) Estimated GFR (Cockcroft-Gault) 126.7 Glucose Level 105mg/dL (70-99) Calcium Level 9.4mg/dL (8.5-10.1) Magnesium Level 1.8mg/dL (1.8-2.4) Brief Hospital Course Ms. Chau is a 60 old female coming in with respi sxs and CP. On echo found to have severe CM ef 35%, cath was clean, NEeds to start cardiac meds and ff up cards for rpt echo interval and see if EF improves otherwise AICD in talks in the future Started on doxy for respi issues Pt seen and examined. PE: WNL Consults: cards Proc cardiac cath Dc time 32 mins numerous cardiac RX written, educated and counselled Discharge Information Condition at Discharge: Improved, Stable (cards as instructed) Follow Up: Weeks Disposition/Orders: D/C to Home Scheduled PRN Ondansetron (Zofran Odt) 1 TAB SL Q8HRS PRN PRN NAUSEA RUBY FORREST MD Jul 13, 2016 13:12
--- NOTE | 2016-07-13 14:20 | PDOC ---
PULMONARY PROGRESS NOTES Subjective PT LESS SOA Vitals Vital Signs Date Time Temp Pulse Resp B/P Pulse Ox O2 Delivery O2 Flow Rate FiO2 07/13/16 12:04 Room Air 07/13/16 11:19 97.9 79 14 130/59 96 97.9 07/12/16 14:30 2.0 ROS: No Nausea, No Chest Pain, No Abdominal Pain, No Increase Cough General: No acute distress Lungs: Clear Cardiovascular: S1, S2 Abdomen: Soft Neuro Exam: Alert Extremities: No Edema Skin: Warm Labs Laboratory Tests Test 07/12/16 04:30 07/13/16 07:30 White Blood Count 6.7x10^3/uL (4.0-11.0) 7.3x10^3/uL (4.0-11.0) Red Blood Count 4.38x10^6/uL (3.50-5.40) 4.34x10^6/uL (3.50-5.40) Hemoglobin 12.3g/dL (12.0-15.5) 12.3g/dL (12.0-15.5) Hematocrit 37.4% (36.0-47.0) 37.3% (36.0-47.0) Mean Corpuscular Volume 85fL (79-100) 86fL (79-100) Mean Corpuscular Hemoglobin 28pg (25-35) 28pg (25-35) Mean Corpuscular Hemoglobin Concent 33g/dL (31-37) 33g/dL (31-37) Red Cell Distribution Width 13.5% (11.5-14.5) 13.4% (11.5-14.5) Platelet Count 303x10^3/uL (140-400) 308x10^3/uL (140-400) Neutrophils (%) (Auto) 61% (31-73) 64% (31-73) Lymphocytes (%) (Auto) 31% (24-48) 28% (24-48) Monocytes (%) (Auto) 3% (0-9) 5% (0-9) Eosinophils (%) (Auto) 4% (0-3) 3% (0-3) Basophils (%) (Auto) 2% (0-3) 0% (0-3) Neutrophils # (Auto) 4.0x10^3uL (1.8-7.7) 4.7x10^3uL (1.8-7.7) Lymphocytes # (Auto) 2.1x10^3/uL (1.0-4.8) 2.0x10^3/uL (1.0-4.8) Monocytes # (Auto) 0.2x10^3/uL (0.0-1.1) 0.4x10^3/uL (0.0-1.1) Eosinophils # (Auto) 0.3x10^3/uL (0.0-0.7) 0.2x10^3/uL (0.0-0.7) Basophils # (Auto) 0.1x10^3/uL (0.0-0.2) 0.0x10^3/uL (0.0-0.2) Prothrombin Time 15.3SEC (11.7-14.0) Prothromb Time International Ratio 1.3 (0.8-1.1) Sodium Level 141mmol/L (136-145) 139mmol/L (136-145) Potassium Level 3.6mmol/L (3.5-5.1) 3.9mmol/L (3.5-5.1) Chloride Level 101mmol/L (98-107) 100mmol/L (98-107) Carbon Dioxide Level 29mmol/L (21-32) 30mmol/L (21-32) Anion Gap 11 (6-14) 9 (6-14) Blood Urea Nitrogen 11mg/dL (7-20) 11mg/dL (7-20) Creatinine 0.5mg/dL (0.6-1.0) 0.5mg/dL (0.6-1.0) Estimated GFR (Cockcroft-Gault) 126.7 126.7 Glucose Level 105mg/dL (70-99) 105mg/dL (70-99) Calcium Level 9.5mg/dL (8.5-10.1) 9.4mg/dL (8.5-10.1) Magnesium Level 1.8mg/dL (1.8-2.4) Laboratory Tests Test 07/13/16 07:30 White Blood Count 7.3x10^3/uL (4.0-11.0) Red Blood Count 4.34x10^6/uL (3.50-5.40) Hemoglobin 12.3g/dL (12.0-15.5) Hematocrit 37.3% (36.0-47.0) Mean Corpuscular Volume 86fL (79-100) Mean Corpuscular Hemoglobin 28pg (25-35) Mean Corpuscular Hemoglobin Concent 33g/dL (31-37) Red Cell Distribution Width 13.4% (11.5-14.5) Platelet Count 308x10^3/uL (140-400) Neutrophils (%) (Auto) 64% (31-73) Lymphocytes (%) (Auto) 28% (24-48) Monocytes (%) (Auto) 5% (0-9) Eosinophils (%) (Auto) 3% (0-3) Basophils (%) (Auto) 0% (0-3) Neutrophils # (Auto) 4.7x10^3uL (1.8-7.7) Lymphocytes # (Auto) 2.0x10^3/uL (1.0-4.8) Monocytes # (Auto) 0.4x10^3/uL (0.0-1.1) Eosinophils # (Auto) 0.2x10^3/uL (0.0-0.7) Basophils # (Auto) 0.0x10^3/uL (0.0-0.2) Sodium Level 139mmol/L (136-145) Potassium Level 3.9mmol/L (3.5-5.1) Chloride Level 100mmol/L (98-107) Carbon Dioxide Level 30mmol/L (21-32) Anion Gap 9 (6-14) Blood Urea Nitrogen 11mg/dL (7-20) Creatinine 0.5mg/dL (0.6-1.0) Estimated GFR (Cockcroft-Gault) 126.7 Glucose Level 105mg/dL (70-99) Calcium Level 9.4mg/dL (8.5-10.1) Magnesium Level 1.8mg/dL (1.8-2.4) Medications Active Scripts Medications Dose Route/Sig Days Date Category Zofran Odt (Ondansetron) 4 Mg Tab.rapdis 1 Tab SL Q8HRS PRN 07/04/16 Rx Impression . 1. Clinical pneumonia. Cannot exclude CHF 2. Fever secondary to above. 3. Elevated BNP, Possible pulmonary edema. EF 35% 4. Tobacco dependent. 5. Suspect COPD. Plan . NO MORE FEVER REPEAT CXR with mild CHF/ stable NEBS DOXY CARDIOLOGY REC RESP STATUS COMPENSATED/ OK WITH DC ONDINA RUEDA MD Jul 13, 2016 14:20
[2016-07-13 15:58] VITALS: BP 129/63
[2016-07-13 21:10] LABS: INFLUENZA A BY PCR Negative (Negative); INFLUENZA B BY PCR Negative (Negative); SUBTYPING PCR Not Indicated (.)
[2016-07-14] MEDS ORDERED: POTASSIUM CHLORIDE 10 MEQ TABLET.ER. PO SCH (08:00)
[2016-07-14] MEDS ORDERED: FUROSEMIDE 20 MG TABLET PO SCH (09:00)
--- NOTE | 2016-07-14 14:50 | CARD ---
APPROVED REPORT Procedures Left heart catheterization. Left ventriculogram. Selective coronary angiogram. Aortic root injection. Distal abdominal aorta with runoff. The patient is a pleasant 60-year-old female with a history of progressive chest pain and claudicatio n. The patient had decreased left ventricular function on an ECHO. Cardiac catheterization was recomm ended to evaluate probable CAD. Risks and benefits were discussed. The patient gave consent to procee d. After informed consent was obtained the patient was brought to the catheterization lab. There was a p oor pulse in the right femoral region and therefore the left femoral artery was prepared in the usual manner with Betadine, sterile draping and local anesthetic. An 18-gauge needle was used to enter th e left femoral artery, a wire placed and a 6 Sudanese sheath placed over a wire. With the assistance of an angled Glidewire, a 6 Sudanese JL4 catheter was advanced to the ascending aorta. It was then used t o engage the left coronary system and sequential injections in various views were obtained. Using an exchange wire a 6 Sudanese Judson right diagnostic catheter was advanced ascending aorta. It was then used to engage the right coronary artery and sequential injections in various views were obtained. A pigtail catheter was advanced to the ascending aorta and then the left ventricle. A 30 REICH left charlene tricular gram was performed. Pullback pressures were measured. Aortic root injection was performed. A abdominal aortic injection was then performed with runoffs concentrating on the right lower extremit y. The catheters were removed from the patient. The sheath was removed and hemostasis was obtained by direct pressure. Findings. Hemodynamics. Left ventricular pressure of 150/16, aortic root pressure 148/54. Coronaries. Left main. The left vein was a relatively short vessel. It had no lesions. Left anterior descending. The LAD was a moderately large vessel. It had a mid 15% lesion. Left circumflex. The left circumflex is a moderate size vessel. It had no lesions. Right coronary artery. The right coronary artery had a mid 15% lesion. Left ventriculogram. Injection of the left ventricle resulted in a arrhythmia which spontaneously resolved. However due to this an ejection fraction and LV analysis could not be obtained. Aortic root injection. The aortic root appeared normal. There was no aortic insufficiency. Abdominal aortic angiogram with runoff. The right iliac system was proximally occluded with collateralization. <Conclusion> Mild coronary artery disease with no lesions greater than 20%. Left ventriculogram was compromised by an arrhythmia which resolved spontaneously post injection. Severe peripheral vascular disease with an occluded right iliac system.
== END 2016-07-13 17:00 | disposition home or self-care (01) ==
LOC: ER 16:56 → INTOOBSV 20:40 → 5 NORTH 20:40
PROVIDERS: ADMIT Internal Medicine Hematology & Oncology; ATTEND Internal Medicine Hematology & Oncology
DX: I73.9 Peripheral vascular disease, unspecified (principal); I65.22 Occlusion and stenosis of left carotid artery; J18.9 Pneumonia, unspecified organism; R79.89 Other specified abnormal findings of blood chemistry; I42.9 Cardiomyopathy, unspecified; I51.89 Other ill-defined heart diseases; I10 Essential (primary) hypertension; I50.23 Acute on chronic systolic (congestive) heart failure; F17.210 Nicotine dependence, cigarettes, uncomplicated; Z82.3 Family history of stroke; Z82.49 Family history of ischemic heart disease and other diseases of the circulatory system; Z23 Encounter for immunization
CPT/HCPCS: 36415; 71010; 75625; 80048; 80061; 80076; 83690; 83735; 83880; 84443; 84484; 85027; 85610; 87040; 87502; 87804; 90471; 90472; 90686; 90732; 93005; 93306; 93458; 93567; 93880; 94250; 94640; 94760; 96372; 96374; 96375; 97161; 97165; 99406; C1769; C1892; G0378; G0379; J0780; J1940; J2250; J3010; J7030; J7620; Q0144; Q9967

== ENCOUNTER → 2016-11-02 | Outpatient (CLI) | payer BC ==
[~2016-11-02] VITALS: Ht 175.3 cm; Wt 70.3 kg
[2016-11-02] VITALS (9 sets, daily range): BP systolic 132–168; BP diastolic 61–78
[~2016-11-02] MED LIST changes: +ASPI81TA9 PO; +LIDOCAINE 1% / SOD BICARB 8.4% 20 ML VIAL. IJ ONE; +MIDAZOLAM HCL/PF 2 MG/2 ML VIAL. IV ONE; +MIDAZOLAM HCL/PF 2 MG/2 ML VIAL. ONE; +POTA10TA10 PO; +VARE1TAB21 PO; +atorvastatin PO; +carvedilol PO; +fentaNYL PF VIAL 100 MCG/2 ML VIAL IV ONE; +fentaNYL PF VIAL 100 MCG/2 ML VIAL ONE; +losartan PO
[2016-11-02 07:54] LABS: BASO % 0 % (0-3); EOS % 3 % (0-3); HEMATOCRIT 38.8 % (36.0-47.0); HEMOGLOBIN 12.7 g/dL (12.0-15.5); LYMPH % 30 % (24-48); MEAN CORPUSCULAR HEMOGLOBIN 28 pg (25-35); MEAN CORPUSCULAR HGB CONC 33 g/dL (31-37); MEAN CORPUSCULAR VOLUME 85 fL (79-100); MONO % 4 % (0-9); NEUT % 63 % (31-73); PLATELET COUNT 250 x10^3/uL (140-400); RED BLOOD COUNT 4.58 x10^6/uL (3.50-5.40); RED CELL DISTRIBUTION WIDTH 14.4 % (11.5-14.5); WHITE BLOOD COUNT 6.7 x10^3/uL (4.0-11.0)
[2016-11-02 08:04] LABS: INR 1.2 (0.8-1.1); PROTHROMBIN TIME PATIENT 14.6 SEC (11.7-14.0)
--- NOTE | 2016-11-02 09:36 | PDOC ---
MODERATE SEDATION ASSESSMENT RISKS/ALTERNATIVES Risks/Alternatives Risks and alternatives of this type of sedation and procedure discussed with: RISK/ALTERNATIVES: Patient H & P ON CHART H & P H & P on chart and reviewed for co-morbid conditions and appropriate labs. H&P ON CHART: Yes STATUS PREG STATUS ASSESSED: N/A MEDS/ALLERGIES REVIEWED Meds/Allergies Reviewed Medications and Allergies including time and route of recently administered narcotics and sedatives. MEDS/ALLERGIES REVIEWED: Yes ASA RATING ASA RATING: I AIRWAY ASSESSMENT Airway Assessment Airway patency, oral function limitations, presence of caps, crowns, dentures, partials, and ability to extend neck assessed. AIRWAY ASSESSMENT: Yes MALLAMPATI SCORE MALLAMPATI SCORE: II PRE-SEDATION ASSESSMENT PRE-SEDATION ASSESSMENT: Yes CARMELIAT LION MD November 02, 2016 09:36
--- NOTE | 2016-11-02 09:41 | PDOC1 ---
History and Physical Date of Procedure Date of Admission 11/02/[address] guided bone biopsy Indication Indication 60 YO female with diffusely mixed lucent/sclerotic bone marrow of ? etiology Past Medical History Past Medical History See Nursing Pre procedure PMH Past Surgical History Past Surgical History See Nursing Pre Procedure PSH Current Medications Current Medications Current Medications Lidocaine/Sodium Bicarbonate (Buffered Lidocaine 1%) 20 ml STK-MED ONCE IJ ; Start 11/02/16 at 07:54; Stop 11/02/16 at 07:55; Status DC Midazolam HCl (Versed) 2 mg STK-MED ONCE .ROUTE ; Start 11/02/16 at 08:49; Stop 11/02/16 at 08:50; Status DC Fentanyl Citrate (Fentanyl 2ml Vial) 100 mcg STK-MED ONCE .ROUTE ; Start at 08:49; Stop 11/02/16 at 08:50; Status DC Lidocaine/Sodium Bicarbonate (Buffered Lidocaine 1%) 20 ml 1X ONCE IJ Last administered on 11/02/16 09:24; Start 11/02/16 at 09:15; Stop 11/02/16 at 09:16; Status DC Midazolam HCl (Versed) 2 mg 1X ONCE IV Last administered on 11/02/16 09:25; Start 11/02/16 at 09:15; Stop 11/02/16 at 09:16; Status DC Fentanyl Citrate (Fentanyl 2ml Vial) 100 mcg 1X ONCE IV Last administered on 09:25; Start 11/02/16 at 09:15; Stop 11/02/16 at 09:16; Status DC Active Scripts Active Reported Chantix (Varenicline Tartrate) 1 Mg Tablet 1 Mg PO DAILY [losartan] 25 Mg PO DAILY [carvedilol] 3.125 Mg PO BID [atorvastatin] 10 Mg PO QHS Aspirin Ec (Aspirin) 81 Mg Tablet.dr 81 Mg PO DAILY Allergies Allergies: Coded Allergies: No Known Drug Allergies (Unverified , 07/04/16) Physical Exam Vital Signs Vital Signs Date Time Temp Pulse Resp B/P Pulse Ox O2 Delivery O2 Flow Rate FiO2 11/02/16 09:25 18 95 Nasal Cannula 3.0 11/02/16 09:21 79 11/02/16 07:30 97.7 160/77 97.7 Lungs: Clear to auscultation Heart: Regular rate Psych/Mental Status: Mental status NL Diagnostic Data/Imaging Images Outside CTA from [facility] dated 09/13/16 reviewed personally. Assessment Assessment Diffusely abnormal mixed lucent/sclerotic bone marrow of ? etiology. Problems: Plan Plan CT guided bone biopsy CARMELITA LION MD November 02, 2016 09:41
--- NOTE | 2016-11-02 09:44 | PDOC ---
Exam [employer] Director [employer] Director Chayo Pre-Procedure Diagnosis Pre-Procedure Diagnosis Diffusely abnormal bone marrow architecture---mixed lucent/sclerotic---? etilogy Post-Procedure Diagnosis Post-Procedure Diagnosis Same Procedure Performed Procedure Performed CT guided drill assisted core bx right posterior iliac bone. Type of Anesthesia Type of Anesthesia Local + Mod sedation Estimated Blood Loss EBL: Trace Specimens Specimans 1 11G core bx to path in formalin Condition of Patient Condition of Patient Stable. No apparent complication. Disposition Disposition Home from [facility] post recovery, if no problems. F/u with Dr Euceda. Full report to follow. CARMELITA LION MD November 02, 2016 09:44
--- NOTE | 2016-11-02 13:06 | RAD ---
CT-guided power drill assisted bone biopsy Indication: 52-year-old female with diffusely inhomogeneous, mixed lucent and sclerotic bone marrow architecture, of uncertain underlying etiology. Image guided bone biopsy has been requested by oncology. Anesthesia: 17 minutes moderate sedation was provided utilizing a total of 3 mg Versed and 150 mcg fentanyl, IV. The patient was appropriately monitored by a qualified independent observer throughout the time of moderate sedation. Procedure: Informed consent was obtained from the patient. She was placed prone on the CT scanner. Preliminary noncontrast CT images were obtained through pelvis. A right posterior skin site suitable for CT-guided bone biopsy from posterior right iliac bone was selected and marked. That area was prepped and draped in the usual sterile fashion. Conscious sedation was provided with IV Versed and fentanyl. Using aseptic technique, local anesthesia, and CT guidance, and the [employer] power hook up driver, successful percutaneous entry was achieved through posterior cortex of right iliac bone. Using CT guidance, the OnControl power hook up driver was then utilized to obtain a single, 11-gauge core biopsy sample from marrow cavity of right iliac bone. The biopsy sample was submitted to pathology in formalin. A sterile dressing was applied over the biopsy skin puncture site. Patient tolerated the procedure well without apparent complication. Impression: Successful, uneventful CT-guided bone biopsy, utilizing the On[employer] power drill assisted biopsy system, as described. PQRS compliance statement: One or more of the following individualized dose reduction techniques were utilized for this CT procedure: 1. Automated exposure control. 2. Adjustment of MA and/or KV according to patient size. 3. Iterative reconstruction technique.
== END | disposition home or self-care (01) ==
LOC: INTRAD 06:59
PROVIDERS: ATTEND Internal Medicine Hematology & Oncology
DX: M89.8X8 Other specified disorders of bone, other site (principal); E78.00 Pure hypercholesterolemia, unspecified; I10 Essential (primary) hypertension; Z72.0 Tobacco use; Z79.01 Long term (current) use of anticoagulants
CPT/HCPCS: 20225; 36415; 77012; 85027; 85610; J2250; J3010

== ENCOUNTER → 2016-11-03 | Outpatient (CLI) | payer BC ==
[2016-11-02 11:00] VITALS: BP 156/77
[~2016-11-03] MED LIST changes: -LIDOCAINE 1% / SOD BICARB 8.4% 20 ML VIAL. IJ ONE; -MIDAZOLAM HCL/PF 2 MG/2 ML VIAL. IV ONE; -MIDAZOLAM HCL/PF 2 MG/2 ML VIAL. ONE; -fentaNYL PF VIAL 100 MCG/2 ML VIAL IV ONE; -fentaNYL PF VIAL 100 MCG/2 ML VIAL ONE
--- NOTE | 2016-11-03 17:15 | CARD ---
APPROVED REPORT EXAM: Two-dimensional and M-mode echocardiogram with Doppler and color Doppler. Other Information Quality : GoodHR: 88bpm Rhythm : NSR INDICATION Cardiomyopathy 2D DIMENSIONS RVDd1.8 (2.9-3.5cm)Left Atrium(2D)3.8 (1.6-4.0cm) IVSd1.1 (0.7-1.1cm)Aortic Root(2D)2.5 (2.0-3.7cm) LVDd4.9 (3.9-5.9cm)LVOT Diameter2.0 (1.8-2.4cm) PWd1.0 (0.7-1.1cm)LVDs3.6 (2.5-4.0cm) FS (%) 25.1 %SV55.1 ml Aortic Valve AoV Peak Cali.184.5cm/sAoV VTI34.1cm AO Peak GR.13.6mmHgLVOT Peak Cali.96.3cm/s AO Mean GR.7mmHgAVA (VMAX)1.65cm2 Mitral Valve MV E Thmeaskn71.5cm/sMV E Peak Gr.4mmHg MV DECEL [id number] A Rrjyhqnl59.8cm/s MV E Mean Gr.2mmHgE/A Ratio0.7 MV A [id number] Pulmonary Vein S1 Edyvhrqd73.1cm/sD2 Asgrwuvd23.4cm/s PVa [id number] LEFT VENTRICLE The Left Ventricle is mildly dilated. There is normal left ventricular wall thickness. Left ventricle systolic function is mild to moderately decreased. The Ejection Fraction is estimated at 38-40%. The re is global hypokinesis of the left ventricle. Transmitral Doppler flow pattern is Grade I-abnormal relaxation pattern. There is no ventricular septal defect visualized. RIGHT VENTRICLE The right ventricle is normal size. The right ventricular systolic function is normal. ATRIA The left atrium size is normal. The right atrium size is normal. The interatrial septum is intact wit h no evidence for an atrial septal defect or patent foramen ovale as noted on 2-D or Doppler imaging. AORTIC VALVE The aortic valve is moderately calcified but opens well. The aortic valve is trileaflet. Doppler and Color Flow revealed no significant aortic regurgitation. There is no significant aortic valvular sten osis. MITRAL VALVE Mitral annular calcification is mild. There is no evidence of mitral valve prolapse. There is no mitr al valve stenosis. Doppler and Color Flow revealed no mitral valve regurgitation noted. TRICUSPID VALVE The tricuspid valve is normal in structure and function. Doppler and Color Flow revealed trace tricus pid valve regurgitation. There is no tricuspid valve stenosis. PULMONIC VALVE The pulmonary valve is normal in structure and function. Doppler and Color Flow revealed no pulmonic valvular regurgitation. There is no pulmonic valvular stenosis. GREAT VESSELS The aortic root is normal in size. Normal pulmonary venous flow (Doppler). The IVC is normal in size and collapses >50% with inspiration. PERICARDIAL EFFUSION There is no pleural effusion. There is no evidence of significant pericardial effusion. Critical Notification Critical Value: No <Conclusion> The Left Ventricle is mildly dilated. Left ventricle systolic function is mild to moderately decreased. The Ejection Fraction is estimated at 38-40%. There is global hypokinesis of the left ventricle. There is no significant aortic valvular stenosis. Doppler and Color Flow revealed no significant aortic regurgitation. Doppler and Color Flow revealed no mitral valve regurgitation noted. Doppler and Color Flow revealed trace tricuspid valve regurgitation.
== END | disposition home or self-care (01) ==
LOC: ECHO 13:54
PROVIDERS: ATTEND Internal Medicine Cardiovascular Disease
DX: I07.1 Rheumatic tricuspid insufficiency (principal)
CPT/HCPCS: 93306

== ENCOUNTER → 2018-06-12 | Outpatient (CLI) | payer BC ==
[2016-11-02 11:00] VITALS: BP 156/77
[~2018-06-12] MED LIST changes: +ASPI-612 PO; -ASPI81TA9 PO; -POTA10TA10 PO; +POTA10TA12 PO
--- NOTE | 2018-06-12 10:03 | CARD ---
MR#: [id number] Date of Study: 06/12/2018 Ordering Physician: BERE JOLLY, Referring Physician: BERE JOLLY, Tech: Elyssa Haley [facility] APPROVED REPORT EXAM: Two-dimensional and M-mode echocardiogram with Doppler and color Doppler. Other Information Quality : GoodHR: 85bpm Rhythm : NSR INDICATION CAD 2D DIMENSIONS Left Atrium(2D)3.1 (1.6-4.0cm)IVSd1.4 (0.7-1.1cm) Aortic Root(2D)3.2 (2.0-3.7cm)LVDd4.8 (3.9-5.9cm) LVOT Diameter2.0 (1.8-2.4cm)PWd1.0 (0.7-1.1cm) LVDs3.3 (2.5-4.0cm)FS (%) 29.8 % SV59.8 mlLVEF(%)56.9 (>50%) M-Mode DIMENSIONS Left Atrium(MM)3.44 (2.5-4.0cm)Aortic Root3.24 (2.2-3.7cm) Aortic Valve AoV Peak Cali.210.6cm/sAoV VTI38.0cm AO Peak GR.17.7mmHgLVOT Peak Cali.89.3cm/s AO Mean GR.9mmHgAVA (VMAX)1.31cm2 SUSANNAH (VTI)1.40cm2 Mitral Valve MV E Ydziqdjk11.2cm/sMV E Peak Gr.5mmHg MV DECEL [id number] A Bbumkngl627.8cm/s MV E Mean Gr.3mmHgE/A Ratio0.7 MV A [id number] Pulmonary Valve PV Peak Svhcbxdi361.4cm/s Pulmonary Vein S1 Mgvyrxiw18.0cm/sD2 Hduinxhc21.6cm/s LEFT VENTRICLE The left ventricle is normal size. Proximal septal thickening is noted. The left ventricular systolic function is normal. The Ejection Fraction is 55-60%. There is normal LV segmental wall motion. Trans mitral Doppler flow pattern is Grade I-abnormal relaxation pattern. RIGHT VENTRICLE The right ventricle is normal size. There is normal right ventricular wall thickness. The right ventr icular systolic function is normal. ATRIA The left atrium size is normal. The right atrium size is normal. The interatrial septum is intact wit h no evidence for an atrial septal defect or patent foramen ovale as noted on 2-D or Doppler imaging. AORTIC VALVE The aortic valve is mildly calcified. The aortic valve is trileaflet. Doppler and Color Flow revealed no significant aortic regurgitation. There is mild valvular aortic stenosis. MITRAL VALVE The mitral valve is normal in structure and function. There is no evidence of mitral valve prolapse. There is no mitral valve stenosis. Doppler and Color-flow revealed trace mitral regurgitation. TRICUSPID VALVE The tricuspid valve is normal in structure and function. Doppler and Color Flow revealed no tricuspid valve regurgitation noted. There is no tricuspid valve prolapse or vegetation. There is no tricuspid valve stenosis. PULMONIC VALVE Pulmonic valve is not well visualized. GREAT VESSELS The aortic root is normal in size. The ascending aorta is normal in size. The IVC is normal in size a nd collapses >50% with inspiration. PERICARDIAL EFFUSION There is no evidence of significant pericardial effusion. Critical Notification Critical Value: No <Conclusion> The left ventricular systolic function is normal. The Ejection Fraction is 55-60%. There is normal LV segmental wall motion. Transmitral Doppler flow pattern is Grade I-abnormal relaxation pattern. There is mild valvular aortic stenosis. Doppler and Color-flow revealed trace mitral regurgitation. There is no evidence of significant pericardial effusion. Signed by : Jayson Sales, Electronically Approved : 06/12/2018 10:01:32
== END | disposition home or self-care (01) ==
LOC: ECHO 08:06
PROVIDERS: ATTEND Internal Medicine Cardiovascular Disease
DX: I35.0 Nonrheumatic aortic (valve) stenosis (principal); I25.10 Atherosclerotic heart disease of native coronary artery without angina pectoris
CPT/HCPCS: 93306